=== PATIENT | female | born 1950 | race African-American/Black ===

== ENCOUNTER 2018-10-02 20:17 | Emergency (ER) | payer OTHER, MEDICAID ==
[~2018-10-02] VITALS: Ht 162.6 cm; Wt 94.8 kg
[~2018-10-02 20:17] MED LIST: ANAS1TAB7; EPOGEN
[2018-10-02 20:59] VITALS: BP 170/77
== END 2018-10-03 02:06 | disposition home or self-care (01) ==
LOC: ER 20:21
DX: M65.311 Trigger thumb, right thumb (principal); E78.5 Hyperlipidemia, unspecified; Z90.49 Acquired absence of other specified parts of digestive tract; Z90.710 Acquired absence of both cervix and uterus
CPT/HCPCS: 29125; 73140

== ENCOUNTER 2024-08-06 13:51 | Inpatient (IN) | payer OTHER, MEDICAID ==
[~2024-08-06] VITALS: Ht 162.6 cm; Wt 96.3 kg
--- NOTE | 2024-08-06 14:40 | ECG ---
[facility] Test Date: 2024-08-06 Test Time: 14:19:22 Pat Name: CLARIBEL GEIGER Department: ER Room: 0222T Gender: F Mamma Logist: PAM : 1950 Requested By: LUCIANO LUGO Order Number: [id number] Reading MD: Tavares Cho Measurements Intervals Union Rate: 97 P: 67 LA: 131 QRS: 18 QRSD: 78 T: -18 QT: 416 QTc: 529 Interpretive Statements Sinus rhythm Low voltage, precordial leads Nonspecific T abnormalities, anterior leads Prolonged QT interval Baseline wander in lead(s) I,II,III,aVR,aVF,V1,V2,V3,V4,V6 Electronically Signed On 08-12-2024 21:46:36 PDT by Tavares Cho Please click the below link to view image of tracing.
--- NOTE | 2024-08-06 15:01 | ED.PDOC ---
SOB-HPI HPI Comments 74 y.o female with PMHx of breast cancer, HTN, hyperlipidemia, presents to the ED for a chief complaint of SOB associated with palpitations that started 1 week ago. Patient reports SOB worsens on exertion and is now experiencing lightheadedness with generalized weakness. Patient denies any nausea, vomiting, fever, chills, leg swelling, back pain. Patient was saturating at 86% on room air, was placed on 2 liters of oxygen via NC with improvement on respiration and saturation. 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 Family History Family History: Unknown Social History Smoker: Non-Smoker Alcohol: Denies ETOH Use Drugs: Denies Drug Use Lives In: Home Constitutional: denies: chills, diaphoresis, fatigue, fever, malaise, sweats, weakness, others EENTM: denies: blurred vision, double vision, ear bleeding, ear discharge, ear drainage, ear pain, ear ringing, eye pain, eye redness, hearing loss, mouth pain, mouth swelling, nasal discharge, nose bleeding, nose congestion, nose pain, photophobia, tearing, throat pain, throat swelling, voice changes, others Respiratory: reports: SOB at rest, shortness of breath, SOB with excertion; denies: cough, hemoptysis, orthopnea, stridor, wheezing, others Cardiovascular: reports: palpitations; denies: chest pain, dizzy spells, diaphoresis, Dyspnea on exertion, edema, irregular heart beat, left arm pain, lightheadedness, PND, syncope, others Gastrointestinal: denies: abdomen distended, abdominal pain, blood streaked bowels, constipated, diarrhea, dysphagia, difficulty swallowing, hematemesis, melena, nausea, poor appetite, poor fluid intake, rectal bleeding, rectal pain, vomiting, others Genitourinary: denies: abnormal vagina bleeding, burning, dyspareunia, dysuria, flank pain, frequency, hematuria, incontinence, pain, , vagina discharge, urgency, others Neurological: denies: dizziness, fainting, headache, left sided numbness, left sided weakness, numbness, paresthesia, pre-existing deficit, right sided numbness, right sided weakness, seizure, speech problems, tingling, tremors, weakness, others Musculoskeletal: denies: back pain, gout, joint pain, joint swelling, muscle pain, muscle stiffness, neck pain, others Integumetry: denies: bruises, change in color, change in hair/nails, dryness, laceration, lesions, lumps, rash, wounds, others Allergic/Immunocompromised: denies: Difficulty Healing, Frequent Infections, Hives, Itching, others Hematologic/Lymphatic: denies: anemia, blood clots, easy bleeding, easy bruising, swollen glands, others Endocrine: denies: excessive hunger, excessive sweating, excessive thirst, excessive urination, flushing, intolerance to cold, intolerance to heat, unexplained weight gain, unexplained weight loss, others Psychiatric: denies: anxiety, bipolar disorder, depression, hopeless, panic disorder, schizophrenia, sleepless, suicidal, others All Other Systems: Reviewed and Negative Physical Exam General Appearance: Moderate Distress HEENT: Normal ENT Inspection, Pharynx Normal, TMs Normal Neck: Full Range of Motion, Non-Tender, Normal, Normal Inspection Respiratory: Chest Non-Tender, Lungs Clear, No Accessory Muscle Use, No Respiratory Distress, Normal Breath Sounds Cardiovascular: No Edema, No JVD, No Murmur, No Gallop, Normal Peripheral Pulses, Regular Rate/Rhythm Breast Exam: Deferred Gastrointestinal: No Organomegaly, Non Tender, No Pulsatile Mass, Normal Bowel Sounds, Soft Genitalia: Deferred Pelvic: Deferred Rectal: Deferred Extremities: No calf tenderness, Normal capillary refill, Normal inspection, Normal range of motion, Non-tender, No pedal edema Musculoskeletal : Apperance: Normal Neurologic: Alert, waste disposal leakage tester II-XII nml as Tested, No Motor Deficits, Normal Affect, Normal Mood, No Sensory Deficits Cerebellar Function: Normal Reflexes: Normal Skin: Dry, Normal Color, Warm Lymphatic: No Adenopathy EKG EKG : Pulse Rate (adult): 97 Cardiac Rhythm: NSR Hypertrophy: LVH Was a procedure done? Was a procedure done?: No Differential Dx Differential Diagnosis: Asthma, Bronchitis, COPD, Pneumonia, Respiratory Distress, URI X-Ray, Labs, Meds, VS Vital Signs Date Time Temp Pulse Resp B/P (MAP) Pulse Ox O2 Delivery O2 Flow Rate FiO2 08/06/24 16:35 98.1 93 18 136/71 97 2.0 28 98.1 08/06/24 15:01 97 08/06/24 14:19 97 08/06/24 14:17 98.1 100 20 136/71 (92) 86 98.1 Lab Test 08/06/24 16:19 08/06/24 15:23 Range/Units Troponin I High Sensitivity 22 21 </=34 ng/L White Blood Count 9.0 4.4-10.8 10^3/uL Red Blood Count 4.05 4.0-5.20 10^6/uL Hemoglobin 11.8 L 12.2-16.2 g/dL Hematocrit 35.4 L 36.0-46.0 % Mean Corpuscular Volume 87.3 80.0-100.0 fL Mean Corpuscular Hemoglobin 29.1 28.0-32.0 pg Mean Corpuscular Hemoglobin Concent 33.3 32.0-36.0 g/dL Red Cell Distribution Width 15.5 H 11.8-14.3 % Platelet Count 242 140-450 10^3/uL Mean Platelet Volume 7.0 6.9-10.8 fL Neutrophils (%) (Auto) 70.4 37.0-80.0 % Lymphocytes (%) (Auto) 24.9 10.0-50.0 % Monocytes (%) (Auto) 4.4 0.0-12.0 % Eosinophils (%) (Auto) 0.1 0.0-7.0 % Basophils (%) (Auto) 0.2 0.0-2.0 % Neutrophils # (Auto) 6.3 1.6-8.6 10 ^3/uL Lymphocytes # (Auto) 2.2 0.4-5.4 10 ^3/uL Monocytes # (Auto) 0.4 0-1.3 10 ^3/uL Eosinophils # (Auto) 0 0-0.8 10 ^3/uL Basophils # (Auto) 0 0-0.2 10 ^3/uL Nucleated Red Blood Cells 0.2 % Erythrocyte Sedimentation Rate Pending D-Dimer, Quantitative 11.47 H 0.0-0.49 mg/L FEU Sodium Level 143 136-145 mmol/L Potassium Level 3.6 3.5-5.1 mmol/L Chloride Level 108 H 98-107 mmol/L Carbon Dioxide Level 24 20-31 mmol/L Anion Gap 11 5-15 Blood Urea Nitrogen 13 9-23 mg/dL Creatinine 0.74 0.550-1.02 mg/dL Glomerular Filtration Rate Calc 86 >90 mL/min BUN/Creatinine Ratio 17.6 10.0-20.0 Serum Glucose 103 74-106 mg/dL Calcium Level 9.3 8.7-10.4 mg/dL C-Reactive Protein High Sensitivity Pending B-Type Natriuretic Peptide 213.69 0-100 pg/mL XY CHEST XRAY 1 VIEW, IMPRESSION: Left basilar consolidation with pleural effusion could be pneumonia. The patient's troponin level x2 is within normal limits The CBC shows anemia with a hemoglobin of 11.8 and hematocrit of 35.4 The D-dimer is elevated at 11.47 At this time, we are getting a CAT scan of the chest to rule out PE BNP is 213.69 IV Hep-Lock has been established The patient will be admitted at this time The hospitalist did order a CAT scan angio of the chest to rule out PE Images Reviewed?: Images reviewed and evaluated by me Time of 1ST Reevaluation: 15:01 Reevaluation 1ST: Unchanged Patient Education/Counseling: Diagnosis, Treatment, Prognosis Family Education/Counseling: No Family Present Departure 1 Departure Time of Disposition: 16:56 Impression: Primary Impression: Acute chest pain Additional Impression: Elevated d-dimer Disposition: 09 ADMITTED INPATIENT Admit to: Tele Condition: Fair Critical Care Note Critical Care Time?: Yes (45 min-critical care time only) Stability Stability form required: Yes Unstable for transfer: Telemetry monitoring (Telemetry monitoring required), ED Physician Assesment (Clinical assesment) Heart Score Heart Score: Heart Score Response (Comments) Value History Slightly Suspicious 0 EKG Normal 0 Age >65 2 Risk Factors 1 or 2 risk factors 1 Troponin Normal limit 0 Total 3 I personally scribed for LUCIANO LUGO MD ([email or web address]) on 08/06/24 at 15:01. Electronically submitted by Maureen Isidro ([facility]). I personally scribed for LUCIANO LUGO MD ([email or web address]) on 08/06/24 at 15:16. Electronically submitted by Maureen Isidro ([facility]). I personally scribed for LUCIANO LUGO MD ([email or web address]) on 08/06/24 at 15:59. Electronically submitted by Maureen Isidro ([facility]). LUCIANO LUGO MD August 06, 2024 15:01
[2024-08-06 15:34] LABS: Basophils # (auto) 0 10 ^3/uL (0-0.2); Basophils % (auto) 0.2 % (0.0-2.0); Eosinophils # (auto) 0 10 ^3/uL (0-0.8); Eosinophils % (auto) 0.1 % (0.0-7.0); Hematocrit 35.4 % (36.0-46.0); Hemoglobin 11.8 g/dL (12.2-16.2); Lymphocytes # (auto) 2.2 10 ^3/uL (0.4-5.4); Lymphocytes % (auto) 24.9 % (10.0-50.0); Mean Corpuscular Hemoglobin 29.1 pg (28.0-32.0); Mean Corpuscular Hgb Conc. 33.3 g/dL (32.0-36.0); Mean Corpuscular Volume 87.3 fL (80.0-100.0); Monocytes # (auto) 0.4 10 ^3/uL (0-1.3); Monocytes % (auto) 4.4 % (0.0-12.0); Neutrophils # (auto) 6.3 10 ^3/uL (1.6-8.6); Neutrophils % (auto) 70.4 % (37.0-80.0); Nucleated Red Blood Cells % 0.2 %; Platelet Count (auto) 242 10^3/uL (140-450); Red Blood Cells 4.05 10^6/uL (4.0-5.20); Red Cell Distribution Width 15.5 % (11.8-14.3)
[2024-08-06 15:43] LABS: Potassium 3.6 mmol/L (3.5-5.1); Sodium 143 mmol/L (136-145)
[2024-08-06 15:44] LABS: Anion Gap 11 (5-15); Carbon Dioxide 24 mmol/L (20-31)
[2024-08-06 15:45] LABS: Calcium 9.3 mg/dL (8.7-10.4)
--- NOTE | 2024-08-06 15:46 | DVH ---
XY CHEST XRAY 1 VIEW, HISTORY: sob COMPARISON: None None TECHNICAL DATA: 1 view of the chest was obtained. FINDINGS: Lines and tubes: None Cardiomediastinal silhouette: normal Pulmonary vasculature: normal Lung expansion: normal Lung airspace: Left basilar consolidation with pleural effusion could be pneumonia. Lung interstitium: normal Pleura: Pneumothorax: no Bones: Unremarkable Other: no IMPRESSION: Left basilar consolidation with pleural effusion could be pneumonia.
[2024-08-06 15:48] LABS: Chloride 108 mmol/L (98-107)
[2024-08-06 15:49] LABS: BUN/Creatinine Ratio 17.6 (10.0-20.0); Blood Urea Nitrogen 13 mg/dL (9-23); Glucose 103 mg/dL (74-106)
[2024-08-06] MEDS ORDERED: AZITHROMYCIN 500MG/ 250ML 250 ML IV SCH (16:30)
[2024-08-06] MEDS ORDERED: ALBUTEROL SULF 2.5 MG/0.5ML(0.5%) NEB SOLN NEB SCH (16:30)
[2024-08-06 16:35] VITALS: BP 136/71; PULSE 93; RESP 18; TEMP 98.1; O2SAT 97
--- NOTE | 2024-08-06 16:44 | DVHHP2 ---
Admitting Diagnosis: Shortness of breaths History of Present Illness 74 y.o female with PMHx of breast cancer, HTN, hyperlipidemia, presents to the ED for a chief complaint of SOB associated with palpitations that started 1 week ago. Patient reports SOB worsens on exertion and is now experiencing lightheadedness with generalized weakness. Patient denies any nausea, vomiting, fever, chills, leg swelling, back pain. Patient was saturating at 86% on room air, was placed on 2 liters of oxygen via NC with improvement on respiration and saturation. 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 Family History Family History: Unknown Social History Smoker: Non-Smoker Alcohol: Denies ETOH Use Drugs: Denies Drug Use Lives In: Home Allergies: Coded Allergies: NO KNOWN ALLERGIES (Unverified , 08/29/09) Home Meds Reported Medications [Anastrozole1 Mg] (Anastrozole) 1 MG TAB No Conflict Check, MG 09/08/12 [Epogen] No Conflict Check 11/11/09 Current Medications Current Medications Medications (Trade) Dose Ordered Sig/Edouard Route PRN Reason Start Time Stop Time Status Last Admin Ceftriaxone Sodium 50 ml @ 100 mls/hr DAILY IV 08/06/24 16:30 Azithromycin 250 ml @ 125 mls/hr DAILY IV 08/06/24 16:30 UNV Albuterol (Ventolin Medneb) 2.5 mg Q6H NEB 08/06/24 16:30 08/06/24 16:34 DC Albuterol (Ventolin Medneb) 2.5 mg Q6H NEB 08/06/24 18:00 Vital Signs Vital Signs Date Time Temp Pulse Resp B/P (MAP) Pulse Ox O2 Delivery O2 Flow Rate FiO2 08/06/24 15:01 97 08/06/24 14:17 98.1 20 136/71 (92) 86 98.1 Physical Exam Generally 75 years old woman, overweight, sitting on chair. On nasal cannula. No apparent distress HEENT-atraumatic, normocephalic Heart-regular rate and rhythm Lungs decreased breath sounds on left lower lung sparks. Intermittent crackles Abdomen soft nontender nondistended Musculoskeletal-no edema cyanosis Neuro-AO x3, no focal deficits Results Labs Test 08/06/24 16:19 08/06/24 15:23 Range/Units White Blood Count 9.0 4.4-10.8 10^3/uL Red Blood Count 4.05 4.0-5.20 10^6/uL Hemoglobin 11.8 L 12.2-16.2 g/dL Hematocrit 35.4 L 36.0-46.0 % Mean Corpuscular Volume 87.3 80.0-100.0 fL Mean Corpuscular Hemoglobin 29.1 28.0-32.0 pg Mean Corpuscular Hemoglobin Concent 33.3 32.0-36.0 g/dL Red Cell Distribution Width 15.5 H 11.8-14.3 % Platelet Count 242 140-450 10^3/uL Mean Platelet Volume 7.0 6.9-10.8 fL Neutrophils (%) (Auto) 70.4 37.0-80.0 % Lymphocytes (%) (Auto) 24.9 10.0-50.0 % Monocytes (%) (Auto) 4.4 0.0-12.0 % Eosinophils (%) (Auto) 0.1 0.0-7.0 % Basophils (%) (Auto) 0.2 0.0-2.0 % Neutrophils # (Auto) 6.3 1.6-8.6 10 ^3/uL Lymphocytes # (Auto) 2.2 0.4-5.4 10 ^3/uL Monocytes # (Auto) 0.4 0-1.3 10 ^3/uL Eosinophils # (Auto) 0 0-0.8 10 ^3/uL Basophils # (Auto) 0 0-0.2 10 ^3/uL Nucleated Red Blood Cells 0.2 % D-Dimer, Quantitative 11.47 H 0.0-0.49 mg/L FEU Sodium Level 143 136-145 mmol/L Potassium Level 3.6 3.5-5.1 mmol/L Chloride Level 108 H 98-107 mmol/L Carbon Dioxide Level 24 20-31 mmol/L Anion Gap 11 5-15 Blood Urea Nitrogen 13 9-23 mg/dL Creatinine 0.74 0.550-1.02 mg/dL Glomerular Filtration Rate Calc 86 >90 mL/min BUN/Creatinine Ratio 17.6 10.0-20.0 Serum Glucose 103 74-106 mg/dL Calcium Level 9.3 8.7-10.4 mg/dL B-Type Natriuretic Peptide 213.69 0-100 pg/mL Primary Diagnosis Shortness of breaths likely due to left lower lobe pneumonia Plan Chest x-ray shows left lower lobe pneumonia Patient has history of cancer likely immunosuppressed Check CRP, procalcitonin, ESR, sputum culture Start ceftriaxone 1 g daily Azithromycin 500 mg IV daily Adjust antibiotic according to the ID and sensitivity Oxygen saturation goal greater than 90% Duo nebs q.6 hours If symptoms does not improve, check CT chest for abnormal lung pathology Regular diet Full code Lovenox for DVT prophylaxis No GI prophylaxis needed Plan discussed with: Patient Problems List: (1) Left lower lobe pneumonia Date of Service: August 06, 2024 Billing Provider: SHAHRZAD MURRY MD Common Visit Codes: [id number] INP/OBS CARE (MOD) SHAHRZAD MURRY MD August 06, 2024 16:44
[2024-08-06] MEDS ORDERED: DOCUSATE SOD 100 MG CAP PO PRN (16:45)
[2024-08-06] MEDS ORDERED: HYDROcodone-ACET 5/325MG TAB PO PRN (16:45)
[2024-08-06] MEDS ORDERED: ONDANSETRON HCL 4 MG/2 ML VIAL IV PRN (16:45)
[2024-08-06] MEDS: cefTRIAXone 1GM/50ML D5W 50 ML IV SCH (18:20)
[2024-08-06] MEDS: DOXYCYCLINE 100MG/100ML 100 ML IV SCH (18:20)
[2024-08-06 18:22] LABS: COVID19 ANTIGEN SOFIA FIA NEGATIVE (NEGATIVE)
[2024-08-06] MEDS: IOHEXOL 350 MG/ML 100ML IJ ONE (19:08)
[2024-08-06 19:14] VITALS: PULSE 91; RESP 18; O2SAT 92
[2024-08-06] MEDS: ALBUTEROL SULF 2.5 MG/0.5ML(0.5%) NEB SOLN NEB SCH (19:14)
[2024-08-06 19:19] LABS: Erythrocyte Sedimentation Rate 13 mm/hr (0-20)
[2024-08-06 19:20] VITALS: PULSE 91; RESP 18; O2SAT 98
--- NOTE | 2024-08-06 19:30 | DVH ---
Procedure: CT CT ANGIO CHEST CONTRAST Reason for study/Clinical History: elevated d-dimer r/o PE Comparison Study: None Exam Date: 08/06/2024 06:37 PM Radiation Dose Information: CT Dose: CTDI volume is 8.88 mGy. Dose-length product is 828.06 mGy*cm Contrast: Type of contrast: Omni 350 Contrast inject: 50 mL Contrast wasted:0 TECHNIQUE: After the uneventful administration of intravenous contrast intravenously, CT imaging was performed through the chest. Coronal and sagittal reformations were performed by the technologist. FINDINGS: Lower Neck: Enlarged heterogeneous right and left lobes of the thyroid consider thyroid ultrasound fo r further evaluation. Aorta and Vasculature: Normal caliber of thoracic aorta. Filling defects in the right and left pulmon destiny arteries in the 3rd and 4th or order branches. Findings are consistent with pulmonary emboli. Lymph Nodes: No enlarged intrathoracic lymph nodes. Mediastinum: Heart size is normal. There is no pericardial effusion. The esophagus is unremarkable. Lungs: Moderate left pleural effusion with atelectasis. No suspicious pulmonary nodule or mass. Musculoskeletal: No acute osseous abnormality. Upper abdomen: Limited portions of the upper abdomen are unremarkable. IMPRESSION: 1. Bilateral pulmonary emboli in the 3rd and 4th order branches. 2. Moderately large left pleural effusion with atelectasis in the left upper lobe. CRITICAL FINDINGS Critical Result: PULMONARY EMBOLI Findings discussed with Dr Kidd , at 08/06/2024 07:08 PM, and acknowledged receipt and understandin g of the findings. All CT scans at this medical facility are performed using dose modulation techniques as appropriate t o a performed exam including the following: Automated exposure control was utilized; adjustment of th e MA and/or KV according to patient size; and use of iterative reconstruction technique.
[2024-08-06 19:46] LABS: Urine Bacteria None Seen /hpf (None Seen)
[2024-08-06] MEDS ORDERED: HEPARIN DRIP/D5W 100UNITS/ML 250 ML IV SCH (20:00)
[2024-08-06 20:01] LABS: Urine Blood Negative /uL (Negative); Urine Clarity Clear (Clear); Urine Color Yellow (Yellow); Urine Mucus FEW (None Seen); Urine Protein, UAD 1+ (Negative); Urine Squamous Epithelial Cell FEW /hpf (<5); Urine Urobilinogen Normal (Negative); Urine WBC 4 /HPF (0-5)
[2024-08-06 20:09] LABS: Urine Specific Gravity > 1.050 (1.001-1.035)
[2024-08-06 20:52] VITALS: O2SAT 84
[2024-08-06 21:00] LABS: Basophils # (auto) 0 10 ^3/uL (0-0.2); Basophils % (auto) 0.2 % (0.0-2.0); Eosinophils # (auto) 0 10 ^3/uL (0-0.8); Eosinophils % (auto) 0.1 % (0.0-7.0); Hematocrit 36.6 % (36.0-46.0); Hemoglobin 11.8 g/dL (12.2-16.2); Lymphocytes # (auto) 2.1 10 ^3/uL (0.4-5.4); Lymphocytes % (auto) 21.1 % (10.0-50.0); Mean Corpuscular Hemoglobin 28.9 pg (28.0-32.0); Mean Corpuscular Hgb Conc. 32.2 g/dL (32.0-36.0); Mean Corpuscular Volume 89.9 fL (80.0-100.0); Monocytes # (auto) 0.6 10 ^3/uL (0-1.3); Monocytes % (auto) 5.4 % (0.0-12.0); Neutrophils # (auto) 7.4 10 ^3/uL (1.6-8.6); Neutrophils % (auto) 73.2 % (37.0-80.0); Platelet Count (auto) 243 10^3/uL (140-450); Red Blood Cells 4.08 10^6/uL (4.0-5.20); Red Cell Distribution Width 15.8 % (11.8-14.3); White Blood Cell 10.1 10^3/uL (4.4-10.8)
[2024-08-06 21:13] LABS: INR 1.08 (0.9-1.15); Partial Thromboplastin Time 23.9 SEC (24.5-34.5); Prothrombin Time 11.4 sec (9.3-11.8)
[2024-08-06 21:44] VITALS: BP 133/49; PULSE 102; RESP 20; TEMP 97.7; O2SAT 91
[2024-08-06] MEDS ORDERED: TIZA4CAP PO (21:52)
[2024-08-06] MEDS ORDERED: SIMV20TA20 PO (21:52)
[2024-08-06] MEDS ORDERED: CEL100T PO (21:52)
[2024-08-06] MEDS ORDERED: METF-1145 PO (21:52)
[2024-08-06] MEDS ORDERED: CARB200T4 PO (21:52)
[2024-08-06] MEDS ORDERED: MELO7.5T7 PO (21:52)
[2024-08-06] MEDS ORDERED: OMEP20TA PO (21:52)
[2024-08-06] MEDS ORDERED: AMLO1TAB23 PO (21:53)
[2024-08-06] MEDS ORDERED: OXY5T GT (21:55)
[2024-08-06] MEDS ORDERED: CHOL20007 PO (21:55)
[2024-08-07] VITALS (15 sets, daily range): BP systolic 107–153; BP diastolic 49–97; PULSE 79–102; RESP 16–20; TEMP 97.5–98.1; O2SAT 90–100
[2024-08-07] MEDS: HEPARIN SODIUM (PORCINE) 5000 UNITS/ML 1ML VIAL IV ONE (01:57)
[2024-08-07] MEDS: SODIUM CHLOR 0.9% PF (SALINE LOCK) 10ML VIAL/SYR IV SCH (01:58)
[2024-08-07] MEDS: HEPARIN DRIP/D5W 100UNITS/ML 250 ML IV SCH ×3 (02:11→21:37)
--- NOTE | 2024-08-07 08:31 | DVH ---
US CHEST ULTRASOUND, HISTORY: FLUID CHECK FOR POSSIBLE THORACENTESIS COMPARISON(S): None TECHNICAL DATA: Transverse and longitudinal images are obtained of the chest. FINDING: IMPRESSION(S): Large left pleural effusion.
[2024-08-07 09:03] LABS: INR 1.11 (0.9-1.15); Prothrombin Time 11.6 sec (9.3-11.8)
[2024-08-07 09:09] LABS: Partial Thromboplastin Time > 139.0 SEC (24.5-34.5)
[2024-08-07] MEDS ORDERED: ENOXAPARIN SOD 40 MG/0.4 ML SYRINGE SC SCH (10:00)
--- NOTE | 2024-08-07 12:37 | DVHPN2 ---
Subjective Patient continues to report having shortness of breath. Reviewed: Care Plan, H&P, Labs, Medications, Previous Orders Changes from previous H/P or p: No Changes General: Per HPI Objective Vitals Vital Signs Date Time Temp Pulse Resp B/P (MAP) Pulse Ox O2 Delivery O2 Flow Rate FiO2 08/07/24 11:08 91 Nasal Cannula 6.0 08/07/24 11:08 44 08/07/24 09:00 97.7 90 20 141/97 (112) 97.7 Intake/Output Intake and Output 08/07/24 07:00 Intake Total 150 ml Balance 150 ml Intake Oral 0 ml IV Total 150 ml General Appearance: Alert, Oriented X3, Cooperative, No acute distress, mild distress HEENT: Atraumatic, PERRLA Lungs: Other (Decreased breath sounds in the base.) Cardiovascular: Normal S1, Normal S2 Abdomen: Normal bowel sounds, Soft Musculoskeletal: Normal sensory function, Normal motor function Skin: Dry, Intact Psych/Mental Status: Mental status NL, Mood NL Medications Current Medications Medications Dose Ordered Sig/Edouard Route Start Time Stop Time Status Last Admin Dose Admin Ceftriaxone Sodium 50 ml @ 100 mls/hr DAILY IV 08/06/24 16:30 08/07/24 09:24 100 MLS/HR Albuterol 2.5 mg Q6H NEB 08/06/24 18:00 08/07/24 06:45 2.5 MG Sodium Chloride 10 ml Q8HR IV 08/06/24 22:00 08/07/24 09:40 10 ML Docusate Sodium 100 mg BIDPRN PRN PO 08/06/24 16:45 Acetaminophen 650 mg Q6HP PRN PO 08/06/24 16:45 Acetaminophen/ Hydrocodone Bitart 1 tab Q4HP PRN PO 08/06/24 16:45 Ondansetron HCl 4 mg Q4HP PRN IV 08/06/24 16:45 Doxycycline Hyclate 100 ml @ 50 mls/hr Q12H IV 08/06/24 17:30 08/07/24 06:30 50 MLS/HR Heparin Sodium/ Dextrose 250 ml @ 10 mls/hr Q24H IV 08/07/24 10:40 08/07/24 10:44 10 MLS/HR Laboratory Results Laboratory Tests 08/06/24 15:23 08/06/24 20:51 Chemistry Test 08/06/24 15:23 Calcium Level 9.3 mg/dL (8.7-10.4) Coagulation Test 08/06/24 15:23 08/06/24 20:51 08/07/24 08:01 D-Dimer, Quantitative 11.47 mg/L FEU (0.0-0.49) H Prothrombin Time 11.4 sec (9.3-11.8) 11.6 sec (9.3-11.8) Prothrombin Time INR 1.08 (0.9-1.15) 1.11 (0.9-1.15) Activated Partial Thromboplast Time 23.9 SEC (24.5-34.5) L > 139.0 SEC (24.5-34.5) *H Cardiac Markers Test 08/06/24 15:23 B-Type Natriuretic Peptide 213.69 pg/mL (0-100) Urinalysis Test 08/06/24 19:30 Urine Color Yellow (Yellow) Urine Clarity Clear (Clear) Urine pH 6.0 (5.0-9.0) Urine Specific [place] > 1.050 (1.001-1.035) Urine Protein 1+ (Negative) H Urine Ketones Negative (Negative) Urine Blood Negative /uL (Negative) Urine Nitrite Negative (Negative) Urine Bilirubin Negative (Negative) Urine Urobilinogen Normal mg/dL (Negative) Urine Leukocyte Esterase Negative /uL (Negative) Urine RBC 9 /hpf (0 - 4) Urine Microscopic WBC 4 /HPF (0-5) Urine Squamous Epithelial Cells Few /hpf (<5) Urine Bacteria None seen /hpf (None Seen) Urine Mucus Few (None Seen) Urine Glucose Normal mg/dL (Normal) Labs and/or images reviewed: Labs reviewed by me, Image(s) reviewed by me Assessment/Plan Assessment/Plan Impression: -acute hypoxic respiratory failure -bilateral pulmonary embolisms -left pleural effusion -history of breast cancer, 10 years ago -degenerative joint disease -rule out DVT -dyslipidemia Plan: -O2 supplementation to keep saturation greater than 92% -IR consultation for thoracentesis -heparin drip, pause no per discretion of interventional radiologist -to be DVT study of lower extremities -pain management -echocardiogram: Pending -check tumor markers -repeat labs in a.m. Total time spent with patient discussing and formulating plan of care: 35 minutes. This medical document was created using an electronic medical record system with [employer] dictation system. Although this document has been carefully reviewed, there may still be some phonetic and typographical errors. These areas are purely typographical due to imperfections of the software programs, and do not reflect any compromise in the patient's medical care. Plan discussed with: Patient, Other (RN) My Orders Orders - VICENTE MARQUIS NP Procedure Category Date Status Time Basic Metabolic Panel LAB 08/08/24 Verified 04:00 Complete Blood Count LAB 08/08/24 Verified 04:00 Bilat Lower Dvt US 08/07/24 Taken 11:17 Ca 125 (Serial) LAB 08/07/24 Transmitted 12:29 Carbohydrate Antigen LAB 08/07/24 Transmitted 19-9 Carcinoembryonic LAB 08/07/24 Transmitted Antigen 12:29 Regular Diet DIET 08/07/24 Transmitted Lunch Date of Service: August 07, 2024 Billing Provider: VICENTE MARQUIS NP Common Visit Codes: [id number] INP/OBS CARE(HIGH) VICENTE MARQUIS NP August 07, 2024 12:37
--- NOTE | 2024-08-07 12:52 | DVH ---
US BiLat Lower DVT HISTORY: positive PE COMPARISON: None TECHNIQUE: Duplex doppler evaluation of the deep venous system of the lower extremity from the common femoral veins, superficial femoral vein, great saphenous vein, deep femoral vein, popliteal vein, an d calf veins, including color doppler and spectral/pulsed waveform analysis, was performed. FINDINGS: Right: - Common femoral vein: Compressible - Deep femoral vein: Compressible - Femoral vein: Compressible - Popliteal vein: Compressible - Posterior tibial vein: Waveforms present - Peroneal vein: Waveforms present - Other: Nothing Left: - Common femoral vein: Compressible - Deep femoral vein: Compressible - Femoral vein: Compressible - Popliteal vein: Non Compressible - Posterior tibial vein: No Waveforms present - Other: Nothing IMPRESSION: Left popliteal vein DVT. Diya (RN) is aware of finding. No right lower extremity deep venous thrombosis.
--- NOTE | 2024-08-07 13:17 | DVH ---
PROCEDURE: ULTRASOUND GUIDED THORACENTESIS USING TEMPORARY CATHETER HISTORY: LT PLEURAL EFFUSION DOCUMENTATION: Informed consent was obtained and a procedural time out was performed. FINDINGS: The risks and benefits of the procedure including bleeding, infection and pneumothorax were explained to the patient and written informed consent obtained. Optimal site for puncture long the left posterior chest wall was determined using real-time ultrasoun d and the region sterilized. Local anesthesia was instilled. A 5 Slovenian catheter was then advanced into the pleural space and 1.2 liters of straw colored flui d was removed. The patient tolerated the procedure well. IMPRESSION: Ultrasound guided left thoracentesis. Procedure performed by Dr. Arana
--- NOTE | 2024-08-07 13:36 | DVH ---
INDICATION: POST THORACENTESIS TECHNIQUE: Frontal view of the chest. COMPARISON: XY CHEST XRAY 1 VIEW on DOS: 08/06/24 FINDINGS: Significantly decreased left pleural effusion status post thoracentesis.. The heart and mediastinal c ontours are grossly unremarkable. There is no evidence of pleural disease. The lungs are clear. T he bony structures of the chest are intact without fracture. IMPRESSION: 1. Significantly decreased left pleural effusion status post thoracentesis. No pneumothorax..
--- NOTE | 2024-08-07 14:16 | CONS ---
Pharmacy Clinical Information: HEPARIN PER PHARMACY SPOKE TO RASHAUN Macdonald REGARDING heparin dose change Current dose: 1350 units/hr CURRENT aPTT: > 139 on 08/07/24 at 08:01 BOLUS: no Hold heparin drip for 1 hr (Renae held drip at 09:40 on 08/07/2024) Then Decrease (new dose): 1000 units/hr Date and time new dose started: 10:44 ON 08/07/2024 Next aPTT: 08/07/2024 AT 16:45 RASHAUN Macdonald READ BACK NEW DOSE: 1000 UNITS/HR PEARL Ho August 07, 2024 14:16
[2024-08-07 15:42] LABS: Body Fluid Red Blood Cells 2444533 CUMM (0-2000); Body Fluid White Blood Cells 2606 CUMM (0-200)
[2024-08-07] MEDS: ACETAMINOPHEN 325 MG TAB PO PRN (18:16)
[2024-08-07 19:27] LABS: INR 1.33 (0.9-1.15); Prothrombin Time 13.7 sec (9.3-11.8)
[2024-08-07 19:38] LABS: Partial Thromboplastin Time 127.4 SEC (24.5-34.5)
[2024-08-08] VITALS (14 sets, daily range): BP systolic 115–157; BP diastolic 52–72; PULSE 77–106; RESP 16–20; TEMP 97.3–99.2; O2SAT 90–100
[2024-08-08 03:57] LABS: Basophils # (auto) 0 10 ^3/uL (0-0.2); Basophils % (auto) 0.3 % (0.0-2.0); Eosinophils # (auto) 0 10 ^3/uL (0-0.8); Hematocrit 32.4 % (36.0-46.0); Hemoglobin 10.6 g/dL (12.2-16.2); Lymphocytes # (auto) 1.6 10 ^3/uL (0.4-5.4); Lymphocytes % (auto) 14.1 % (10.0-50.0); Mean Corpuscular Hgb Conc. 32.7 g/dL (32.0-36.0); Mean Corpuscular Volume 88.6 fL (80.0-100.0); Monocytes # (auto) 0.6 10 ^3/uL (0-1.3); Monocytes % (auto) 5.2 % (0.0-12.0); Neutrophils # (auto) 9.3 10 ^3/uL (1.6-8.6); Neutrophils % (auto) 80.4 % (37.0-80.0); Nucleated Red Blood Cells % 0.1 %; Platelet Count (auto) 238 10^3/uL (140-450); Red Blood Cells 3.66 10^6/uL (4.0-5.20); Red Cell Distribution Width 15.2 % (11.8-14.3); White Blood Cell 11.6 10^3/uL (4.4-10.8)
[2024-08-08 04:02] LABS: Chloride 107 mmol/L (98-107); Sodium 139 mmol/L (136-145)
[2024-08-08 04:03] LABS: Anion Gap 10 (5-15); Carbon Dioxide 22 mmol/L (20-31)
[2024-08-08 04:08] LABS: BUN/Creatinine Ratio 14.5 (10.0-20.0)
[2024-08-08 04:11] LABS: INR 1.08 (0.9-1.15); Partial Thromboplastin Time 45.9 SEC (24.5-34.5); Prothrombin Time 11.4 sec (9.3-11.8)
[2024-08-08 04:25] LABS: Blood Urea Nitrogen 9 mg/dL (9-23); Calcium 8.3 mg/dL (8.7-10.4); Glucose 131 mg/dL (74-106); Potassium 3.3 mmol/L (3.5-5.1)
[2024-08-08] MEDS: HEPARIN DRIP/D5W 100UNITS/ML 250 ML IV SCH ×2 (05:30→15:37)
[2024-08-08 11:33] LABS: INR 1.11 (0.9-1.15); Partial Thromboplastin Time 63.1 SEC (24.5-34.5); Prothrombin Time 11.6 sec (9.3-11.8)
--- NOTE | 2024-08-08 11:50 | CONS ---
Pharmacy Clinical Information: HEPARIN PER PHARMACY SPOKE TO RASHAUN Laboy REGARDING heparin dose change Current dose: 900 units/hr CURRENT aPTT: 63.1 on 08/08/24 at 10:43 BOLUS: no NO dose change Next aPTT: 08/08/2024 AT 17:00 RASHAUN Laboy confirmed NICHOLAS [facility] August 08, 2024 11:50
[2024-08-08] MEDS: POTASSIUM EFFERVESENT TAB 25 MEQ PO ONE (12:07)
[2024-08-08 12:28] LABS: Base Excess -0.2 mmol/L (-2.0-3.0)
--- NOTE | 2024-08-08 13:49 | DVHPN2 ---
Subjective Patient continues to report having shortness of breath. Reviewed: Care Plan, H&P, Labs, Medications, Previous Orders Changes from previous H/P or p: No Changes General: Per HPI Objective Vitals Vital Signs Date Time Temp Pulse Resp B/P (MAP) Pulse Ox O2 Delivery O2 Flow Rate FiO2 08/08/24 11:10 104 125/70 (88) 08/08/24 10:00 94 Simple Mask* 10 99 08/08/24 09:00 98.3 16 98.3 Intake/Output Intake and Output 08/08/24 07:00 Intake Total 900 ml Balance 900 ml Intake Oral 650 ml IV Total 250 ml # Voids 6 General Appearance: Alert, Oriented X3, Cooperative, No acute distress, mild distress HEENT: Atraumatic, PERRLA Lungs: Other (Decreased breath sounds in the base.) Cardiovascular: Normal S1, Normal S2 Abdomen: Normal bowel sounds, Soft Musculoskeletal: Normal sensory function, Normal motor function Skin: Dry, Intact Psych/Mental Status: Mental status NL, Mood NL Medications Current Medications Medications Dose Ordered Sig/Edouard Route Start Time Stop Time Status Last Admin Dose Admin Ceftriaxone Sodium 50 ml @ 100 mls/hr DAILY IV 08/06/24 16:30 08/08/24 09:41 100 MLS/HR Albuterol 2.5 mg Q6H NEB 08/06/24 18:00 08/08/24 05:49 2.5 MG Sodium Chloride 10 ml Q8HR IV 08/06/24 22:00 08/08/24 05:19 10 ML Docusate Sodium 100 mg BIDPRN PRN PO 08/06/24 16:45 Acetaminophen 650 mg Q6HP PRN PO 08/06/24 16:45 08/07/24 18:16 650 MG Acetaminophen/ Hydrocodone Bitart 1 tab Q4HP PRN PO 08/06/24 16:45 Ondansetron HCl 4 mg Q4HP PRN IV 08/06/24 16:45 Doxycycline Hyclate 100 ml @ 50 mls/hr Q12H IV 08/06/24 17:30 08/08/24 05:18 50 MLS/HR Heparin Sodium/ Dextrose 250 ml @ 9 mls/hr Q24H IV 08/08/24 13:45 08/08/24 18:00 UNV Enoxaparin Sodium 90 mg Q12HR SC 08/08/24 22:00 UNV Laboratory Results Laboratory Tests 08/08/24 03:25 Chemistry Test 08/08/24 03:25 Calcium Level 8.3 mg/dL (8.7-10.4) L Coagulation Test 08/07/24 18:31 08/08/24 03:25 08/08/24 10:43 Prothrombin Time 13.7 sec (9.3-11.8) H 11.4 sec (9.3-11.8) 11.6 sec (9.3-11.8) Prothrombin Time INR 1.33 (0.9-1.15) H 1.08 (0.9-1.15) 1.11 (0.9-1.15) Activated Partial Thromboplast Time 127.4 SEC (24.5-34.5) *H 45.9 SEC (24.5-34.5) H 63.1 SEC (24.5-34.5) H Urinalysis Test 08/06/24 19:30 Urine Color Yellow (Yellow) Urine Clarity Clear (Clear) Urine pH 6.0 (5.0-9.0) Urine Specific [place] > 1.050 (1.001-1.035) Urine Protein 1+ (Negative) H Urine Ketones Negative (Negative) Urine Blood Negative /uL (Negative) Urine Nitrite Negative (Negative) Urine Bilirubin Negative (Negative) Urine Urobilinogen Normal mg/dL (Negative) Urine Leukocyte Esterase Negative /uL (Negative) Urine RBC 9 /hpf (0 - 4) Urine Microscopic WBC 4 /HPF (0-5) Urine Squamous Epithelial Cells Few /hpf (<5) Urine Bacteria None seen /hpf (None Seen) Urine Mucus Few (None Seen) Urine Glucose Normal mg/dL (Normal) Blood Gas Results Test 08/08/24 12:17 Arterial Blood pH 7.492 (7.350-7.450) FiO2 % 60.0 Microbiology Microbiology Date/Time Source Procedure Growth Status 08/07/24 13:08 Pleural Fluid Gram Stain - Final Resulted 08/07/24 13:08 Pleural Fluid Aerobic Culture - Preliminary Resulted 08/06/24 18:18 Blood Blood Culture - Preliminary NO GROWTH AFTER 24 HOURS OF INCUBATION. Resulted Labs and/or images reviewed: Labs reviewed by me, Image(s) reviewed by me Assessment/Plan Assessment/Plan Impression: -acute hypoxic respiratory failure -bilateral pulmonary embolisms -left pleural effusion -history of breast cancer, 10 years ago -degenerative joint disease -rule out DVT -dyslipidemia Plan: Events: Patient with increased O2 requirements, now on simple mask at 10 L/min. DVT study positive for occlusion to left popliteal vein. Thoracentesis with 1.2 L removed. -O2 supplementation to keep saturation greater than 92% -stop heparin drip this evening, transitioned to Lovenox -pain management -echocardiogram: Pending -check tumor markers: Pending -repeat labs in a.m. Total time spent with patient discussing and formulating plan of care: 35 minutes. This medical document was created using an electronic medical record system with [employer] dictation system. Although this document has been carefully reviewed, there may still be some phonetic and typographical errors. These areas are purely typographical due to imperfections of the software programs, and do not reflect any compromise in the patient's medical care. Plan discussed with: Patient, Other (RN) My Orders Orders - VICENTE MARQUIS NP Procedure Category Date Status Time Abg W/ Co-Ox RT 08/08/24 Logged 11:40 Complete Blood Count LAB 08/09/24 Verified 04:00 Comprehensive LAB 08/09/24 Verified Metabolic Panel 04:00 Heparin Drip/D5w PHA 08/08/24 Logged 100units/Ml 13:45 Enoxaparin Sodium PHA 08/08/24 Logged (Lovenox) 22:00 Date of Service: August 08, 2024 Billing Provider: VICENTE MARQUIS NP Common Visit Codes: [id number] INP/OBS CARE(HIGH) VICENTE MARQUIS NP August 08, 2024 13:49
[2024-08-08 14:07] LABS: Protein, Body Fluid 13.9 g/dL (.)
[2024-08-08 17:45] LABS: INR 1.14 (0.9-1.15); Prothrombin Time 11.9 sec (9.3-11.8)
[2024-08-08 18:13] LABS: Partial Thromboplastin Time 74.3 SEC (24.5-34.5)
[2024-08-08] MEDS: ENOXAPARIN SOD 100 MG/1 ML SYRINGE SC SCH (23:03)
[2024-08-09] VITALS (14 sets, daily range): BP systolic 114–140; BP diastolic 51–70; PULSE 81–111; RESP 12–18; TEMP 97.8–99.2; O2SAT 89–100
[2024-08-09 08:40] LABS: Basophils # (auto) 0 10 ^3/uL (0-0.2); Basophils % (auto) 0.2 % (0.0-2.0); Eosinophils # (auto) 0.1 10 ^3/uL (0-0.8); Eosinophils % (auto) 0.9 % (0.0-7.0); Hematocrit 31.5 % (36.0-46.0); Hemoglobin 10.1 g/dL (12.2-16.2); Lymphocytes # (auto) 1.5 10 ^3/uL (0.4-5.4); Lymphocytes % (auto) 12.6 % (10.0-50.0); Mean Corpuscular Hemoglobin 28.9 pg (28.0-32.0); Mean Corpuscular Hgb Conc. 32.1 g/dL (32.0-36.0); Mean Corpuscular Volume 90.1 fL (80.0-100.0); Monocytes # (auto) 0.8 10 ^3/uL (0-1.3); Monocytes % (auto) 6.7 % (0.0-12.0); Neutrophils # (auto) 9.6 10 ^3/uL (1.6-8.6); Neutrophils % (auto) 79.6 % (37.0-80.0); Nucleated Red Blood Cells % 0.1 %; Platelet Count (auto) 227 10^3/uL (140-450); Red Blood Cells 3.49 10^6/uL (4.0-5.20); Red Cell Distribution Width 15.6 % (11.8-14.3); White Blood Cell 12.1 10^3/uL (4.4-10.8)
[2024-08-09 08:58] LABS: Alanine Aminotransferase 21 U/L (7-40); Albumin 3.8 g/dL (3.2-4.8); Alkaline Phosphatase 108 U/L (46-116); Anion Gap 10 (5-15); Aspartate Aminotransferase 14 U/L (13-40); BUN/Creatinine Ratio 17.5 (10.0-20.0); Blood Urea Nitrogen 11 mg/dL (9-23); Calcium 9.2 mg/dL (8.7-10.4); Carbon Dioxide 23 mmol/L (20-31); Chloride 106 mmol/L (98-107); Potassium 3.9 mmol/L (3.5-5.1); Sodium 139 mmol/L (136-145); Total Protein 6.2 g/dL (5.7-8.2)
[2024-08-09 08:59] LABS: Bilirubin, Total 0.4 mg/dL (0.2-1.0)
[2024-08-09 09:01] LABS: Glucose 111 mg/dL (74-106)
--- NOTE | 2024-08-09 13:35 | DVHPN2 ---
Subjective Patient continues to report having shortness of breath. Reviewed: Care Plan, H&P, Labs, Medications, Previous Orders Changes from previous H/P or p: No Changes General: Per HPI Objective Vitals Vital Signs Date Time Temp Pulse Resp B/P (MAP) Pulse Ox O2 Delivery O2 Flow Rate FiO2 08/09/24 12:07 101 18 99 08/09/24 10:00 Simple Mask* 8 60 08/09/24 09:00 98.7 129/66 (87) 98.7 Intake/Output Intake and Output 08/09/24 07:00 Intake Total 1850 ml Balance 1850 ml Intake Oral 1600 ml IV Total 250 ml # Voids 4 # Bowel Movements 1 General Appearance: Alert, Oriented X3, Cooperative, No acute distress, mild distress HEENT: Atraumatic, PERRLA Lungs: Other (Decreased breath sounds in the base.) Cardiovascular: Normal S1, Normal S2 Abdomen: Normal bowel sounds, Soft Musculoskeletal: Normal sensory function, Normal motor function Skin: Dry, Intact Psych/Mental Status: Mental status NL, Mood NL Medications Current Medications Medications Dose Ordered Sig/Edouard Route Start Time Stop Time Status Last Admin Dose Admin Ceftriaxone Sodium 50 ml @ 100 mls/hr DAILY IV 08/06/24 16:30 08/09/24 08:38 100 MLS/HR Albuterol 2.5 mg Q6H NEB 08/06/24 18:00 08/09/24 12:01 2.5 MG Sodium Chloride 10 ml Q8HR IV 08/06/24 22:00 08/09/24 05:32 10 ML Docusate Sodium 100 mg BIDPRN PRN PO 08/06/24 16:45 Acetaminophen 650 mg Q6HP PRN PO 08/06/24 16:45 08/08/24 23:39 650 MG Acetaminophen/ Hydrocodone Bitart 1 tab Q4HP PRN PO 08/06/24 16:45 Ondansetron HCl 4 mg Q4HP PRN IV 08/06/24 16:45 Doxycycline Hyclate 100 ml @ 50 mls/hr Q12H IV 08/06/24 17:30 08/09/24 05:25 50 MLS/HR Enoxaparin Sodium 90 mg Q12HR SC 08/08/24 22:00 08/09/24 08:37 90 MG Laboratory Results Laboratory Tests 08/09/24 07:31 Chemistry Test 08/09/24 07:31 Albumin 3.8 g/dL (3.2-4.8) Calcium Level 9.2 mg/dL (8.7-10.4) Total Protein 6.2 g/dL (5.7-8.2) Coagulation Test 08/08/24 17:06 Prothrombin Time 11.9 sec (9.3-11.8) H Prothrombin Time INR 1.14 (0.9-1.15) Activated Partial Thromboplast Time 74.3 SEC (24.5-34.5) *H LFT Test 08/09/24 07:31 Alanine Aminotransferase (ALT) 21 U/L (7-40) Alkaline Phosphatase 108 U/L (46-116) Aspartate Amino Transferase (AST) 14 U/L (13-40) Total Bilirubin 0.4 mg/dL (0.2-1.0) Urinalysis Test 08/06/24 19:30 Urine Color Yellow (Yellow) Urine Clarity Clear (Clear) Urine pH 6.0 (5.0-9.0) Urine Specific [place] > 1.050 (1.001-1.035) Urine Protein 1+ (Negative) H Urine Ketones Negative (Negative) Urine Blood Negative /uL (Negative) Urine Nitrite Negative (Negative) Urine Bilirubin Negative (Negative) Urine Urobilinogen Normal mg/dL (Negative) Urine Leukocyte Esterase Negative /uL (Negative) Urine RBC 9 /hpf (0 - 4) Urine Microscopic WBC 4 /HPF (0-5) Urine Squamous Epithelial Cells Few /hpf (<5) Urine Bacteria None seen /hpf (None Seen) Urine Mucus Few (None Seen) Urine Glucose Normal mg/dL (Normal) Microbiology Microbiology Date/Time Source Procedure Growth Status 08/07/24 13:08 Pleural Fluid Gram Stain - Final Resulted 08/07/24 13:08 Pleural Fluid Aerobic Culture - Preliminary Resulted 08/06/24 18:18 Blood Blood Culture - Preliminary NO GROWTH AFTER 48 HOURS OF INCUBATION. Resulted Labs and/or images reviewed: Labs reviewed by me, Image(s) reviewed by me Assessment/Plan Assessment/Plan Impression: -acute hypoxic respiratory failure -bilateral pulmonary embolisms -left pleural effusion -history of breast cancer, 10 years ago -degenerative joint disease -rule out DVT -dyslipidemia Plan: Events: Continues to be on O2 supplementation 6 L/min. Pleural fluid cytology pending. -O2 supplementation to keep saturation greater than 92% -continue anticoagulation with Lovenox -pain management -echocardiogram: Pending -check tumor markers: Reviewed -repeat labs and chest x-ray in a.m. -long discussion made with the patient regarding noted differential diagnosis. Verbalized understanding. All questions answered. Total time spent with patient discussing and formulating plan of care: 35 minutes. This medical document was created using an electronic medical record system with [employer] dictation system. Although this document has been carefully reviewed, there may still be some phonetic and typographical errors. These areas are purely typographical due to imperfections of the software programs, and do not reflect any compromise in the patient's medical care. Plan discussed with: Patient, Other (RN) My Orders Orders - VICENTE MARQUIS NP Procedure Category Date Status Time Enoxaparin Sodium PHA 08/08/24 In Process (Lovenox) 22:00 Date of Service: August 09, 2024 Billing Provider: VICENTE MARQUIS NP Common Visit Codes: [id number] INP/OBS CARE(HIGH) VICENTE MARQUIS NP August 09, 2024 13:35
[2024-08-10] VITALS (15 sets, daily range): BP systolic 109–145; BP diastolic 53–69; PULSE 90–102; RESP 16–19; TEMP 97.4–98.6; O2SAT 93–100
--- NOTE | 2024-08-10 08:59 | DVHSR ---
APPROVED REPORT EXAM: Two-dimensional and M-mode echocardiogram with Doppler and color Doppler. Blood Pressure: 153/69 mmHg INDICATION PE RISK FACTORS Height: 5'4", Weight: 165 DIMENSIONS LVDd4.2 (3.8-5.7cm)LA (2D)3.8 (1.9-4.0cm)Aortic Root (2.0-3.7cm) LVDs2.6 (2.5-4.0cm)LA (MM) (1.9-4.0cm)Aortic Cusp Exc (1.5-2.0cm) EF (%) 67.0 (55-70%)Rt. Atrium4.3 (1.9-4.0cm)Asc. Aorta cm IVSd0.8 (0.7-1.1cm)RV (D) (1.8-2.4cm) Mitral Valve MitralMitral Stenosis E/A ratio0.02D MVAcm2 Tricuspid Valve TR Velocity3.62m/s [id number] Other Information Quality : Technically LimitedRhythm : Technically limited study due to body habitus. Conclusion Sinus rhythm. Off axis views. Right atrial enlargement. RV enlargement. RV outflow tract enlargement. Pulmonary artery enlargeme nt. Valves appear to be structurally. Left ventricular function is preserved. EF of 60% with normal RV function. [id number] tricuspid insufficiency with pulmonary hypertension. No pericardial effusion masses or vegetations. There appears to be large left pleural effusion.
[2024-08-10] MEDS: SODIUM CHLORIDE 0.9% 1,000 ML IV ONE (12:15)
--- NOTE | 2024-08-10 12:37 | DVHPN2 ---
Subjective Patient continues to report having shortness of breath. Reviewed: Care Plan, H&P, Labs, Medications, Previous Orders Changes from previous H/P or p: No Changes General: Per HPI Objective Vitals Vital Signs Date Time Temp Pulse Resp B/P (MAP) Pulse Ox O2 Delivery O2 Flow Rate FiO2 08/10/24 11:52 97 16 100 08/10/24 11:46 Nasal Cannula 4.0 08/10/24 11:46 36 08/10/24 09:00 98.6 129/53 (78) 98.6 Intake/Output Intake and Output 08/10/24 07:00 Intake Total 2165 ml Balance 2165 ml Intake Oral 1915 ml IV Total 250 ml # Voids 7 # Bowel Movements 2 General Appearance: Alert, Oriented X3, Cooperative, No acute distress, mild distress HEENT: Atraumatic, PERRLA Lungs: Other (Decreased breath sounds in the base.) Cardiovascular: Normal S1, Normal S2 Abdomen: Normal bowel sounds, Soft Musculoskeletal: Normal sensory function, Normal motor function Skin: Dry, Intact Psych/Mental Status: Mental status NL, Mood NL Medications Current Medications Medications Dose Ordered Sig/Edouard Route Start Time Stop Time Status Last Admin Dose Admin Ceftriaxone Sodium 50 ml @ 100 mls/hr DAILY IV 08/06/24 16:30 08/10/24 08:25 100 MLS/HR Albuterol 2.5 mg Q6H NEB 08/06/24 18:00 08/10/24 11:46 2.5 MG Sodium Chloride 10 ml Q8HR IV 08/06/24 22:00 08/10/24 05:24 10 ML Docusate Sodium 100 mg BIDPRN PRN PO 08/06/24 16:45 Acetaminophen 650 mg Q6HP PRN PO 08/06/24 16:45 08/09/24 20:20 650 MG Acetaminophen/ Hydrocodone Bitart 1 tab Q4HP PRN PO 08/06/24 16:45 Ondansetron HCl 4 mg Q4HP PRN IV 08/06/24 16:45 Doxycycline Hyclate 100 ml @ 50 mls/hr Q12H IV 08/06/24 17:30 08/10/24 05:15 50 MLS/HR Enoxaparin Sodium 90 mg Q12HR SC 08/08/24 22:00 08/10/24 08:26 90 MG Laboratory Results Laboratory Tests 08/09/24 07:31 Urinalysis Test 08/06/24 19:30 Urine Color Yellow (Yellow) Urine Clarity Clear (Clear) Urine pH 6.0 (5.0-9.0) Urine Specific [place] > 1.050 (1.001-1.035) Urine Protein 1+ (Negative) H Urine Ketones Negative (Negative) Urine Blood Negative /uL (Negative) Urine Nitrite Negative (Negative) Urine Bilirubin Negative (Negative) Urine Urobilinogen Normal mg/dL (Negative) Urine Leukocyte Esterase Negative /uL (Negative) Urine RBC 9 /hpf (0 - 4) Urine Microscopic WBC 4 /HPF (0-5) Urine Squamous Epithelial Cells Few /hpf (<5) Urine Bacteria None seen /hpf (None Seen) Urine Mucus Few (None Seen) Urine Glucose Normal mg/dL (Normal) Microbiology Microbiology Date/Time Source Procedure Growth Status 08/07/24 13:08 Pleural Fluid Gram Stain - Final Resulted 08/07/24 13:08 Pleural Fluid Aerobic Culture - Preliminary Resulted 08/06/24 18:18 Blood Blood Culture - Preliminary NO GROWTH AFTER 72 HOURS OF INCUBATION. Resulted Labs and/or images reviewed: Labs reviewed by me, Image(s) reviewed by me Assessment/Plan Assessment/Plan Impression: -acute hypoxic respiratory failure -bilateral pulmonary embolisms -left pleural effusion -history of breast cancer, 10 years ago -degenerative joint disease -rule out DVT -dyslipidemia Plan: Events: Discussed pathology report of pleural fluid with noted malignant cells. Pathologist requested additional pleural fluid if patient has recurrent effusion. Repeat CT scan of chest, abdomen, pelvis with positive reoccurrence of effusion. IR consultation placed. -O2 supplementation to keep saturation greater than 92% -continue anticoagulation with Lovenox -pain management -echocardiogram: Pending -check tumor markers: Reviewed -findings of pathology report discussed with the patient. Patient agreeable for CT scan. Total time spent with patient discussing and formulating plan of care: 35 minutes. This medical document was created using an electronic medical record system with [employer] system. Although this document has been carefully reviewed, there may still be some phonetic and typographical errors. These areas are purely typographical due to imperfections of the software programs, and do not reflect any compromise in the patient's medical care. Plan discussed with: Patient, Other (RN) My Orders Orders - VICENTE MARQUIS TELECOMMUNICATIONS CONSULTANT Procedure Category Date Status Time Ct Chest/Ab/Pl W Con- CT 08/10/24 Taken Iv Only 11:12 Sodium Chloride 0.9% PHA 08/10/24 In Process 11:15 Complete Blood Count LAB 08/11/24 Verified 04:00 Comprehensive LAB 08/11/24 Verified Metabolic Panel 04:00 * Radiologist Consult CONS 08/10/24 Transmitted 12:33 Date of Service: August 10, 2024 Billing Provider: VICENTE MARQUIS NP Common Visit Codes: [id number] INP/OBS CARE(HIGH) VICENTE MARQUIS NP August 10, 2024 12:37
--- NOTE | 2024-08-10 13:20 | DVH ---
Exam: CT CT CHEST/AB/PL W CON- IV ONLY History: rule out pleural effusion, check for metastatic ca Comparison Study: CTA chest dated 08/06/2024 Technique: Multidetector spiral CT of the chest, abdomen and pelvis was performed from lower neck to pubic symphysis. Intravenous contrast was administered during this examination. Portal venous imagi ng was obtained. Axial, coronal and sagittal multiplanar reformats were performed by the technologist on a separate workstation. Radiation Dose : 1. Chest/Abdomen/Pelvis: CTDIvol 28.09 mGy, DLP 1791.33 mGy*cm. Findings: Lower neck: Normal thyroid. Lungs: No focal consolidation, pleural effusion or pneumothorax. Heart/Vascular Structures: Normal heart size. No pericardial effusion. Redemonstration of pulmonary e mbolism in the right main pulmonary artery (suboptimally evaluated). Lymph Nodes: No adenopathy Pleura: Moderate left pleural effusion. Pleural thickening is present in the left hemithorax measurin g up to 4.9 cm in the posteromedial left lower lung. Liver: The liver is normal in size. No focal lesions. Normal hepatic vascular enhancement. Gallbladder and Biliary Tree: Unremarkable Spleen: Unremarkable Pancreas: The pancreas is normal in appearance without focal lesions or abnormal enhancement. Adrenal Glands: Unremarkable Kidneys: Kidneys demonstrate normal symmetric enhancement without focal lesions, calculi or hydroneph rosis. Right upper pole renal cyst. Bladder: Unremarkable Bowel: The stomach is grossly normal in appearance. Small bowel and colon are normal in caliber and d istribution. The appendix is not visualized; however, no secondary findings of acute appendicitis sunita ntified. Ascites: Absent Lymphadenopathy: No mesenteric, retroperitoneal or periportal lymphadenopathy. Abdominal Wall and Mesentery: Unremarkable. Vasculature: The visualized abdominal aorta is normal in size and caliber. Abdominal and pelvic vess els demonstrate normal enhancement. Pelvic Organs: The uterus is surgically absent. Musculoskeletal: No aggressive focal bony lesions, acute fractures or dislocation. Degenerative foster es of the spine. IMPRESSION: Masslike pleural thickening in the posteromedial left lower hemithorax measuring 4.9 cm. This is susp icious for neoplasm. Moderate left pleural effusion. No acute or suspicious finding in the abdomen or pelvis.
--- NOTE | 2024-08-10 15:02 | DVH ---
XY CHEST PORTABLE, HISTORY: POST THORACENTESIS COMPARISON: XY CHEST PORTABLE on DOS: 08/07/24, XY CHEST XRAY 1 VIEW on DOS: 08/06/24 XY CHEST PORTABLE on DOS: 08/07/24, XY CHEST XRAY 1 VIEW on DOS: 08/06/24 TECHNICAL DATA: 1 view of the chest was obtained. FINDINGS: Lines and tubes: None Cardiomediastinal silhouette: normal Pulmonary vasculature: normal Lung expansion: normal Lung airspace: normal Lung interstitium: normal Pleura: Decreased left pleural effusion Pneumothorax: no Bones: Unremarkable Other: no IMPRESSION: No pneumothorax and decreased left pleural effusion.
--- NOTE | 2024-08-10 15:03 | DVH ---
US THORACENTESIS, HISTORY: PLEURAL EFFUSION DIAGONOSTIC PROCEDURE: Informed consent was obtained. The patient was seated on the bed. A limited localization u ltrasound of the left thorax was obtained, and the optimal approach was marked on the skin. The area was prepped with chlorhexidine which was allowed to dry and draped in the usual sterile fashion. Time out was performed. The skin and the soft tissues were infiltrated with 1% lidocaine. A 5.5 Vincentian ce ntesis needle catheter was advanced into left pleural space. Following aspiration of fluid, the demian ter was advanced and the needle removed. About 1100 cc of fluid was drained. Specimen/s was/were sent for appropriate cultures/cytology/cultures and cytology. No immediate complication was identified. FINDINGS: Moderate left pleural effusion. Aspirated fluid is serosanguinous. IMPRESSION: Left thoracentesis with 1.1L removed.
[2024-08-10 17:03] LABS: Platelet Count (auto) 295 10^3/uL (140-450)
[2024-08-10 18:00] LABS: Body Fluid Red Blood Cells 1544836 CUMM (0-2000); Body Fluid White Blood Cells 3688 CUMM (0-200)
[2024-08-10 18:31] LABS: Eosinophils % (manual) 1 (0-7); Lymphocytes % (manual) 15 (10.0-50.0); Monocytes % (manual) 7 (0-12)
[2024-08-10 18:32] LABS: Platelet Estimate Adequate
[2024-08-11] VITALS (9 sets, daily range): BP systolic 115–148; BP diastolic 59–74; PULSE 80–106; RESP 16–18; TEMP 97.7–99; O2SAT 96–99
[2024-08-11] MEDS: IOHEXOL 300 MG/ML 100ML BOTTLE IJ ONE (08:01)
[2024-08-11 08:04] LABS: Basophils # (auto) 0 10 ^3/uL (0-0.2); Basophils % (auto) 0.3 % (0.0-2.0); Eosinophils # (auto) 0.1 10 ^3/uL (0-0.8); Hematocrit 27.2 % (36.0-46.0); Hemoglobin 9.2 g/dL (12.2-16.2); Lymphocytes # (auto) 1.9 10 ^3/uL (0.4-5.4); Lymphocytes % (auto) 19.7 % (10.0-50.0); Mean Corpuscular Hemoglobin 29.3 pg (28.0-32.0); Mean Corpuscular Hgb Conc. 33.9 g/dL (32.0-36.0); Mean Corpuscular Volume 86.2 fL (80.0-100.0); Monocytes # (auto) 0.5 10 ^3/uL (0-1.3); Monocytes % (auto) 5.1 % (0.0-12.0); Neutrophils # (auto) 7.2 10 ^3/uL (1.6-8.6); Neutrophils % (auto) 73.9 % (37.0-80.0); Nucleated Red Blood Cells % 0.1 %; Platelet Count (auto) 290 10^3/uL (140-450); Red Blood Cells 3.15 10^6/uL (4.0-5.20); Red Cell Distribution Width 14.6 % (11.8-14.3); White Blood Cell 9.8 10^3/uL (4.4-10.8)
[2024-08-11 08:14] LABS: Alanine Aminotransferase 32 U/L (7-40); Albumin 3.6 g/dL (3.2-4.8); Anion Gap 8 (5-15); Aspartate Aminotransferase 24 U/L (13-40); BUN/Creatinine Ratio 20.7 (10.0-20.0); Bilirubin, Total 0.4 mg/dL (0.2-1.0); Blood Urea Nitrogen 12 mg/dL (9-23); Calcium 9.1 mg/dL (8.7-10.4); Carbon Dioxide 24 mmol/L (20-31); Chloride 107 mmol/L (98-107); Glucose 101 mg/dL (74-106); Potassium 3.6 mmol/L (3.5-5.1); Sodium 139 mmol/L (136-145); Total Protein 5.8 g/dL (5.7-8.2)
[2024-08-11 08:16] LABS: Alkaline Phosphatase 116 U/L (46-116)
--- NOTE | 2024-08-11 12:46 | DVHPN2 ---
Subjective Patient continues to report having shortness of breath. Reviewed: Care Plan, H&P, Labs, Medications, Previous Orders Changes from previous H/P or p: No Changes General: Per HPI Objective Vitals Vital Signs Date Time Temp Pulse Resp B/P (MAP) Pulse Ox O2 Delivery O2 Flow Rate FiO2 08/11/24 10:00 97 Nasal Cannula* 3 32 08/11/24 09:00 98.6 88 16 122/59 (80) 98.6 Intake/Output Intake and Output 08/11/24 07:00 Intake Total 1538 ml Output Total 502 ml Balance 1036 ml Intake Oral 1388 ml IV Total 150 ml Output Urine Total 500 ml Stool Total 2 ml # Voids 6 General Appearance: Alert, Oriented X3, Cooperative, No acute distress, mild distress HEENT: Atraumatic, PERRLA Lungs: Other (Decreased breath sounds in the base.) Cardiovascular: Normal S1, Normal S2 Abdomen: Normal bowel sounds, Soft Musculoskeletal: Normal sensory function, Normal motor function Skin: Dry, Intact Psych/Mental Status: Mental status NL, Mood NL Medications Current Medications Medications Dose Ordered Sig/Edouard Route Start Time Stop Time Status Last Admin Dose Admin Ceftriaxone Sodium 50 ml @ 100 mls/hr DAILY IV 08/06/24 16:30 08/11/24 09:59 100 MLS/HR Sodium Chloride 10 ml Q8HR IV 08/06/24 22:00 08/11/24 05:38 10 ML Docusate Sodium 100 mg BIDPRN PRN PO 08/06/24 16:45 Acetaminophen 650 mg Q6HP PRN PO 08/06/24 16:45 08/10/24 17:37 650 MG Acetaminophen/ Hydrocodone Bitart 1 tab Q4HP PRN PO 08/06/24 16:45 Ondansetron HCl 4 mg Q4HP PRN IV 08/06/24 16:45 Doxycycline Hyclate 100 ml @ 50 mls/hr Q12H IV 08/06/24 17:30 08/11/24 05:38 50 MLS/HR Enoxaparin Sodium 90 mg Q12HR SC 08/08/24 22:00 08/11/24 09:59 90 MG Laboratory Results Laboratory Tests 08/11/24 06:39 Chemistry Test 08/11/24 06:39 Albumin 3.6 g/dL (3.2-4.8) Calcium Level 9.1 mg/dL (8.7-10.4) Total Protein 5.8 g/dL (5.7-8.2) LFT Test 08/11/24 06:39 Alanine Aminotransferase (ALT) 32 U/L (7-40) Alkaline Phosphatase 116 U/L (46-116) Aspartate Amino Transferase (AST) 24 U/L (13-40) Total Bilirubin 0.4 mg/dL (0.2-1.0) Urinalysis Test 08/06/24 19:30 Urine Color Yellow (Yellow) Urine Clarity Clear (Clear) Urine pH 6.0 (5.0-9.0) Urine Specific [place] > 1.050 (1.001-1.035) Urine Protein 1+ (Negative) H Urine Ketones Negative (Negative) Urine Blood Negative /uL (Negative) Urine Nitrite Negative (Negative) Urine Bilirubin Negative (Negative) Urine Urobilinogen Normal mg/dL (Negative) Urine Leukocyte Esterase Negative /uL (Negative) Urine RBC 9 /hpf (0 - 4) Urine Microscopic WBC 4 /HPF (0-5) Urine Squamous Epithelial Cells Few /hpf (<5) Urine Bacteria None seen /hpf (None Seen) Urine Mucus Few (None Seen) Urine Glucose Normal mg/dL (Normal) Microbiology Microbiology Date/Time Source Procedure Growth Status 08/10/24 14:45 Pleural Fluid Gram Stain Pending Resulted 08/10/24 14:45 Pleural Fluid Aerobic Culture - Preliminary Resulted 08/06/24 18:18 Blood Blood Culture - Preliminary NO GROWTH AFTER 72 HOURS OF INCUBATION. Resulted Labs and/or images reviewed: Labs reviewed by me, Image(s) reviewed by me Assessment/Plan Assessment/Plan Impression: -acute hypoxic respiratory failure -bilateral pulmonary embolisms -left pleural effusion -history of breast cancer, 10 years ago -degenerative joint disease -rule out DVT -dyslipidemia -pulmonary hypertension -rule out malignancy Plan: Events: Repeat pleural effusion noted on a CT scan with questionable lung neoplasm. Patient had repeat thoracentesis with 1 L removed, sent to pathology. -O2 supplementation to keep saturation greater than 92% -continue anticoagulation with Lovenox -pain management -echocardiogram: Reviewed -check tumor markers: Reviewed -repeat chest x-ray in a.m. Total time spent with patient discussing and formulating plan of care: 35 minutes. This medical document was created using an electronic medical record system with [employer] computerized dictation system. Although this document has been carefully reviewed, there may still be some phonetic and typographical errors. These areas are purely typographical due to imperfections of the software programs, and do not reflect any compromise in the patient's medical care. Plan discussed with: Patient, Other (RN) My Orders Orders - VICENTE MARQUIS NP Procedure Category Date Status Time Thoracentesis US 08/10/24 Resulted 12:55 Date of Service: August 11, 2024 Billing Provider: VICENTE MARQUIS NP Common Visit Codes: [id number] INP/OBS CARE(HIGH) VICENTE MARQUIS NP August 11, 2024 12:46
[2024-08-12] VITALS (10 sets, daily range): BP systolic 120–158; BP diastolic 51–78; PULSE 79–102; RESP 16–20; TEMP 97.8–99.2; O2SAT 96–99
[2024-08-12] MEDS: MAALOX PLUS or MAALOX 30 ML PO PRN (04:48)
--- NOTE | 2024-08-12 09:14 | DVH ---
CHEST RADIOGRAPH Indication: evaluate pleural effusion Technique: Single frontal view of the chest was obtained COMPARISON: 08/10/2024 FINDINGS: The cardiac silhouette is enlarged. The lungs demonstrate bilateral patchy airspace opacities, most p ronounced in the left perihilar and left mid lung region. The pulmonary vasculature is prominent. Mod erate left pleural effusion, increased from prior. There is no pneumothorax. Cervical fusion hardware . Postsurgical changes left axilla. IMPRESSION: 1. As above. Follow-up to resolution, especially for the left hilar airspace opacification.
--- NOTE | 2024-08-12 13:46 | DVHPN2 ---
Subjective Patient reports improvement with shortness of breaths. Reviewed: Care Plan, H&P, Labs, Medications, Previous Orders Changes from previous H/P or p: Changes General: Per HPI Objective Vitals Vital Signs Date Time Temp Pulse Resp B/P (MAP) Pulse Ox O2 Delivery O2 Flow Rate FiO2 08/12/24 10:00 99 Nasal Cannula 3.0 08/12/24 10:00 32 08/12/24 09:00 99.2 87 16 154/64 (94) 99.2 Intake/Output Intake and Output 08/12/24 07:00 Intake Total 1550 ml Output Total 800 ml Balance 750 ml Intake Oral 1300 ml IV Total 250 ml Output Urine Total 800 ml # Voids 4 # Bowel Movements 2 General Appearance: Alert, Oriented X3, Cooperative, No acute distress, mild distress HEENT: Atraumatic, PERRLA Lungs: Other (Decreased breath sounds in the base.) Cardiovascular: Normal S1, Normal S2 Abdomen: Normal bowel sounds, Soft Musculoskeletal: Normal sensory function, Normal motor function Skin: Dry, Intact Psych/Mental Status: Mental status NL, Mood NL Medications Current Medications Medications Dose Ordered Sig/Edouard Route Start Time Stop Time Status Last Admin Dose Admin Ceftriaxone Sodium 50 ml @ 100 mls/hr DAILY IV 08/06/24 16:30 08/12/24 10:00 100 MLS/HR Sodium Chloride 10 ml Q8HR IV 08/06/24 22:00 08/12/24 05:40 10 ML Docusate Sodium 100 mg BIDPRN PRN PO 08/06/24 16:45 Acetaminophen 650 mg Q6HP PRN PO 08/06/24 16:45 08/11/24 19:53 650 MG Acetaminophen/ Hydrocodone Bitart 1 tab Q4HP PRN PO 08/06/24 16:45 Ondansetron HCl 4 mg Q4HP PRN IV 08/06/24 16:45 Doxycycline Hyclate 100 ml @ 50 mls/hr Q12H IV 08/06/24 17:30 08/12/24 05:47 50 MLS/HR Enoxaparin Sodium 90 mg Q12HR SC 08/08/24 22:00 08/12/24 10:00 90 MG Al Hydrox/Mg Hydrox/Simethicone 30 ml Q8HPRN PRN PO 08/12/24 04:45 08/12/24 04:48 30 ML Laboratory Results Laboratory Tests 08/11/24 06:39 Urinalysis Test 08/06/24 19:30 Urine Color Yellow (Yellow) Urine Clarity Clear (Clear) Urine pH 6.0 (5.0-9.0) Urine Specific [place] > 1.050 (1.001-1.035) Urine Protein 1+ (Negative) H Urine Ketones Negative (Negative) Urine Blood Negative /uL (Negative) Urine Nitrite Negative (Negative) Urine Bilirubin Negative (Negative) Urine Urobilinogen Normal mg/dL (Negative) Urine Leukocyte Esterase Negative /uL (Negative) Urine RBC 9 /hpf (0 - 4) Urine Microscopic WBC 4 /HPF (0-5) Urine Squamous Epithelial Cells Few /hpf (<5) Urine Bacteria None seen /hpf (None Seen) Urine Mucus Few (None Seen) Urine Glucose Normal mg/dL (Normal) Microbiology Microbiology Date/Time Source Procedure Growth Status 08/10/24 14:45 Pleural Fluid Gram Stain - Final Resulted 08/10/24 14:45 Pleural Fluid Aerobic Culture - Preliminary Resulted 08/06/24 18:18 Blood Blood Culture - Final NO GROWTH AFTER 5 DAYS OF INCUBATION. Complete Labs and/or images reviewed: Labs reviewed by me, Image(s) reviewed by me Assessment/Plan Assessment/Plan Impression: -acute hypoxic respiratory failure -bilateral pulmonary embolisms -left pleural effusion -history of breast cancer, 10 years ago -degenerative joint disease -rule out DVT -dyslipidemia -pulmonary hypertension -rule out malignancy Plan: Events: Currently on nasal cannula at 4 L/min. No events overnight. -bone scan -midline placement -O2 supplementation to keep saturation greater than 92% -continue anticoagulation with Lovenox -pain management -echocardiogram: Reviewed -check tumor markers: Reviewed Total time spent with patient discussing and formulating plan of care: 35 minutes. This medical document was created using an electronic medical record system with [employer] dictation system. Although this document has been carefully reviewed, there may still be some phonetic and typographical errors. These areas are purely typographical due to imperfections of the software programs, and do not reflect any compromise in the patient's medical care. Plan discussed with: Patient, Other (RN) My Orders Orders - VICENTE MARQUIS NP Procedure Category Date Status Time Basic Metabolic Panel LAB 08/13/24 Verified 04:00 Complete Blood Count LAB 08/13/24 Verified 04:00 Insert Midline ORDERS 08/12/24 Transmitted 12:48 Date of Service: Aug 12, 2024 Billing Provider: VICENTE MARQUIS NP Common Visit Codes: [id number] INP/OBS CARE(HIGH) VICENTE MARQUIS NP Aug 12, 2024 13:46
[2024-08-13] VITALS (9 sets, daily range): BP systolic 105–137; BP diastolic 56–71; PULSE 71–100; RESP 18–19; TEMP 97.2–98.6; O2SAT 92–99
[2024-08-13 07:40] LABS: Basophils # (auto) 0 10 ^3/uL (0-0.2); Basophils % (auto) 0.2 % (0.0-2.0); Eosinophils # (auto) 0.1 10 ^3/uL (0-0.8); Eosinophils % (auto) 1.2 % (0.0-7.0); Hematocrit 26.1 % (36.0-46.0); Hemoglobin 8.6 g/dL (12.2-16.2); Lymphocytes # (auto) 1.4 10 ^3/uL (0.4-5.4); Lymphocytes % (auto) 17.6 % (10.0-50.0); Mean Corpuscular Hemoglobin 28.9 pg (28.0-32.0); Mean Corpuscular Hgb Conc. 33.1 g/dL (32.0-36.0); Mean Corpuscular Volume 87.5 fL (80.0-100.0); Monocytes # (auto) 0.6 10 ^3/uL (0-1.3); Monocytes % (auto) 7.4 % (0.0-12.0); Neutrophils # (auto) 5.8 10 ^3/uL (1.6-8.6); Neutrophils % (auto) 73.6 % (37.0-80.0); Nucleated Red Blood Cells % 0.1 %; Platelet Count (auto) 359 10^3/uL (140-450); Red Blood Cells 2.99 10^6/uL (4.0-5.20); Red Cell Distribution Width 14.7 % (11.8-14.3); White Blood Cell 7.8 10^3/uL (4.4-10.8)
[2024-08-13 07:54] LABS: Anion Gap 7 (5-15); Carbon Dioxide 25 mmol/L (20-31); Chloride 104 mmol/L (98-107); Sodium 136 mmol/L (136-145)
[2024-08-13 07:55] LABS: Calcium 8.7 mg/dL (8.7-10.4)
[2024-08-13 08:00] LABS: BUN/Creatinine Ratio 13.2 (10.0-20.0); Blood Urea Nitrogen 7 mg/dL (9-23); Glucose 169 mg/dL (74-106)
[2024-08-13] MEDS: POTASSIUM EFFERVESENT TAB 25 MEQ PO ONE (13:15)
[2024-08-13 13:17] LABS: Basophils # (auto) 0 10 ^3/uL (0-0.2); Eosinophils # (auto) 0 10 ^3/uL (0-0.8); Eosinophils % (auto) 0.5 % (0.0-7.0); Lymphocytes # (auto) 1.8 10 ^3/uL (0.4-5.4); Monocytes # (auto) 0.4 10 ^3/uL (0-1.3); Nucleated Red Blood Cells % 0.1 %
[2024-08-13 13:18] LABS: Basophils % (auto) 0.3 % (0.0-2.0); Hematocrit 24.9 % (36.0-46.0); Hemoglobin 8.4 g/dL (12.2-16.2); Lymphocytes % (auto) 22.9 % (10.0-50.0); Mean Corpuscular Hemoglobin 29.8 pg (28.0-32.0); Mean Corpuscular Hgb Conc. 33.7 g/dL (32.0-36.0); Mean Corpuscular Volume 88.3 fL (80.0-100.0); Monocytes % (auto) 5.2 % (0.0-12.0); Neutrophils # (auto) 5.6 10 ^3/uL (1.6-8.6); Neutrophils % (auto) 71.1 % (37.0-80.0); Platelet Count (auto) 341 10^3/uL (140-450); Red Blood Cells 2.82 10^6/uL (4.0-5.20); White Blood Cell 7.9 10^3/uL (4.4-10.8)
--- NOTE | 2024-08-13 13:56 | DVHPN2 ---
Subjective Patient reports improvement with shortness of breaths. Reviewed: Care Plan, H&P, Labs, Medications, Previous Orders Changes from previous H/P or p: No Changes General: Per HPI Objective Vitals Vital Signs Date Time Temp Pulse Resp B/P (MAP) Pulse Ox O2 Delivery O2 Flow Rate FiO2 08/13/24 13:00 98.2 71 18 105/62 (76) 97 98.2 08/13/24 10:00 Nasal Cannula* 3 32 Intake/Output Intake and Output 08/13/24 07:00 Intake Total 1150 ml Balance 1150 ml Intake Oral 900 ml IV Total 250 ml # Voids 6 # Bowel Movements 1 General Appearance: Alert, Oriented X3, Cooperative, No acute distress, mild distress HEENT: Atraumatic, PERRLA Lungs: Other (Decreased breath sounds in the base.) Cardiovascular: Normal S1, Normal S2 Abdomen: Normal bowel sounds, Soft Musculoskeletal: Normal sensory function, Normal motor function Skin: Dry, Intact Psych/Mental Status: Mental status NL, Mood NL Medications Current Medications Medications Dose Ordered Sig/Edouard Route Start Time Stop Time Status Last Admin Dose Admin Ceftriaxone Sodium 50 ml @ 100 mls/hr DAILY IV 08/06/24 16:30 08/13/24 11:05 100 MLS/HR Sodium Chloride 10 ml Q8HR IV 08/06/24 22:00 08/13/24 13:16 10 ML Docusate Sodium 100 mg BIDPRN PRN PO 08/06/24 16:45 Acetaminophen 650 mg Q6HP PRN PO 08/06/24 16:45 08/13/24 11:06 650 MG Acetaminophen/ Hydrocodone Bitart 1 tab Q4HP PRN PO 08/06/24 16:45 Ondansetron HCl 4 mg Q4HP PRN IV 08/06/24 16:45 Doxycycline Hyclate 100 ml @ 50 mls/hr Q12H IV 08/06/24 17:30 08/13/24 05:34 50 MLS/HR Enoxaparin Sodium 90 mg Q12HR SC 08/08/24 22:00 08/13/24 11:06 90 MG Al Hydrox/Mg Hydrox/Simethicone 30 ml Q8HPRN PRN PO 08/12/24 04:45 08/12/24 04:48 30 ML Amlodipine Besylate 10 mg DAILY PO 08/14/24 10:00 Pantoprazole Sodium 40 mg DAILY@0600 PO 08/14/24 06:00 Laboratory Results Laboratory Tests 08/13/24 06:09 08/13/24 13:00 Chemistry Test 08/13/24 06:09 Calcium Level 8.7 mg/dL (8.7-10.4) Urinalysis Test 08/06/24 19:30 Urine Color Yellow (Yellow) Urine Clarity Clear (Clear) Urine pH 6.0 (5.0-9.0) Urine Specific [place] > 1.050 (1.001-1.035) Urine Protein 1+ (Negative) H Urine Ketones Negative (Negative) Urine Blood Negative /uL (Negative) Urine Nitrite Negative (Negative) Urine Bilirubin Negative (Negative) Urine Urobilinogen Normal mg/dL (Negative) Urine Leukocyte Esterase Negative /uL (Negative) Urine RBC 9 /hpf (0 - 4) Urine Microscopic WBC 4 /HPF (0-5) Urine Squamous Epithelial Cells Few /hpf (<5) Urine Bacteria None seen /hpf (None Seen) Urine Mucus Few (None Seen) Urine Glucose Normal mg/dL (Normal) Microbiology Microbiology Date/Time Source Procedure Growth Status 08/10/24 14:45 Pleural Fluid Gram Stain - Final Resulted 08/10/24 14:45 Pleural Fluid Aerobic Culture - Preliminary Resulted 08/06/24 18:18 Blood Blood Culture - Final NO GROWTH AFTER 5 DAYS OF INCUBATION. Complete Labs and/or images reviewed: Labs reviewed by me, Image(s) reviewed by me Assessment/Plan Assessment/Plan Impression: -acute hypoxic respiratory failure -bilateral pulmonary embolisms -left pleural effusion -history of breast cancer, 10 years ago -degenerative joint disease -rule out DVT -dyslipidemia -pulmonary hypertension -rule out malignancy -primary hypertension Plan: Events: Currently on nasal cannula at 3 L/min. -bone scan -midline placement -O2 supplementation to keep saturation greater than 92% -continue anticoagulation with Lovenox -pain management -echocardiogram: Reviewed -check tumor markers: Reviewed Total time spent with patient discussing and formulating plan of care: 35 minutes. This medical document was created using an electronic medical record system with [employer] system. Although this document has been carefully reviewed, there may still be some phonetic and typographical errors. These areas are purely typographical due to imperfections of the software programs, and do not reflect any compromise in the patient's medical care. Plan discussed with: Patient, Other My Orders Orders - VICENTE MARQUIS NP Procedure Category Date Status Time Basic Metabolic Panel LAB 08/14/24 Verified 04:00 Magnesium LAB 08/14/24 Verified 04:00 Amlodipine Tablet PHA 08/14/24 In Process (Norvasc Tablet) 10:00 Pantoprazole Tablet PHA 08/14/24 In Process (Protonix Tablet) 06:00 Date of Service: Aug 13, 2024 Billing Provider: VICENTE MARQUIS NP Common Visit Codes: [id number] INP/OBS CARE(HIGH) VICENTE MARQUIS NP Aug 13, 2024 13:56
[2024-08-14] VITALS (8 sets, daily range): BP systolic 129–160; BP diastolic 54–67; PULSE 78–95; RESP 18–19; TEMP 97.9–99.5; O2SAT 91–99
[2024-08-14] MEDS: PANTOPRAZOLE 40 MG TAB PO SCH (06:15)
[2024-08-14 07:18] LABS: Chloride 101 mmol/L (98-107); Sodium 137 mmol/L (136-145)
[2024-08-14 07:19] LABS: Anion Gap 9 (5-15); Carbon Dioxide 27 mmol/L (20-31)
[2024-08-14 07:24] LABS: BUN/Creatinine Ratio 13.5 (10.0-20.0)
[2024-08-14 07:25] LABS: Magnesium 1.8 mg/dL (1.6-2.6)
[2024-08-14 07:28] LABS: Blood Urea Nitrogen 7 mg/dL (9-23); Calcium 8.4 mg/dL (8.7-10.4); Glucose 138 mg/dL (74-106); Potassium 3.2 mmol/L (3.5-5.1)
[2024-08-14] MEDS: amLODIPine BESYLATE 5 MG TAB PO SCH (09:53)
--- NOTE | 2024-08-14 10:26 | DVHPN2 ---
Subjective Patient reports improvement with shortness of breaths. Reviewed: Care Plan, H&P, Labs, Medications, Previous Orders Changes from previous H/P or p: No Changes General: Per HPI Objective Vitals Vital Signs Date Time Temp Pulse Resp B/P (MAP) Pulse Ox O2 Delivery O2 Flow Rate FiO2 08/14/24 09:53 165/66 08/14/24 09:00 98.1 79 18 98 98.1 08/13/24 20:00 Nasal Cannula* 3 32 Intake/Output Intake and Output 08/14/24 07:00 Intake Total 1650 ml Balance 1650 ml Intake Oral 1400 ml IV Total 250 ml # Voids 8 # Bowel Movements 2 General Appearance: Alert, Oriented X3, Cooperative, No acute distress, mild distress HEENT: Atraumatic, PERRLA Lungs: Other (Decreased breath sounds in the base.) Cardiovascular: Normal S1, Normal S2 Abdomen: Normal bowel sounds, Soft Musculoskeletal: Normal sensory function, Normal motor function Skin: Dry, Intact Psych/Mental Status: Mental status NL, Mood NL Medications Current Medications Medications Dose Ordered Sig/Edouard Route Start Time Stop Time Status Last Admin Dose Admin Ceftriaxone Sodium 50 ml @ 100 mls/hr DAILY IV 08/06/24 16:30 08/14/24 09:52 100 MLS/HR Sodium Chloride 10 ml Q8HR IV 08/06/24 22:00 08/14/24 06:14 10 ML Docusate Sodium 100 mg BIDPRN PRN PO 08/06/24 16:45 Acetaminophen 650 mg Q6HP PRN PO 08/06/24 16:45 08/13/24 11:06 650 MG Acetaminophen/ Hydrocodone Bitart 1 tab Q4HP PRN PO 08/06/24 16:45 Ondansetron HCl 4 mg Q4HP PRN IV 08/06/24 16:45 Doxycycline Hyclate 100 ml @ 50 mls/hr Q12H IV 08/06/24 17:30 08/14/24 06:14 50 MLS/HR Enoxaparin Sodium 90 mg Q12HR SC 08/08/24 22:00 08/14/24 09:53 90 MG Al Hydrox/Mg Hydrox/Simethicone 30 ml Q8HPRN PRN PO 08/12/24 04:45 08/12/24 04:48 30 ML Amlodipine Besylate 10 mg DAILY PO 08/14/24 10:00 08/14/24 09:53 10 MG Pantoprazole Sodium 40 mg DAILY@0600 PO 08/14/24 06:00 08/14/24 06:15 40 MG Laboratory Results Laboratory Tests 08/13/24 13:00 08/14/24 06:53 Chemistry Test 08/14/24 06:53 Calcium Level 8.4 mg/dL (8.7-10.4) L Magnesium Level 1.8 mg/dL (1.6-2.6) Urinalysis Test 08/06/24 19:30 Urine Color Yellow (Yellow) Urine Clarity Clear (Clear) Urine pH 6.0 (5.0-9.0) Urine Specific [place] > 1.050 (1.001-1.035) Urine Protein 1+ (Negative) H Urine Ketones Negative (Negative) Urine Blood Negative /uL (Negative) Urine Nitrite Negative (Negative) Urine Bilirubin Negative (Negative) Urine Urobilinogen Normal mg/dL (Negative) Urine Leukocyte Esterase Negative /uL (Negative) Urine RBC 9 /hpf (0 - 4) Urine Microscopic WBC 4 /HPF (0-5) Urine Squamous Epithelial Cells Few /hpf (<5) Urine Bacteria None seen /hpf (None Seen) Urine Mucus Few (None Seen) Urine Glucose Normal mg/dL (Normal) Microbiology Microbiology Date/Time Source Procedure Growth Status 08/10/24 14:45 Pleural Fluid Gram Stain - Final Resulted 08/10/24 14:45 Pleural Fluid Aerobic Culture - Preliminary Resulted 08/06/24 18:18 Blood Blood Culture - Final NO GROWTH AFTER 5 DAYS OF INCUBATION. Complete Labs and/or images reviewed: Labs reviewed by me, Image(s) reviewed by me Assessment/Plan Assessment/Plan Impression: -acute hypoxic respiratory failure -bilateral pulmonary embolisms -left pleural effusion -history of breast cancer, 10 years ago -degenerative joint disease -rule out DVT -dyslipidemia -pulmonary hypertension -rule out malignancy -primary hypertension Plan: Events: Pending bone scan today. Midline has been placed. Continues to be hypokalemic. Potassium replacement. Plans to change anticoagulation to Eliquis once pathology report has been obtained. -bone scan -O2 supplementation to keep saturation greater than 92% -continue anticoagulation with Lovenox -pain management -echocardiogram: Reviewed -check tumor markers: Reviewed Total time spent with patient discussing and formulating plan of care: 35 minutes. This medical document was created using an electronic medical record system with [employer] computerized dictation system. Although this document has been carefully reviewed, there may still be some phonetic and typographical errors. These areas are purely typographical due to imperfections of the software programs, and do not reflect any compromise in the patient's medical care. Plan discussed with: Patient, Other (RN) My Orders Orders - VICENTE MARQUIS NP Procedure Category Date Status Time Amlodipine Tablet PHA 08/14/24 In Process (Norvasc Tablet) 10:00 Pantoprazole Tablet PHA 08/14/24 In Process (Protonix Tablet) 06:00 Potassium Effervesent PHA 08/14/24 Logged Tab (Klor-Con/Ef) 10:30 Date of Service: Aug 14, 2024 Billing Provider: VICENTE MARQUIS NP Common Visit Codes: [id number] INP/OBS CARE(HIGH) VICENTE MARQUIS NP Aug 14, 2024 10:26
[2024-08-14] MEDS: POTASSIUM EFFERVESENT TAB 25 MEQ PO ONE (12:00)
--- NOTE | 2024-08-14 20:50 | DVH ---
NUCLEAR MEDICINE WHOLE BODY BONE SCAN REASON FOR EXAM: metastatic disease. Left pleural effusions and pleural thickening. COMPARISON: CT chest/abdomen/ pelvis 08/10/2024 RADIOPHARMACEUTICAL: Dose: 25 mCi [id number] AUTHORIZED USER: Dr. Julian Brady M.D. TECHNIQUE: Single-phase nuclear medicine bone scan was performed. Standard delayed anterior and post erior whole body images were acquired. Additional bilateral lateral images of the skull and cervical spine were also obtained. FINDINGS: There is expected radiotracer activity in the marrow spaces. There is also expected radiotr acer activity in the genitourinary system. There are degenerative changes at the shoulders and the st ernoclavicular joints. There is a small focus of intense radiotracer activity at the medial aspect of the proximal left tibial diaphysis. No other suspicious focus of radiotracer activity is identified . IMPRESSION: Focal uptake at proximal left tibial diaphysis. This may represent an exostosis or contamination. Ded icated radiographs of the left tibia / fibula are recommended. No other suspicious findings.
[2024-08-14] MEDS: hydrALAZINE HCL 20 MG/ML VL IV ONE (22:10)
[2024-08-15] VITALS (9 sets, daily range): BP systolic 112–168; BP diastolic 50–71; PULSE 72–97; RESP 5–96; TEMP 97.8–98.9; O2SAT 95–99
[2024-08-15 11:07] LABS: Protein, Body Fluid 4.7 g/dL (.)
--- NOTE | 2024-08-15 13:37 | DVHPN2 ---
Subjective Patient reports improvement with shortness of breaths. Reviewed: Care Plan, H&P, Labs, Medications, Previous Orders Changes from previous H/P or p: No Changes General: Per HPI Objective Vitals Vital Signs Date Time Temp Pulse Resp B/P (MAP) Pulse Ox O2 Delivery O2 Flow Rate FiO2 08/15/24 10:00 97 Nasal Cannula* 2 28 08/15/24 09:42 139/45 08/15/24 09:00 98.9 86 17 98.9 Intake/Output Intake and Output 08/15/24 07:00 Intake Total 1825 ml Balance 1825 ml Intake Oral 1575 ml IV Total 250 ml # Voids 11 # Bowel Movements 1 General Appearance: Alert, Oriented X3, Cooperative, No acute distress, mild distress HEENT: Atraumatic, PERRLA Lungs: Other (Decreased breath sounds in the base.) Cardiovascular: Normal S1, Normal S2 Abdomen: Normal bowel sounds, Soft Musculoskeletal: Normal sensory function, Normal motor function Skin: Dry, Intact Psych/Mental Status: Mental status NL, Mood NL Medications Current Medications Medications Dose Ordered Sig/Edouard Route Start Time Stop Time Status Last Admin Dose Admin Ceftriaxone Sodium 50 ml @ 100 mls/hr DAILY IV 08/06/24 16:30 08/15/24 09:41 100 MLS/HR Sodium Chloride 10 ml Q8HR IV 08/06/24 22:00 08/15/24 05:31 10 ML Docusate Sodium 100 mg BIDPRN PRN PO 08/06/24 16:45 Acetaminophen 650 mg Q6HP PRN PO 08/06/24 16:45 08/15/24 09:41 650 MG Acetaminophen/ Hydrocodone Bitart 1 tab Q4HP PRN PO 08/06/24 16:45 Ondansetron HCl 4 mg Q4HP PRN IV 08/06/24 16:45 Doxycycline Hyclate 100 ml @ 50 mls/hr Q12H IV 08/06/24 17:30 08/15/24 05:30 50 MLS/HR Enoxaparin Sodium 90 mg Q12HR SC 08/08/24 22:00 08/15/24 09:42 90 MG Al Hydrox/Mg Hydrox/Simethicone 30 ml Q8HPRN PRN PO 08/12/24 04:45 08/12/24 04:48 30 ML Amlodipine Besylate 10 mg DAILY PO 08/14/24 10:00 08/15/24 09:42 10 MG Pantoprazole Sodium 40 mg DAILY@0600 PO 08/14/24 06:00 08/15/24 05:30 40 MG Laboratory Results Laboratory Tests 08/13/24 13:00 08/14/24 06:53 Urinalysis Test 08/06/24 19:30 Urine Color Yellow (Yellow) Urine Clarity Clear (Clear) Urine pH 6.0 (5.0-9.0) Urine Specific [place] > 1.050 (1.001-1.035) Urine Protein 1+ (Negative) H Urine Ketones Negative (Negative) Urine Blood Negative /uL (Negative) Urine Nitrite Negative (Negative) Urine Bilirubin Negative (Negative) Urine Urobilinogen Normal mg/dL (Negative) Urine Leukocyte Esterase Negative /uL (Negative) Urine RBC 9 /hpf (0 - 4) Urine Microscopic WBC 4 /HPF (0-5) Urine Squamous Epithelial Cells Few /hpf (<5) Urine Bacteria None seen /hpf (None Seen) Urine Mucus Few (None Seen) Urine Glucose Normal mg/dL (Normal) Microbiology Microbiology Date/Time Source Procedure Growth Status 08/10/24 14:45 Pleural Fluid Gram Stain - Final Resulted 08/10/24 14:45 Pleural Fluid Aerobic Culture - Preliminary Resulted 08/06/24 18:18 Blood Blood Culture - Final NO GROWTH AFTER 5 DAYS OF INCUBATION. Complete Labs and/or images reviewed: Labs reviewed by me, Image(s) reviewed by me Assessment/Plan Assessment/Plan Impression: -acute hypoxic respiratory failure -bilateral pulmonary embolisms -left pleural effusion -history of breast cancer, 10 years ago -degenerative joint disease -rule out DVT -dyslipidemia -pulmonary hypertension -rule out malignancy -primary hypertension Plan: Events: Discussed bone scan with patient. No further questions. Awaiting pathology reports regarding thoracentesis. -O2 supplementation to keep saturation greater than 92% -continue anticoagulation with Lovenox -pain management -echocardiogram: Reviewed -check tumor markers: Reviewed Total time spent with patient discussing and formulating plan of care: 35 minutes. This medical document was created using an electronic medical record system with [employer] system. Although this document has been carefully reviewed, there may still be some phonetic and typographical errors. These areas are purely typographical due to imperfections of the software programs, and do not reflect any compromise in the patient's medical care. Plan discussed with: Patient, Other (RN) Date of Service: Aug 15, 2024 Billing Provider: VICENTE MARQUIS NP Common Visit Codes: [id number] INP/OBS CARE(HIGH) VICENTE MARQUIS NP Aug 15, 2024 13:37
--- NOTE | 2024-08-15 17:48 | MEDREC ---
[facility] Intervention Section I [facility] Intervention: Review courses of therapy (10 DAYS ON CEFTRIAXONE + DOXYCYCLINE FOR PNA - PLEASE CONSIDER D/C ABX IF INFECTION IS NO MORE A CONCERN) NELLY MENDEZ PHARMACIST Aug 15, 2024 17:48
--- NOTE | 2024-08-15 19:19 | DVH ---
EXAM: XY CHEST XRAY 1 VIEW Indication: assess pleural effusion Technique: Single frontal view of the chest was obtained Comparison: XY CHEST XRAY 1 VIEW on DOS: 08/12/24, XY CHEST PORTABLE on DOS: 08/10/24, XY CHEST PORTABLE on DOS: 08/07/24, XY CHEST XRAY 1 VIEW on DOS: 08/06/24 FINDINGS: Lines and Tubes: None Lungs: Left basilar opacity. Pleura: Small left pleural effusion. No pneumothorax. Cardiomediastinal contours: Cardiomegaly. Bones: No acute osseous abnormality. IMPRESSION: Small left pleural effusion and left basilar opacity.
[2024-08-15] MEDS: APIXABAN 5 MG TAB PO SCH (21:57)
[2024-08-16] VITALS (8 sets, daily range): BP systolic 149–161; BP diastolic 49–80; PULSE 71–95; RESP 15–19; TEMP 36.7; O2SAT 95–100
[2024-08-16] MEDS: cloNIDine HCL 0.1 MG TAB PO ONE (05:27)
[2024-08-16] MEDS ORDERED: APIX5TAB PO (16:04)
--- NOTE | 2024-08-16 16:10 | DVHDS2 ---
Discharge Summary Date of Admission August 06, 2024 at 16:44 Date of Discharge: Aug 16, 2024 Admitting Diagnosis Shortness of breaths secondary to left lower lobe pneumonia Labs/Diagnostic Data: Laboratory Results Test 08/15/24 16:22 08/14/24 06:53 08/13/24 13:00 08/11/24 06:39 Blood Gas Specimen Type Arterial Blood Gas Sample Site Right radial Blood Gas Patient Temperature 37.0 Arterial Blood Date Drawn [id number] Arterial Blood pH 7.539 (7.350-7.450) Arterial Blood Partial Pressure CO2 29.0 mmHg (32.0-45.0) Arterial Blood Partial Pressure O2 53.7 mmHg (83.0-108.0) Arterial Blood HCO3 24.2 mmol/L (21.0-28.0) Arterial Blood Oxygen Saturation 87.7 % (94.0-98.0) Arterial Blood Base Excess 2.0 mmol/L (-2.0-3.0) Arterial Blood Oxyhemoglobin 87.2 % (94.0-98.0) Arterial Blood Carboxyhemoglobin 0.2 % (0.5-1.5) Arterial Blood Methemoglobin 0.4 % (0.0-1.5) Eloy Test Yes Blood Gas Total Hemoglobin 9.60 g/dL (12.0-16.0) Blood Gas Modality Room air FiO2 % 21.0 Blood Gas Critical Value Read Back Yes Blood Gas Notified Whom Juanjo marquis np Blood Gas Notified Time [id number] Blood Gas Notified By Gifty carballo Sodium Level 137 mmol/L (136-145) Potassium Level 3.2 mmol/L (3.5-5.1) Chloride Level 101 mmol/L (98-107) Carbon Dioxide Level 27 mmol/L (20-31) Anion Gap 9 (5-15) Blood Urea Nitrogen 7 mg/dL (9-23) Creatinine 0.52 mg/dL (0.550-1.02) Glomerular Filtration Rate Calc 99 mL/min (>90) BUN/Creatinine Ratio 13.5 (10.0-20.0) Serum Glucose 138 mg/dL (74-106) Calcium Level 8.4 mg/dL (8.7-10.4) Magnesium Level 1.8 mg/dL (1.6-2.6) White Blood Count 7.9 10^3/uL (4.4-10.8) Red Blood Count 2.82 10^6/uL (4.0-5.20) Hemoglobin 8.4 g/dL (12.2-16.2) Hematocrit 24.9 % (36.0-46.0) Mean Corpuscular Volume 88.3 fL (80.0-100.0) Mean Corpuscular Hemoglobin 29.8 pg (28.0-32.0) Mean Corpuscular Hemoglobin Concent 33.7 g/dL (32.0-36.0) Red Cell Distribution Width 15.0 % (11.8-14.3) Platelet Count 341 10^3/uL (140-450) Mean Platelet Volume 6.4 fL (6.9-10.8) Neutrophils (%) (Auto) 71.1 % (37.0-80.0) Lymphocytes (%) (Auto) 22.9 % (10.0-50.0) Monocytes (%) (Auto) 5.2 % (0.0-12.0) Eosinophils (%) (Auto) 0.5 % (0.0-7.0) Basophils (%) (Auto) 0.3 % (0.0-2.0) Neutrophils # (Auto) 5.6 10 ^3/uL (1.6-8.6) Lymphocytes # (Auto) 1.8 10 ^3/uL (0.4-5.4) Monocytes # (Auto) 0.4 10 ^3/uL (0-1.3) Eosinophils # (Auto) 0 10 ^3/uL (0-0.8) Basophils # (Auto) 0 10 ^3/uL (0-0.2) Nucleated Red Blood Cells 0.1 % Total Bilirubin 0.4 mg/dL (0.2-1.0) Aspartate Amino Transferase (AST) 24 U/L (13-40) Alanine Aminotransferase (ALT) 32 U/L (7-40) Alkaline Phosphatase 116 U/L (46-116) Total Protein 5.8 g/dL (5.7-8.2) Albumin 3.6 g/dL (3.2-4.8) Test 08/10/24 16:15 08/10/24 14:45 08/08/24 17:06 08/08/24 12:17 Differential Total Cells Counted 100.0 (100) Neutrophils % (Manual) 77 (37.0-80.0) Band Neutrophils % (Manual) Lymphocytes % (Manual) 15 (10.0-50.0) Monocytes % (Manual) 7 (0-12) Eosinophils % (Manual) 1 (0-7) Basophils % (Manual) (0.0-2.0) Metamyelocytes % (manual) Myelocytes % (Manual) Promyelocytes % (Manual) Blast Cells % (Manual) Reactive Lymphocytes Platelet Estimate Adequate Body Fluid Source Pleural fluid Body Fluid pH 6.0 Body Fluid WBC (Manual) 3688 CUMM (0-200) Body Fluid RBC (Manual) 9846057 CUMM (0-2000) Body Fluid Mononuclear Cells 40 % Body Fluid Polymorphonuclear Cells 60 % (0-25) Body Fluid Glucose 30 mg/dL (.) Body Fluid Total Protein 4.7 g/dL (.) Body Fluid Lactate Dehydrogenase 628 IU/L (.) Prothrombin Time 11.9 sec (9.3-11.8) Prothrombin Time INR 1.14 (0.9-1.15) Activated Partial Thromboplast Time 74.3 SEC (24.5-34.5) Blood Gas Liter Flow 10.00 Test 08/07/24 13:47 08/07/24 05:55 08/06/24 19:30 08/06/24 18:18 Carcinoembryonic Antigen 1.76 ng/mL (<=5.0) CA 19-9 Antigen <2 U/mL (0-35) Lactate Dehydrogenase 258 U/L (120-246) Urine Color Yellow (Yellow) Urine Clarity Clear (Clear) Urine pH 6.0 (5.0-9.0) Urine Specific [place] > 1.050 (1.001-1.035) Urine Protein 1+ (Negative) Urine Ketones Negative (Negative) Urine Blood Negative /uL (Negative) Urine Nitrite Negative (Negative) Urine Bilirubin Negative (Negative) Urine Urobilinogen Normal mg/dL (Negative) Urine Leukocyte Esterase Negative /uL (Negative) Urine RBC 9 /hpf (0 - 4) Urine Microscopic WBC 4 /HPF (0-5) Urine Squamous Epithelial Cells Few /hpf (<5) Urine Bacteria None seen /hpf (None Seen) Urine Mucus Few (None Seen) Urine Glucose Normal mg/dL (Normal) Erythrocyte Sedimentation Rate 13 mm/hr (0-20) Troponin I High Sensitivity 23 ng/L (</=34) Test 08/06/24 17:11 08/06/24 15:23 SARS-CoV-2 Antigen (Rapid) Negative (NEGATIVE) D-Dimer, Quantitative 11.47 mg/L FEU (0.0-0.49) C-Reactive Protein High Sensitivity 0.39 mg/dL (<1.0) B-Type Natriuretic Peptide 213.69 pg/mL (0-100) Other Laboratory Tests 08/14/24 06:53 08/13/24 13:00 Brief Hx & Hospital Course: History of Present Illness 74 y.o female with PMHx of breast cancer, HTN, hyperlipidemia, presents to the ED for a chief complaint of SOB associated with palpitations that started 1 week ago. Patient reports SOB worsens on exertion and is now experiencing lightheadedness with generalized weakness. Patient denies any nausea, vomiting, fever, chills, leg swelling, back pain. Patient was saturating at 86% on room air, was placed on 2 liters of oxygen via NC with improvement on respiration and saturation. Course of hospitalization: Patient had unprovoked pulmonary embolism as well as DVT, as well as large left pleural effusion. Patient states that she has an active individual and independent with all these acute problems occurring. Patient had thoracentesis x2, as well as fluid being sent to pathology, which came back positive for metastatic breast cancer. This was discussed with the patient yesterday in addition to providing her with a copy of her pathology report. Patient was initially treated with heparin, switching to Lovenox injections for anticoagulation, with the patient being started on Eliquis yesterday evening. Patient continues to require O2 supplementation which she will be continued on at 2 L/min. I, myself also spoke with the patient's primary care provider/bakery demonstrator/oncologist, Dr. Marilu Trinh, yesterday evening regarding the patient's diagnosis. Patient will follow up within one week. She will be continued on anticoagulation with Eliquis per starter pack dose. All questions have been answered. Physical examination General: Alert and Oriented x3. No acute distress. Well-nourished. Eyes: EOMI. Anicteric. HENT: Moist mucous membranes. Lungs: Clear to auscultation bilaterally. No accessory muscle use. Cardiovascular: Regular rate and rhythm. No murmur. No JVD. Abdomen: Soft, non-tender and non-distended. No palpable masses. Extremities: No edema. Non-tender. Skin: No rashes or lesions. Warm. Neurologic: No focal neurological deficits. CN II-XII grossly intact, but not individually tested. Psychiatric: Cooperative. Appropriate mood and affect. Total time spent with patient discussing and formulating plan of care: 35 minutes. This medical document was created using an electronic medical record system with [employer] dictation system. Although this document has been carefully reviewed, there may still be some phonetic and typographical errors. These areas are purely typographical due to imperfections of the software programs, and do not reflect any compromise in the patient's medical care. Condition at Discharge: Poor Final Diagnosis/Problems List Metastatic breast cancer Secondary diagnosis: -acute hypoxic respiratory failure -bilateral pulmonary embolisms -left pleural effusion -history of breast cancer, 10 years ago -degenerative joint disease -rule out DVT -dyslipidemia -pulmonary hypertension -rule out malignancy -primary hypertension Discharge Disposition: Home Discharge Instruct/Medications Diet: Regular Activity: No Restrictions, As Tolerated Follow Up/Referral: Follow up with PCP, Dr. Marilu Trinh in 1 week Medications: Eliquis 10 mg followed by 5 mg per new diagnosis of PE Continue all previous home medications 36 Discharge Statement: "Patient was advised to return to the ER or call 911 if any headaches, dizziness, shortness of breath, chest pain, abdominal pain, bleeding, fevers, or worsening of medical condition. Patient was counseled about treatment plan, medications, possible side effects, patientverbalized understanding. All questions were answered to the best of my ability. This discharge took greater then 30 minutes in planning, reviewing documentation, counseling the patient, and discussing with other team members." ASSESSMENT ASSESSMENT Assessment Metastatic breast cancer Date of Service: Aug 16, 2024 Billing Provider: VICENTE MARQUIS NP Common Visit Codes: 69945-MOO/OBS DISCH DAY >30min VICENTE MARQUIS NP Aug 16, 2024 16:10
[2024-08-16] MEDS ORDERED: RIVA1TAB PO (17:24)
[2024-08-22] MEDS ORDERED: APIXABAN 5 MG TAB PO SCH (22:00)
== END 2024-08-16 20:45 | disposition home or self-care (01) | DRG 177 ==
LOC: ER 14:00 → OVERFLOW 16:44 → TELE-CENTR 21:33
PROVIDERS: ADMIT Nurse Practitioner Acute Care; ATTEND Nurse Practitioner Acute Care
PROC: 0W9B3ZZ Drainage of Left Pleural Cavity, Percutaneous Approach (ICD-10-PCS; principal; 2024-08-07)
PROC: 0W9B3ZX Drainage of Left Pleural Cavity, Percutaneous Approach, Diagnostic (ICD-10-PCS; 2024-08-10)
PROC: 05HD33Z Insertion of Infusion Device into Right Cephalic Vein, Percutaneous Approach (ICD-10-PCS; 2024-08-13)
PROC: B54MZZA Ultrasonography of Right Upper Extremity Veins, Guidance (ICD-10-PCS; 2024-08-13)
DX: J15.69 Pneumonia due to other Gram-negative bacteria (principal); I26.99 Other pulmonary embolism without acute cor pulmonale; J96.01 Acute respiratory failure with hypoxia; I82.432 Acute embolism and thrombosis of left popliteal vein; J15.9 Unspecified bacterial pneumonia; E78.5 Hyperlipidemia, unspecified; I27.20 Pulmonary hypertension, unspecified; I10 Essential (primary) hypertension; D64.9 Anemia, unspecified; M19.09 Primary osteoarthritis, other specified site; Z79.899 Other long term (current) drug therapy; Z90.710 Acquired absence of both cervix and uterus; Z90.49 Acquired absence of other specified parts of digestive tract; Z85.3 Personal history of malignant neoplasm of breast; Z79.01 Long term (current) use of anticoagulants
CPT/HCPCS: 32555; 36415; 36600; 71045; 71260; 71275; 74177; 76604; 76942; 78306; 80048; 80053; 81001; 82378; 82805; 83615; 83735; 83880; 83986; 84484; 85025; 85379; 85610; 85652; 85730; 86141; 86301; 86304; 87040; 87070; 87205; 87426; 89051; 93005; 93306; 93970; 94640; 96365; 99291; G0378

== ENCOUNTER 2024-12-08 16:19 | Inpatient (IN) | payer MEDICARE, MEDICAID ==
[~2024-12-08] VITALS: Ht 162.6 cm; Wt 92.5 kg
[~2024-12-08 16:19] MED LIST changes: +AMLO1TAB23 PO; -ANAS1TAB7; +BACL10TA PO; +CARB200T4 PO; +CARB400T3 PO; +CEL100T PO; +CHOL20007 PO; +CHOL400T PO; -EPOGEN; +MELO7.5T7 PO; +METF-1145 PO; +OMEP1CAP70 PO; +OMEP20TA PO; +OXY5T GT; +OXYC15TA PO; +RIVA1TAB PO; +SIMV20TA20 PO; +TIZA4CAP PO
[2024-12-08 17:00] VITALS: O2SAT 93
[2024-12-08 17:23] LABS: Base Excess -10.2 mmol/L (-2.0-3.0)
[2024-12-08 17:24] LABS: Hemoglobin 12.7 g/dL (12.2-16.2)
[2024-12-08 17:26] LABS: Hematocrit 40.5 % (36.0-46.0); Mean Corpuscular Hemoglobin 26.3 pg (28.0-32.0); Mean Corpuscular Volume 84.1 fL (80.0-100.0); Nucleated Red Blood Cells % 0.8 %
[2024-12-08 17:37] LABS: Albumin 4.2 g/dL (3.2-4.8); Anion Gap 18 (5-15); BUN/Creatinine Ratio 38.6 (10.0-20.0); Calcium 9.5 mg/dL (8.7-10.4); Chloride 107 mmol/L (98-107); Magnesium 2.4 mg/dL (1.6-2.6); Potassium 5.0 mmol/L (3.5-5.1); Sodium 140 mmol/L (136-145); Total Protein 6.7 g/dL (5.7-8.2)
[2024-12-08 17:38] LABS: Alanine Aminotransferase 255 U/L (7-40); Alkaline Phosphatase 218 U/L (46-116); Bilirubin, Total 0.8 mg/dL (0.2-1.0); Blood Urea Nitrogen 59 mg/dL (9-23); Carbon Dioxide 15 mmol/L (20-31); Glucose 107 mg/dL (74-106)
[2024-12-08 17:41] LABS: INR 1.36 (0.9-1.15); Partial Thromboplastin Time 25.6 SEC (24.5-34.5); Prothrombin Time 14.0 sec (9.3-11.8)
[2024-12-08] MEDS ORDERED: PIPERACILLIN-TAZOB 3.375GM 100 ML IV ONE (18:00)
[2024-12-08] MEDS: SODIUM CHLORIDE 0.9% 1,000 ML IV ONE (18:00)
--- NOTE | 2024-12-08 18:41 | DVH ---
CHEST RADIOGRAPH Indication: sob Technique: Single frontal view of the chest was obtained COMPARISON: XY CHEST XRAY 1 VIEW on DOS: 08/15/24, XY CHEST XRAY 1 VIEW on DOS: 08/12/24, XY CHEST PORTAB LE on DOS: 08/10/24, CT CT CHEST/AB/PL W CON- IV ONLY on DOS: 08/10/24, XY CHEST PORTABLE on DOS: FINDINGS: Lines and Tubes: None Lungs: Congestion. Left mid lung scarring. Pleura: No effusion. No pneumothorax. Cardiomediastinal contours: Unremarkable Bones: Unremarkable IMPRESSION: Increased interstital prominence. This may represent pulmonary vascular congestion and/or viral pneum onia. Clinical correlation advised.
--- NOTE | 2024-12-08 19:00 | ED.PDOC ---
History of Present Illness HPI Comments 74-year-old female who came to ER shortness of breath. Patient does have history of hypertension, diabetes, pulmonary hypertension, pleural effusion, breast cancer post partial mastectomy, left, radiotherapy, chemotherapy. Patient states for the past 2 months, she has been experiencing shortness a breath, with worsening by pedal edema. For the past few days, she has been unable to ambulate because of the edema. Shortness a breath with exertion. Orthopnea. Denies any acute chest pains. Patient was saturating 84% care upon arrival. With a blood pressure of 185/106 mmHg REVIEW OF SYSTEMS: General: No fever, no chills, or fatigue HEENT: No sore throat, no earache, no congestion, no neck pain. Cardiac: No chest pain. No palpitations. Lungs: (+) shortness of breath, no cough. GI: No nausea, no vomiting, no diarrhea, no constipation, no abdominal pain : No dysuria, frequency, or urgency. No hematuria. Musculoskeletal: No joint pain , no joint swelling, (+) extremity edema. Skin: No rash, no itching. Neuro: No headache, no dizziness, no weakness EXAM: General: Awake, alert and oriented. No acute distress. Skin: Skin in warm, dry and intact. Appropriate color for ethnicity. HEENT: The head is normocephalic and atraumatic. Conjunctivae are clear without exudates or hemorrhage. Sclera is non-icteric. EOM are intact. No signs of nystagmus. Eyelids are normal in appearance without swelling or lesions. Oral mucosa is pink and moist Neck: The neck is supple with normal range of motion. No JVD. Cardiac: Heart rate and rhythm are normal. No murmurs, gallops, or rubs are auscultated. Respiratory: No signs of respiratory distress. Rales at bilateral bases. Abdominal: Abdomen is soft, non-tender without distention. Bowel sounds are present and normoactive in all four quadrants. Extremities: Bilateral lower extremity pitting edema. Neurological: The patient is awake, alert and oriented to person, place, and time with normal speech. Speech is clear. There is no facial asymmetry. Psychiatric: Appropriate mood and affect. Good judgement and insight Chief Complaint: Shortness of Breath Time Seen by MD: 18:59 Primary Care Provider: unknown Reviewed Notes: Application Defense Manager Notes Allergies: Coded Allergies: NO KNOWN ALLERGIES (Unverified , 08/29/09) Home Meds Active Scripts Rivaroxaban (Xarelto Starter Pack 15 & 20 mg) 1 Tab Tab, 1 TAB PO BID for 21 Days, #42 TAB 15 mg p.o. twice a day for 21 days then 20 mg p.o. daily Prov:TIARA MARQUISPH SENIOR JAVA WEB DEVELOPER 08/16/24 Reported Medications Oxycodone Hcl (OXYCODONE HCL) 5 Mg Tb, 15 MG GT, TAB 08/06/24 Cholecalciferol (VITAMIN D3) 2,000 Unit Tab, 1 TAB PO DAILY, #30 TAB 5 Refills 08/06/24 Amlodipine Besylate (Amlodipine Besylate) 10 Mg Tab, 1 TAB PO DAILY, #30 TAB 5 Refills 08/06/24 Tizanidine Hydrochloride (Zanaflex) 4 Mg Cap, 1 CAP PO QPM, #30 CAP 08/06/24 Simvastatin (Simvastatin) 20 Mg Tab, 1 TAB PO QPM, #30 TAB 5 Refills 08/06/24 Carbamazepine (Carbamazepine) 200 Mg Tab, 1 TAB PO BID, #60 TAB 1 Refill 08/06/24 Omeprazole (Gnp Omeprazole) 20 Mg Tab, 1 TAB PO DAILY, #90 TAB 1 Refill 08/06/24 Meloxicam (Meloxicam) 7.5 Mg Tab, 1 TAB PO DAILY, #30 TAB 2 Refills 08/06/24 Celecoxib (CeleBREX CAPSULE) 100 Mg Cp, 1 CAP PO BID, #60 CAP 3 Refills 08/06/24 Metformin Hydrochloride (Metformin Hcl Er) 500 Mg Tab, 1 TAB PO DAILY, #90 TAB 3 Refills 08/06/24 Information Source: Patient Mode of Arrival: EMS Past Medical History PAST MEDICAL HISTORY: Cancer (Breast), DM, High Lipids, HTN Past Medical History (Other): Radiotherapy. Chemotherapy. Pulmonary hypertension. Pleural effusion Surgical History: Cholecystectomy, Hysterectomy Surgical History (Other): Left partial mastectomy CLAIMS TECHNICIAN History: No Pertinent CLAIMS TECHNICIAN History Family History Family History: Unknown Social History Smoker: Non-Smoker Alcohol: Denies ETOH Use Drugs: Denies Drug Use Lives In: Home Was a procedure done? Was a procedure done?: No Differential Dx Considerations may include: Anemia, electrolyte imbalance, congestive heart failure, pneumonia, CA, pulm onary hypertension X-Ray, Labs, Meds, VS Vital Signs Date Time Temp Pulse Resp B/P (MAP) Pulse Ox O2 Delivery O2 Flow Rate FiO2 12/08/24 18:19 106 21 154/96 (115) 96 12/08/24 17:36 63 21 154/83 (106) 98 12/08/24 17:00 93 Non-Rebreather 10 N/A 12/08/24 16:30 96.3 110 24 185/106 84 96.3 12/08/24 16:19 66 Lab Test 12/08/24 20:17 12/08/24 18:38 12/08/24 17:18 12/08/24 17:14 Range/Units Prothrombin Time Pending 14.0 H 9.3-11.8 sec Prothrombin Time INR Pending 1.36 H 0.9-1.15 Activated Partial Thromboplast Time Pending 25.6 24.5-34.5 SEC Lactic Acid Level Pending 4.6 *H 0.4-2.0 mmol/L Blood Gas Specimen Type Arterial Blood Gas Sample Site Right radial Blood Gas Patient Temperature 37.0 Arterial Blood Date Drawn [id number] Arterial Blood pH 7.390 7.350-7.450 Arterial Blood Partial Pressure CO2 21.5 L 32.0-45.0 mmHg Arterial Blood Partial Pressure O2 82.0 L 83.0-108.0 mmHg Arterial Blood HCO3 12.7 L 21.0-28.0 mmol/L Arterial Blood Oxygen Saturation 94.2 94.0-98.0 % Arterial Blood Base Excess -10.2 L -2.0-3.0 mmol/L Arterial Blood Oxyhemoglobin 93.2 L 94.0-98.0 % Arterial Blood Carboxyhemoglobin 0.5 0.5-1.5 % Arterial Blood Methemoglobin 0.6 0.0-1.5 % Eloy Test Yes Blood Gas Total Hemoglobin 12.50 12.0-16.0 g/dL Blood Gas Liter Flow 10.00 Blood Gas Modality Mask - nrb Blood Gas Spontaneous Rate 18 FiO2 % 70.0 Specimen [facility] White Blood Count 13.6 H 4.4-10.8 10^3/uL Red Blood Count 4.82 4.0-5.20 10^6/uL Hemoglobin 12.7 12.2-16.2 g/dL Hematocrit 40.5 36.0-46.0 % Mean Corpuscular Volume 84.1 80.0-100.0 fL Mean Corpuscular Hemoglobin 26.3 L 28.0-32.0 pg Mean Corpuscular Hemoglobin Concent 31.3 L 32.0-36.0 g/dL Red Cell Distribution Width 21.7 H 11.8-14.3 % Platelet Count 292 140-450 10^3/uL Mean Platelet Volume 7.1 6.9-10.8 fL Neutrophils (%) (Auto) 88.1 H 37.0-80.0 % Lymphocytes (%) (Auto) 8.4 L 10.0-50.0 % Monocytes (%) (Auto) 3.4 0.0-12.0 % Eosinophils (%) (Auto) 0.0 0.0-7.0 % Basophils (%) (Auto) 0.1 0.0-2.0 % Neutrophils # (Auto) 12.0 H 1.6-8.6 10 ^3/uL Lymphocytes # (Auto) 1.1 0.4-5.4 10 ^3/uL Monocytes # (Auto) 0.5 0-1.3 10 ^3/uL Eosinophils # (Auto) 0 0-0.8 10 ^3/uL Basophils # (Auto) 0 0-0.2 10 ^3/uL Nucleated Red Blood Cells 0.8 % Sodium Level 140 136-145 mmol/L Potassium Level 5.0 3.5-5.1 mmol/L Chloride Level 107 98-107 mmol/L Carbon Dioxide Level 15 L 20-31 mmol/L Anion Gap 18 H 5-15 Blood Urea Nitrogen 59 H 9-23 mg/dL Creatinine 1.53 H 0.550-1.02 mg/dL Glomerular Filtration Rate Calc 36 >90 mL/min BUN/Creatinine Ratio 38.6 H 10.0-20.0 Serum Glucose 107 H 74-106 mg/dL Calcium Level 9.5 8.7-10.4 mg/dL Magnesium Level 2.4 1.6-2.6 mg/dL Total Bilirubin 0.8 0.2-1.0 mg/dL Aspartate Amino Transferase (AST) 102 H 13-40 U/L Alanine Aminotransferase (ALT) 255 H 7-40 U/L Alkaline Phosphatase 218 H 46-116 U/L Troponin I High Sensitivity 54 *H </=34 ng/L B-Type Natriuretic Peptide 1151.30 0-100 pg/mL Total Protein 6.7 5.7-8.2 g/dL Albumin 4.2 3.2-4.8 g/dL CHEST RADIOGRAPH Indication: sob Technique: Single frontal view of the chest was obtained COMPARISON: XY CHEST XRAY 1 VIEW on DOS: 08/15/24, XY CHEST XRAY 1 VIEW on DOS: 08/12/24, XY CHEST PORTABLE on DOS: 08/10/24, CT CT CHEST/AB/PL W CON- IV ONLY on DOS: 08/10/24, XY CHEST PORTABLE on DOS: 08/07/24 FINDINGS: Lines and Tubes: None Lungs: Congestion. Left mid lung scarring. Pleura: No effusion. No pneumothorax. Cardiomediastinal contours: Unremarkable Bones: Unremarkable IMPRESSION: Increased interstital prominence. This may represent pulmonary vascular congestion and/or viral pneumonia. Clinical correlation advised. Echocardiogram July 2024: Conclusion Sinus rhythm. Off axis views. Right atrial enlargement. RV enlargement. RV outflow tract enlargement. Pulmonary artery enlargement. Valves appear to be structurally. Left ventricular function is preserved. EF of 60% with normal RV function. [id number] tricuspid insufficiency with pulmonary hypertension. No pericardial effusion masses or vegetations. There appears to be large left pleural effusion. Time of 1ST Reevaluation: 18:54 Reevaluation 1ST: Unchanged Patient Education/Counseling: Need For Follow Up Family Education/Counseling: Need For Follow Up SEPSIS Sepsis Screen Date sepsis recognized/suspect: Dec 08, 2024 Time Sepsis recognized/suspect: 1620 Recent Procedure: No On Antibiotic Therapy: No Respiratory Rate >20: Yes Heart Rate >90: Yes Temp<36 C (96.8 F) or >38.3 C: No SBP <90 or MAP <65 mmHG: No New Acute Mental Status Change: No Is the patient on CPAP, BIPAP,: No Physician Orders Urinalysis (12/08/24 17:00) Heplock Iv (12/08/24 17:00) Oxygen (12/08/24 17:00) Assistant Professor Sculpture (12/08/24 17:00) Blood Pressure (12/08/24 17:00) Pulse Oximetry (12/08/24 17:00) Electrocardigram (12/08/24 17:00) Abg W/ Co-Ox (12/08/24 17:00) Blood Culture (12/08/24 17:54) Sodium Chloride 0.9% (12/08/24 18:00) Sepsis Reassesment After Fluid (12/08/24 ) Sepsis (12/08/24 17:59) Initiate Sepsis Protocol (12/08/24 ) Chest Xray 1 View (12/08/24 17:00) Bilat Lower Dvt (12/08/24 18:48) Platelet Monitoring (12/08/24 19:56) Vte Protocol Initiated (12/08/24 19:56) Heparin Per Standardized Proce (12/08/24 19:56) Discontinue All Im Injections (12/08/24 19:56) PTPTT (12/08/24 19:56) Heparin Drip/D5w 100units/Ml (12/08/24 20:00) Vital Signs Date Time Temp Pulse Resp B/P (MAP) Pulse Ox O2 Delivery O2 Flow Rate FiO2 12/08/24 18:19 106 21 154/96 (115) 96 12/08/24 17:36 63 21 154/83 (106) 98 12/08/24 17:00 93 Non-Rebreather 10 N/A 12/08/24 16:30 96.3 110 24 185/106 84 96.3 12/08/24 16:19 66 Laboratory Tests Test 12/08/24 17:14 12/08/24 18:38 12/08/24 20:17 White Blood Count 13.6 10^3/uL (4.4-10.8) H Lactic Acid Level 4.6 mmol/L (0.4-2.0) *H Pending Departure 1 Departure Time of Disposition: 20:32 Impression: Primary Impression: Dyspnea Additional Impressions: DVT, bilateral lower limbs Pulmonary hypertension Disposition: ADMITTED INPATIENT Condition: Stable Comments 74-year-old female who presents with worsening dyspnea Ultrasound concerning for bilateral DVT GFR 36, no CT angio chest at this time Patient is started on heparin Patient is stabilized in the ED Patient admitted to hospitalist service for further treatment, evaluation and monitoring. Extensive evaluation was performed in attempt to identify or rule out: (See differential diagnosis section) The following tests were ordered, and results were reviewed by me and discussed with patient: (See diagnostic results section) I reviewed and agreed with the following test results read by other providers: Chest x-ray I reviewed the following notes from the pt's past medical encounters: Encounter July/2024 for pneumonia Additional information was gathered from interviewing the following independent historians: Patient's granddaughter at bedside Drug therapy requiring intensive monitoring for toxicity: IV heparin , IV Lasix Critical Care Note Critical Care Time?: Yes (35 min-critical care time only) Critical care comment: Shortness a breath Stability Stability form required: No Heart Score Heart Score: Heart Score Response (Comments) Value History Moderate Suspicious 1 EKG Repolarization Disturb 1 Age >65 2 Risk Factors >3 or Hx ASHD 2 Troponin 1-2 x's Normal limit 1 Total 7 I personally scribed for LESLYE JOE MD ([email or web address]) on 12/08/24 at 19:00. Electronically submitted by Mike Fontenot ([facility]). LESLYE JOE MD Dec 08, 2024 19:00
[2024-12-08 19:20] LABS: Lactic Acid w/Reflex 4.6 mmol/L (0.4-2.0)
[2024-12-08 19:30] VITALS: PULSE 110; RESP 20; O2SAT 99
[2024-12-08 19:40] VITALS: PULSE 102; O2SAT 98
[2024-12-08] MEDS ORDERED: HEPARIN DRIP/D5W 100UNITS/ML 250 ML IV SCH (20:00)
--- NOTE | 2024-12-08 20:21 | DVH ---
Bilateral lower extremity venous duplex Clinical History: b/l le edema Comparison: US BILAT LOWER DVT on DOS: 08/07/24 Technique: Duplex doppler evaluation of the deep venous systems of both lower extremities from the common femora l veins to the popliteal veins including color doppler and spectral/pulsed waveform analysis was perf ormed. Findings: RIGHT SIDE: The common femoral vein demonstrates appropriate compressibility and waveform variability. There is compressibility/patency of the great saphenous vein at the proximal thigh. The femoral vein demonstrates non occlusive thrombus at its mid portion The deep femoral vein demonstrates appropriate compressibility and waveform variability. The popliteal vein demonstrates non-occlusive thrombus. There is normal compressibility at the tibioperoneal trunk. LEFT SIDE: The common femoral vein demonstrates non occlusive thrombus. There is compressibility/patency of the great saphenous vein at the proximal thigh. The femoral vein demonstrates thrombus proximately. Occlusive thrombus at its mid portion. The deep femoral vein demonstrates appropriate compressibility and waveform variability. The popliteal vein demonstrates occlusive thrombus. Occlusive thrombus within the posterior tibial vein. Impression: Positive for bilateral DVT with non occlusive thrombus in the right superficial femoral vein and popl iteal vein, non-occlusive thrombus in the left common femoral vein and proximal superficial femoral v ein, and occlusive thrombus within the left mid superficial femoral vein, popiteal vein, posterior ti bial vein.
[2024-12-08 20:53] LABS: INR 1.41 (0.9-1.15); Partial Thromboplastin Time 25.3 SEC (24.5-34.5); Prothrombin Time 14.4 sec (9.3-11.8)
[2024-12-08] MEDS: HEPARIN SODIUM (PORCINE) 5000 UNITS/ML 1ML VIAL IV ONE ×2 (21:22→21:42)
[2024-12-08] MEDS: FUROSEMIDE 40 MG/4 ML VIAL IV ONE (21:39)
--- NOTE | 2024-12-08 21:51 | ECG ---
[facility] Test Date: 2024-12-08 Test Time: 16:27:47 Pat Name: CLARIBEL GEIGER Department: [facility] ED Patient ID: [id number] Room: 0249T Gender: F Prosthetist: : 1950 Requested By: CHAPIN DACOSTA Order Number: [id number] Reading MD: Tavares Cho Measurements Intervals [place] Rate: 107 P: 43 ND: 137 QRS: 180 QRSD: 92 T: 67 QT: 337 QTc: 450 Interpretive Statements Sinus tachycardia Probable left atrial enlargement Right axis deviation Low voltage, precordial leads Electronically Signed On 12-13-2024 21:59:39 PDT by Tavares Cho Please click the below link to view image of tracing.
[2024-12-08] MEDS: CEFEPIME 1GM/50ML 50 ML IV ONE (21:54)
--- NOTE | 2024-12-08 22:13 | DVHHP2 ---
ABDI PADILLA RESIDENT 12/08/24 2213: History of Present Illness History of Present Illness 74 y/o F presenting with progressive worsening SOB, fatigue, generalized weakness, and bilateral LE edema. SOB occurs at rest and is worse with exertion. No associated CP, fever, chills, or sputum production. Reports requiring increasing amounts of home O2, which prompted visit. Denies any other acute complaints including fever, chills, CP, abdominal pain, irregular bowel/bladder, motor weakness, or sensory deficit. Past medical history: Breast cancer diagnosed in 2009 with recent metastasis to pleural cavity. Following with Dr. Trinh. Hypertension. Hyperlipidemia. Pleural effusion. Pulmonary hypertension. New onset DVT in July. Prescribed oral anticoagulation, but reports only taking for 30 days and has not been on it for the past 3 mo. Past surgical history :Partial mastectomy. Personal history :Non-contributory. Allergy :None. Family history :Non-contributory. Home medications : Letrozole 2.5 mg p.o. daily, amlodipine 10 mg p.o. daily, carbamazepine 200 mg p.o. b.i.d., metformin 500 mg p.o. daily, meloxicam 7.5 mg p.o. daily, omeprazole 20 mg p.o. daily, tizanidine 4 mg p.o. daily, lisinopril 10 mg p.o. daily, baclofen 10 mg p.o. daily. Review of Systems Constitutional: No: Fever, Chills, Sweats, Weakness, Malaise, Other Eyes: No: Pain, Vision change, Conjunctivae inflammation, Eyelid inflammation, Other, Redness ENT: No: Ear pain, Ear discharge, Nose pain, Nose discharge, Nose congestion, Mouth pain, Mouth swelling, Throat pain, Throat swelling, Other Respiratory: Shortness of breath, SOB with excertion Cardiovascular: Edema Gastrointestinal: No: Nausea, Vomiting, Abdominal Pain, Diarrhea, Constipation, Melena, Hematochezia, Other Genitourinary: No Dysuria, No Frequency, No Incontinence, No Hematuria, No Retention, No Other Musculoskeletal: No: other, neck pain, shoulder pain, arm pain, back pain, hand pain, leg pain, foot pain Skin: No: Rash, Lesions, Jaundice, Bruising, Other Neurological: Weakness Allergies: Coded Allergies: NO KNOWN ALLERGIES (Unverified , 08/29/09) Medications Current Medications Medications Dose Ordered Sig/Edouard Route Start Time Stop Time Status Last Admin Dose Admin Heparin Sodium/ Dextrose 250 ml @ 16.5 mls/hr [id number] IV 12/08/24 21:00 Nitroglycerin 0.4 mg Q5MINP PRN SL 12/08/24 22:15 UNV Morphine Sulfate 2 mg Q30M PRN IV 12/08/24 22:15 UNV Cefepime HCl 50 ml @ 12.5 mls/hr Q12HR IV 12/09/24 10:00 UNV Ipratropium [place] 0.5 mg Q6HWA NEB 12/09/24 06:00 UNV Furosemide 40 mg DAILY IV 12/09/24 10:00 UNV Exam Vital Signs Vital Signs Date Time Temp Pulse Resp B/P (MAP) Pulse Ox O2 Delivery O2 Flow Rate FiO2 12/08/24 21:39 144/93 12/08/24 19:40 99.6 102 18 98 99.6 12/08/24 19:40 Room Air* 0 21 General Appearance: Alert, Oriented X3, Cooperative HEENT: PERRLA, EOMI, Mucous membr. moist/pink Respiratory: Clear to auscultation, Normal air movement Cardiovascular: Normal S1, Normal S2, No murmurs Abdominal: Normal bowel sounds, Soft, No tenderness, No hepatospenomegaly Extremities: Other (Bilateral pitting edema 3+) Skin: No rashes, No breakdown, No significant lesion Neuro: Normal gait, Normal speech, Strength at 5/5 X4 ext, Normal tone, Sensation intact, Cranial nerves 3-12 NL, Reflexes 2+ Psych/Mental Status: Mental status NL Labs/Xrays Labs Test 12/08/24 20:17 12/08/24 17:18 12/08/24 17:14 Range/Units Prothrombin Time 14.4 H 9.3-11.8 sec Prothrombin Time INR 1.41 H 0.9-1.15 Activated Partial Thromboplast Time 25.3 24.5-34.5 SEC Lactic Acid Level 4.4 *H 0.4-2.0 mmol/L Blood Gas Specimen Type Arterial Blood Gas Sample Site Right radial Blood Gas Patient Temperature 37.0 Arterial Blood Date Drawn [id number] Arterial Blood pH 7.390 7.350-7.450 Arterial Blood Partial Pressure CO2 21.5 L 32.0-45.0 mmHg Arterial Blood Partial Pressure O2 82.0 L 83.0-108.0 mmHg Arterial Blood HCO3 12.7 L 21.0-28.0 mmol/L Arterial Blood Oxygen Saturation 94.2 94.0-98.0 % Arterial Blood Base Excess -10.2 L -2.0-3.0 mmol/L Arterial Blood Oxyhemoglobin 93.2 L 94.0-98.0 % Arterial Blood Carboxyhemoglobin 0.5 0.5-1.5 % Arterial Blood Methemoglobin 0.6 0.0-1.5 % Eloy Test Yes Blood Gas Total Hemoglobin 12.50 12.0-16.0 g/dL Blood Gas Liter Flow 10.00 Blood Gas Modality Mask - nrb Blood Gas Spontaneous Rate 18 FiO2 % 70.0 [facility] [place] [facility] White Blood Count 13.6 H 4.4-10.8 10^3/uL Red Blood Count 4.82 4.0-5.20 10^6/uL Hemoglobin 12.7 12.2-16.2 g/dL Hematocrit 40.5 36.0-46.0 % Mean Corpuscular Volume 84.1 80.0-100.0 fL Mean Corpuscular Hemoglobin 26.3 L 28.0-32.0 pg Mean Corpuscular Hemoglobin Concent 31.3 L 32.0-36.0 g/dL Red Cell Distribution Width 21.7 H 11.8-14.3 % Platelet Count 292 140-450 10^3/uL Mean Platelet Volume 7.1 6.9-10.8 fL Neutrophils (%) (Auto) 88.1 H 37.0-80.0 % Lymphocytes (%) (Auto) 8.4 L 10.0-50.0 % Monocytes (%) (Auto) 3.4 0.0-12.0 % Eosinophils (%) (Auto) 0.0 0.0-7.0 % Basophils (%) (Auto) 0.1 0.0-2.0 % Neutrophils # (Auto) 12.0 H 1.6-8.6 10 ^3/uL Lymphocytes # (Auto) 1.1 0.4-5.4 10 ^3/uL Monocytes # (Auto) 0.5 0-1.3 10 ^3/uL Eosinophils # (Auto) 0 0-0.8 10 ^3/uL Basophils # (Auto) 0 0-0.2 10 ^3/uL Nucleated Red Blood Cells 0.8 % Sodium Level 140 136-145 mmol/L Potassium Level 5.0 3.5-5.1 mmol/L Chloride Level 107 98-107 mmol/L Carbon Dioxide Level 15 L 20-31 mmol/L Anion Gap 18 H 5-15 Blood Urea Nitrogen 59 H 9-23 mg/dL Creatinine 1.53 H 0.550-1.02 mg/dL Glomerular Filtration Rate Calc 36 >90 mL/min BUN/Creatinine Ratio 38.6 H 10.0-20.0 Serum Glucose 107 H 74-106 mg/dL Calcium Level 9.5 8.7-10.4 mg/dL Magnesium Level 2.4 1.6-2.6 mg/dL Total Bilirubin 0.8 0.2-1.0 mg/dL Aspartate Amino Transferase (AST) 102 H 13-40 U/L Alanine Aminotransferase (ALT) 255 H 7-40 U/L Alkaline Phosphatase 218 H 46-116 U/L Troponin I High Sensitivity 54 *H </=34 ng/L B-Type Natriuretic Peptide 1151.30 0-100 pg/mL Total Protein 6.7 5.7-8.2 g/dL Albumin 4.2 3.2-4.8 g/dL SEPSIS Sepsis Screen Date sepsis recognized/suspect: Dec 08, 2024 Time Sepsis recognized/suspect: 1800 Recent Procedure: No On Antibiotic Therapy: No Respiratory Rate >20: Yes Heart Rate >90: Yes Temp<36 C (96.8 F) or >38.3 C: No SBP <90 or MAP <65 mmHG: No New Acute Mental Status Change: No Is the patient on CPAP, BIPAP,: No Physician Orders Urinalysis (12/08/24 17:00) Heplock Iv (12/08/24 17:00) Oxygen (12/08/24 17:00) Watch Repairer (12/08/24 17:00) Blood Pressure (12/08/24 17:00) Pulse Oximetry (12/08/24 17:00) Abg W/ Co-Ox (12/08/24 17:00) Blood Culture (12/08/24 17:54) Sodium Chloride 0.9% (12/08/24 18:00) Sepsis Reassesment After Fluid (12/08/24 ) Sepsis (12/08/24 17:59) Initiate Sepsis Protocol (12/08/24 ) Chest Xray 1 View (12/08/24 17:00) Bilat Lower Dvt (12/08/24 18:48) Platelet Monitoring (12/08/24 19:56) Vte Protocol Initiated (12/08/24 19:56) Heparin Per Standardized Proce (12/08/24 19:56) Discontinue All Im Injections (12/08/24 19:56) Heparin Drip/D5w 100units/Ml (12/08/24 21:00) Admit (12/08/24 22:01) Nitroglycerin Sublingual (Ntrostat Subli (12/08/24 22:15) Morphine Sulfate Injection (12/08/24 22:15) Oxygen By Nasal Cannula (12/08/24 22:01) Stat Ekg For Chest Pain (12/08/24 22:01) Notify Of Changes From Base (12/08/24 22:) Plating And Point Assembly Supervisor For 24 Hours (12/08/24 22:01) Emergency Dysrhythmia Protocol (12/08/24 22:01) Rhythm Strips Once Every Shift (12/08/24 22:01) Electrocardigram (12/08/24 22:01) Urinalysis (12/08/24 22:01) Urine Bacterial Culture (12/08/24 22:01) Cefepime 1gm/50ml (Maxipime 1gm/50ml) (12/09/24 10:00) Respiratory Culture W/ Gs (12/08/24 22:01) Rapid Influenza A&B (12/08/24 22:01) Covid19 Antigen Latanya (12/08/24 ) Complete Blood Count (12/09/24 04:00) Magnesium (12/09/24 04:00) Abg W/ Co-Ox (12/08/24 22:01) Ipratropium Medneb (Atrovent Medneb) (12/09/24 06:00) Nm Vq Scan (12/08/24 22:01) Troponin-I Hs (12/08/24 22:01) Troponin-I Hs (12/08/24 23:01) Furosemide Injection (Lasix Injection) (12/09/24 10:00) Lactic Acid W/ Reflex Order (12/09/24 02:00) Code Status (12/08/24 22:11) Pantoprazole Tablet (Protonix Tablet) (12/08/24 22:15) Pantoprazole Tablet (Protonix Tablet) (12/09/24 06:00) Vital Signs Date Time Temp Pulse Resp B/P (MAP) Pulse Ox O2 Delivery O2 Flow Rate FiO2 12/08/24 21:39 144/93 12/08/24 19:40 99.6 102 18 140/90 (107) 98 99.6 12/08/24 19:40 98 Room Air* 0 21 12/08/24 19:40 102 98 Room Air* 0 21 12/08/24 18:19 106 21 154/96 (115) 96 12/08/24 17:36 63 21 154/83 (106) 98 12/08/24 17:00 93 Non-Rebreather 10 N/A 12/08/24 16:30 96.3 110 24 185/106 84 96.3 12/08/24 16:27 107 12/08/24 16:19 66 Laboratory Tests Test 12/08/24 17:14 12/08/24 18:38 12/08/24 20:17 White Blood Count 13.6 10^3/uL (4.4-10.8) H Lactic Acid Level 4.6 mmol/L (0.4-2.0) *H 4.4 mmol/L (0.4-2.0) *H Medications Medications Dose Ordered Sig/Edouard Route Start Time Stop Time Status Last Admin Dose Admin Cefepime HCl 50 ml @ 50 mls/hr ONCE ONCE IV 12/08/24 19:00 12/08/24 19:59 DC 12/08/24 21:54 50 MLS/HR Furosemide 40 mg ONCE ONCE IV 12/08/24 18:45 12/08/24 18:46 DC 12/08/24 21:39 40 MG Heparin Sodium (Porcine) 7,200 units ONCE ONCE IV 12/08/24 20:00 12/08/24 20:08 DC 12/08/24 21:42 7,200 UNITS Assessment/Plan Assessment/Plan Extensive bilateral lower extremity DVT Sepsis due to bilateral viral pneumonia Acute hypoxic respiratory failure ISACC due to VMN NSTEMI type 2 Rule out pulmonary embolism. 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 -Echocardiogram 08/10/2024 showed severe pulmonary hypertension with right ventricular enlargement. Ejection fraction 60%. -Elevated BNP 1151, continue IV Lasix 40 mg daily. -Given extensive history of pulmonary embolism, extensive DVT, breast cancer: Rule out PE, pending V/Q scan. -Continue to monitor kidney function given underlying ISACC. -Pending respiratory culture, COVID antigen, influenza a and B, urine bacteria culture, blood culture. -Currently on non-rebreather mask with 10 L oxygen flow. Patient is DNI. -Poor prognosis -PUD prophylaxis with Protonix -DVT prophylaxis with heparin Extensive discussion done with patient, currently patient would like to opted for DNI. Time spent greater than 26 minute. Plan discussed with Plan discussed with: Patient, Other My Orders Orders - ABDI PADILLA RESIDENT Procedure Category Date Status Time Admit ADMIT 12/08/24 Transmitted 22:01 Nitroglycerin PHA 12/08/24 Logged Sublingual (Ntrostat 22:15 Morphine Sulfate PHA 12/08/24 Logged Injection 22:15 Oxygen By Nasal RT 12/08/24 Transmitted Cannula 22:01 Stat Ekg For Chest [facility] 12/08/24 In Process Pain 22:01 Notify Of Changes [facility] 12/08/24 In Process From Base 22:01 Plating And Point Assembly Supervisor For [facility] 12/08/24 In Process 24 Hours 22:01 Emergency Dysrhythmia [facility] 12/08/24 In Process Protocol 22:01 Rhythm Strips Once [facility] 12/08/24 In Process Every Shift 22:01 Electrocardigram EKG 12/08/24 Logged 22:01 Urinalysis LAB 12/08/24 Logged 22:01 Urine Bacterial STACI 12/08/24 Logged Culture 22:01 Cefepime 1gm/50ml PHA 12/09/24 Logged (Maxipime 1gm/50ml) 10:00 Respiratory Culture STACI 12/08/24 Logged W/ Gs 22:01 Rapid Influenza A&B LAB 12/08/24 Logged 22:01 Covid19 Antigen Latanya LAB 12/08/24 Logged Complete Blood Count LAB 12/09/24 Verified 04:00 Magnesium LAB 12/09/24 Verified 04:00 Abg W/ Co-Ox RT 12/08/24 Logged 22:01 Ipratropium Medneb PHA 12/09/24 Logged (Atrovent Medneb) 06:00 Nm Vq Scan NM 12/08/24 Logged 22:01 Troponin-I Hs LAB 12/08/24 Logged 22:01 Troponin-I Hs LAB 12/08/24 Logged 23:01 Furosemide Injection PHA 12/09/24 Logged (Lasix Injection) 10:00 Lactic Acid W/ Reflex LAB 12/09/24 Verified Order 02:00 Code Status CODE 12/08/24 Transmitted 22:11 Pantoprazole Tablet PHA 12/08/24 Verified (Protonix Tablet) 22:15 Pantoprazole Tablet PHA 12/09/24 Verified (Protonix Tablet) 06:00 Date of Service: Dec 08, 2024 Billing Provider: ADALBERTO MASSEY MD Common Visit Codes: [id number] INP/OBS CARE (HIGH) Secondary Visit Codes: [id number] CARE PLAN 30 MINUTES ADALBERTO MASSEY MD 12/09/24 1257: Review of Systems Allergies: Coded Allergies: NO KNOWN ALLERGIES (Unverified , 08/29/09) Date of Service: Dec 08, 2024 ([facility] Patient) Billing Provider: ADALBERTO MASSEY MD Common Visit Codes: [id number] INP/OBS CARE (HIGH) Secondary Visit Codes: [id number] CARE PLAN 30 MINUTES ABDI PADILLA Dec 08, 2024 22:13 ADALBERTO MASSEY MD Dec 09, 2024 12:57
[2024-12-08] MEDS ORDERED: NITROGLYCERIN 0.4 MG SL TAB SL PRN (22:15)
[2024-12-08] MEDS ORDERED: MORPHINE SULFATE INJ 2 MG/ml SYRG IV PRN (22:15)
[2024-12-08 22:32] LABS: Base Excess -10.2 mmol/L (-2.0-3.0)
[2024-12-08 22:49] VITALS: BP 144/93; PULSE 102; RESP 18; TEMP 99.6; O2SAT 91; O2SAT 92
[2024-12-08] MEDS: VANCOMYCIN 1GM/250ML KIT 250 ML IV ONE (22:57)
[2024-12-08 23:44] VITALS: BP 162/103; PULSE 111; RESP 22; TEMP 97.4; O2SAT 98
[2024-12-08 23:50] VITALS: PULSE 111
[2024-12-09] VITALS (37 sets, daily range): BP systolic 114–162; BP diastolic 49–103; PULSE 106–136; RESP 13–26; TEMP 97.3–98.8; O2SAT 89–100
[2024-12-09] MEDS: PANTOPRAZOLE 40 MG TAB PO ONE (00:51)
[2024-12-09] MEDS: HEPARIN DRIP/D5W 100UNITS/ML 250 ML IV SCH ×2 (00:52→10:17)
[2024-12-09] MEDS: AZITHROMYCIN 500MG/ 250ML 250 ML IV ONE (03:00)
[2024-12-09] MEDS: PANTOPRAZOLE 40 MG TAB PO SCH (05:40)
[2024-12-09 06:37] LABS: Urine Protein, UAD Negative (Negative)
[2024-12-09 07:08] LABS: COVID19 ANTIGEN SOFIA FIA NEGATIVE (NEGATIVE)
[2024-12-09] MEDS: IPRATROPIUM BROM 0.5 MG/2.5ML INH SOL NEB SCH (07:19)
[2024-12-09 07:53] LABS: INR 1.48 (0.9-1.15); Partial Thromboplastin Time 26.6 SEC (24.5-34.5); Prothrombin Time 15.1 sec (9.3-11.8)
[2024-12-09 07:58] LABS: Lactic Acid w/Reflex 3.3 mmol/L (0.4-2.0)
[2024-12-09 08:17] LABS: Hematocrit 36.3 % (36.0-46.0); Hemoglobin 11.7 g/dL (12.2-16.2); Mean Corpuscular Hemoglobin 26.6 pg (28.0-32.0); Mean Corpuscular Volume 82.5 fL (80.0-100.0); Nucleated Red Blood Cells % 1.3 %
--- NOTE | 2024-12-09 09:07 | CONS ---
Pharmacy Clinical Information: APTT = 26.6 VERIFIED WITH RASHAUN LIRA THAT DRIP IS CURRENTLY RUNNING AT 1650 UNITS/HR A PRIMARY LINE BOLUS 5000 UNITS HEPARIN IV, AND INCREASE DRIP RATE TO 1950 UNITS/HR NEXT APTT DRAW SCHEDULED FOR 1500 PER RX PROTOCOL JAZMIN PACHECO PHARMACIST Dec 09, 2024 09:07
[2024-12-09] MEDS ORDERED: FUROSEMIDE 40 MG/4 ML VIAL IV SCH (10:00)
[2024-12-09] MEDS: HEPARIN SODIUM (PORCINE) 5000 UNITS/ML 1ML VIAL IV ONE (10:16)
--- NOTE | 2024-12-09 12:35 | DVHINCON2 ---
Date of service: Dec 09, 2024 History of Present Illness 74 yo F with bilateral DVT hx of dvt, mtastatic breast cancer , hypotensive tachy admitted to floor with hypoxia . i was called stat. pt apperars in distre ss going to ct scanner. i came down to CT and pt has large BL PE R occlusive central PE. echo pending . i spoke to [facility] Past Medical History reviewed Family History: FH: dementia G8 MOTHER Allergies: Coded Allergies: NO KNOWN ALLERGIES (Unverified , 08/29/09) Home Meds Active Scripts Rivaroxaban (Xarelto Starter Pack 15 & 20 mg) 1 Tab Tab, 1 TAB PO BID for 21 Days, #42 TAB 15 mg p.o. twice a day for 21 days then 20 mg p.o. daily Prov:VICENTE MARQUIS MOBILITY ENGINEER 08/16/24 Reported Medications Oxycodone Hcl (OXYCODONE HCL) 5 Mg Tb, 15 MG GT, TAB 08/06/24 Cholecalciferol (VITAMIN D3) 2,000 Unit Tab, 1 TAB PO DAILY, #30 TAB 5 Refills 08/06/24 Amlodipine Besylate (Amlodipine Besylate) 10 Mg Tab, 1 TAB PO DAILY, #30 TAB 5 Refills 08/06/24 Tizanidine Hydrochloride (Zanaflex) 4 Mg Cap, 1 CAP PO QPM, #30 CAP 08/06/24 Simvastatin (Simvastatin) 20 Mg Tab, 1 TAB PO QPM, #30 TAB 5 Refills 08/06/24 Carbamazepine (Carbamazepine) 200 Mg Tab, 1 TAB PO BID, #60 TAB 1 Refill 08/06/24 Omeprazole (Gnp Omeprazole) 20 Mg Tab, 1 TAB PO DAILY, #90 TAB 1 Refill 08/06/24 Meloxicam (Meloxicam) 7.5 Mg Tab, 1 TAB PO DAILY, #30 TAB 2 Refills 08/06/24 Celecoxib (CeleBREX CAPSULE) 100 Mg Cp, 1 CAP PO BID, #60 CAP 3 Refills 08/06/24 Metformin Hydrochloride (Metformin Hcl Er) 500 Mg Tab, 1 TAB PO DAILY, #90 TAB 3 Refills 08/06/24 Current Medications Current Medications Medications (Trade) Dose Ordered Sig/Edouard Route PRN Reason Start Time Stop Time Status Last Admin Heparin Sodium/ Dextrose 250 ml @ 16.362 mls/ hr [id number] IV 12/08/24 20:00 12/08/24 20:36 DC Heparin Sodium/ Dextrose 250 ml @ 16.5 mls/hr [id number] IV 12/08/24 21:00 12/09/24 09:02 DC 12/09/24 00:52 Nitroglycerin (Ntrostat Sublingual) 0.4 mg Q5MINP PRN SL FOR CHEST PAIN 12/08/24 22:15 Morphine Sulfate 2 mg Q30M PRN IV FOR CHEST PAIN 12/08/24 22:15 Cefepime HCl 50 ml @ 12.5 mls/hr Q12HR IV 12/09/24 10:00 Ipratropium [place] (Atrovent Medneb) 0.5 mg Q6HWA NEB 12/09/24 06:00 12/09/24 12:19 Furosemide (Lasix Injection) 40 mg DAILY IV 12/09/24 10:00 Pantoprazole Sodium (Protonix Tablet) 40 mg DAILY@0600 PO 12/09/24 06:00 12/09/24 05:40 Azithromycin 250 ml @ 125 mls/hr DAILY IV 12/10/24 10:00 Heparin Sodium/ Dextrose 250 ml @ 19.5 mls/hr [id number] IV 12/09/24 09:15 12/09/24 10:17 Review of Systems not obtained Vital Signs Vital Signs Date Time Temp Pulse Resp B/P (MAP) Pulse Ox O2 Delivery O2 Flow Rate FiO2 12/09/24 12:17 120 17 98 12/09/24 12:10 Oxymizer 10.0 12/09/24 12:10 N/A 12/09/24 05:00 97.8 148/97 (114) 97.8 Physical Exam mild dsitress s1 s2 tachycardic diffuse rhonchi abd obese Labs/Diagnostic Data Labs Test 12/09/24 06:55 12/09/24 04:05 12/08/24 23:02 12/08/24 22:27 Range/Units White Blood Count 13.2 H 4.4-10.8 10^3/uL Red Blood Count 4.40 4.0-5.20 10^6/uL Hemoglobin 11.7 L 12.2-16.2 g/dL Hematocrit 36.3 # 36.0-46.0 % Mean Corpuscular Volume 82.5 80.0-100.0 fL Mean Corpuscular Hemoglobin 26.6 L 28.0-32.0 pg Mean Corpuscular Hemoglobin Concent 32.2 32.0-36.0 g/dL Red Cell Distribution Width 21.1 H 11.8-14.3 % Platelet Count 273 140-450 10^3/uL Mean Platelet Volume 7.5 6.9-10.8 fL Neutrophils (%) (Auto) 84.1 H 37.0-80.0 % Lymphocytes (%) (Auto) 11.0 10.0-50.0 % Monocytes (%) (Auto) 4.7 0.0-12.0 % Eosinophils (%) (Auto) 0.0 0.0-7.0 % Basophils (%) (Auto) 0.2 0.0-2.0 % Neutrophils # (Auto) 11.1 H 1.6-8.6 10 ^3/uL Lymphocytes # (Auto) 1.4 0.4-5.4 10 ^3/uL Monocytes # (Auto) 0.6 0-1.3 10 ^3/uL Eosinophils # (Auto) 0 0-0.8 10 ^3/uL Basophils # (Auto) 0 0-0.2 10 ^3/uL Nucleated Red Blood Cells 1.3 % Prothrombin Time 15.1 H 9.3-11.8 sec Prothrombin Time INR 1.48 H 0.9-1.15 Activated Partial Thromboplast Time 26.6 24.5-34.5 SEC Lactic Acid Level 3.3 *H 0.4-2.0 mmol/L Magnesium Level 2.3 1.6-2.6 mg/dL Urine Color Light-yellow Yellow Urine Clarity Clear Clear Urine pH 5.0 5.0-9.0 Urine Specific [place] 1.013 1.001-1.035 Urine Protein Negative Negative Urine Ketones Negative Negative Urine Blood Negative Negative /uL Urine Nitrite Negative Negative Urine Bilirubin Negative Negative Urine Urobilinogen Normal Negative mg/dL Urine Leukocyte Esterase Negative Negative /uL Urine RBC <1 0 - 4 /hpf Urine Microscopic WBC 4 0-5 /HPF Urine Squamous Epithelial Cells None seen <5 /hpf Urine Renal Epithelial Cells Few None Seen /hpf Urine Bacteria None seen None Seen /hpf Urine Hyaline Casts Mod 0 - 2 /lpf Urine Glucose Normal Normal mg/dL Troponin I High Sensitivity 62 *H </=34 ng/L Blood Gas Specimen Type Arterial Blood Gas Sample Site Right radial Blood Gas Patient Temperature 37.0 Arterial Blood Date Drawn [id number] Arterial Blood pH 7.360 7.350-7.450 Arterial Blood Partial Pressure CO2 24.4 L 32.0-45.0 mmHg Arterial Blood Partial Pressure O2 68.5 L 83.0-108.0 mmHg Arterial Blood HCO3 13.5 L 21.0-28.0 mmol/L Arterial Blood Oxygen Saturation 89.5 L 94.0-98.0 % Arterial Blood Base Excess -10.2 L -2.0-3.0 mmol/L Arterial Blood Oxyhemoglobin 88.3 L 94.0-98.0 % Arterial Blood Carboxyhemoglobin 0.8 0.5-1.5 % Arterial Blood Methemoglobin 0.5 0.0-1.5 % Eloy Test Yes Blood Gas Total Hemoglobin 12.70 12.0-16.0 g/dL Blood Gas Liter Flow 9.00 Blood Gas Modality Mask - simple Blood Gas Spontaneous Rate 26 FiO2 % 45.0 Specimen Drawn By Emily nichols rt Test 12/08/24 17:14 12/08/24 05:40 Range/Units Sodium Level 140 136-145 mmol/L Potassium Level 5.0 3.5-5.1 mmol/L Chloride Level 107 98-107 mmol/L Carbon Dioxide Level 15 L 20-31 mmol/L Anion Gap 18 H 5-15 Blood Urea Nitrogen 59 H 9-23 mg/dL Creatinine 1.53 H 0.550-1.02 mg/dL Glomerular Filtration Rate Calc 36 >90 mL/min BUN/Creatinine Ratio 38.6 H 10.0-20.0 Serum Glucose 107 H 74-106 mg/dL Calcium Level 9.5 8.7-10.4 mg/dL Total Bilirubin 0.8 0.2-1.0 mg/dL Aspartate Amino Transferase (AST) 102 H 13-40 U/L Alanine Aminotransferase (ALT) 255 H 7-40 U/L Alkaline Phosphatase 218 H 46-116 U/L B-Type Natriuretic Peptide 1151.30 0-100 pg/mL Total Protein 6.7 5.7-8.2 g/dL Albumin 4.2 3.2-4.8 g/dL Influenza Type A Antigen Negative Negative Influenza Type B Antigen Negative Negative SARS-CoV-2 Antigen (Rapid) Negative NEGATIVE Assessment acute BL submassive PE DVT morbid obesity metastatic cancer hypoxia ckd tachycardia Plan/Recommendation ecg showed ST, Right axis, cta reviwed large PE bilateral recommend stat echo admit to icu recommend stat pulm consult consider tx to tertiary care center for thrombectomy pt likely not stable vs possible tpa tx pressors as needed prognosis is guarded/ poor spoke to dr young immediately during ct and images reviewed real time during study 90 mins critical care time spent Plan discussed with: Patient KWANSHAHRAM MD Dec 09, 2024 12:35
--- NOTE | 2024-12-09 12:37 | DVH ---
CT angio of the chest INDICATION: R/O PE Technique: Serial axial images were performed through the chest using 3 mm slice thickness and interv al following the administration of 100 mL of Omnipaque 350 IV contrast. Multiplanar MIP reconstructio n imaging was provided and reviewed at the workstation FINDINGS: Focal infiltrates are seen both upper lung zones and in the left lower lobe. Focal consolidation chantal gula. Heart size enlarged especially the right atrium without pericardial effusion. There is a large filling defect in the right main pulmonary artery. There is also a smaller pulmonary embolus at the bifurcation of the left main pulmonary artery into upper and lower lobe branches No pleural effusions No enlarged lymph nodes Images of the upper abdomen reveal no bony abnormalities. Degenerative changes of the thoracic spine . IMPRESSION: 1. Large right pulmonary artery embolism with signs of right heart strain. Smaller pulmonary emboli at the bifurcation of the left main pulmonary artery into upper and lower lobe branche 2. Critical findings were called to Dr. Larios at 1233hr [facility] Computed Tomographic Radiation Dosimetry Report: Total CTDI vol = 28 mGy Total DLP = 987 mGy-cm All CT scans at this medical facility are performed using dose modulation techniques as appropriate t o a performed exam including the following: Automated exposure control was utilized; adjustment of the MA and/or KvP according to patient size; a nd use of iterative reconstruction technique.
--- NOTE | 2024-12-09 13:28 | DVH ---
EXAM: XY CHEST XRAY 1 VIEW HISTORY: Central line plced TECHNIQUE: 1 view of the chest COMPARISON: XY CHEST XRAY 1 VIEW on DOS: 12/08/24 FINDINGS/IMPRESSION: LUNGS: Hazy pulmonary alveolar opacity of the liver area of the left upper lobe. Horizontal coarse op acity of the left mid lung zone. No interval pneumothorax. MEDIASTINUM: Normal cardiac size BONES: No acute osseous abnormality . Prior anterior cervical discectomy and fusion OTHER: Left axillary chest wall surgical clips. Right internal jugular central venouscatheter.
[2024-12-09] MEDS: ALTEPLASE (RECOMBINANT) 100 MG in STERILE WATER 100 ML IV ONE (14:15)
[2024-12-09] MEDS ORDERED: HEPARIN DRIP/D5W 100UNITS/ML 250 ML IV SCH (15:30)
--- NOTE | 2024-12-09 15:51 | DVHPN2 ---
Assessment/Plan Assessment/Plan Subjective 74 F with hx of breast ca s/p partial mastectomy with pleural mets, HTN, PLEF, DVT, admitted for b/l PE seen today, tachycardic, tachypneic, hypoxic on oximyzer, s/p TPA Objective AOx4 increased WOB on 10L oximyzer b/l coarse rhonchi s1 s2 tachycardic abdomen soft nontender LE edema b/l warm labs ekg imaging reviewed POCUS done, TDS, mcconnel sign present, RV enlarged, IVC dilated but collapsible with inspiration, TAPSE 0.8cm Assessment & Plan B/L obstructive PE b/l DVT obstructive shock hypoxic RF ISACC VMN metastatic breast cancer transaminitis obesity pHTN NIDDM HTN Lactic acidosis s/p TPA, c/w drip, followed by heparin drip no blood draw 24 hr cardio reccs appreciated hold diuresis ISS hold home mets trend cr s/p contrast gentle hydration follow culture pulm consult diet cardiac dvt ppx on heparin gi ppx protonix poor prognosis condition critical DNR DNI 45 minutes spent discussing treatment options and intubation, patient understood risk of TPA and no intubation and would proceed crit care time 120 minutes Plan discussed with: Patient My Orders Orders - CATALINO DELATORRE MD Procedure Category Date Status Time Heparin Drip/D5w PHA 12/09/24 In Process 100units/Ml 09:15 * Cardiology Consult CONS 12/09/24 Transmitted 09:[address] 12/09/24 Resulted Contrast 09:57 Chest Xray 1 View XY 12/09/24 Resulted 13:04 Insert Butterfield Catheter [facility] 12/09/24 In Process 13:04 Platelet Monitoring [facility] 12/09/24 In Process 15:30 Vte Protocol Initiated [facility] 12/09/24 In Process 15:30 Discontinue All Im [facility] 12/09/24 In Process Injections 13:30 PTPTT LAB 12/09/24 Logged 13:30 Complete Blood Count LAB 12/09/24 Logged 13:30 *Consult CONS 12/09/24 Transmitted 13:30 Date of Service: Dec 09, 2024 Billing Provider: CATALINO DELATORRE MD Common Visit Codes: [id number] CARE 30-74 MIN, [id number] CARE-EACH +30MIN Secondary Visit Codes: [id number] CARE PLAN 30 MINUTES, [id number] CARE PLAN ADDL 30MIN CATALINO DELATORRE MD Dec 09, 2024 15:51
--- NOTE | 2024-12-09 15:55 | DVHNC2 ---
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 Indication: Hypotension, Inability to obtain IV [employer] performed hand hygien: Yes Maximal sterile barrier precau: Mask/Eye shield, Sterile gown, Cap, Sterlie gloves, Large sterlie drape Skin Preparation: Chlorhexidine gluconate Skin preparation completely dr: Yes Insertion site: Right, Internal jugular Central line catheter type: [id number] dialysis Number of lumens: 3 Post Assessment: Chest X-Ray, Proper placement, No Pneumothorax Informed consent obtained: Yes Risks/benefits/alt described: Yes Date of Service: Dec 09, 2024 Billing Provider: CATALINO DELATORRE MD Common Visit Codes: PROCEDURE ONLY Procedure Codes: [id number] NON-TUNNEL CV CATH CATALINO DELATORRE MD Dec 09, 2024 15:55
--- NOTE | 2024-12-09 16:39 | PRN ---
Misceleneous Note Note Note called daughter amber [phone] re GOC and status update. patient want to discuss code status and GOC with daughter present. will do family conference tomorrow at 10am CATALINO DELATORRE MD Dec 09, 2024 16:39
[2024-12-09] MEDS: CEFEPIME 1GM/50ML 50 ML IV SCH (17:13)
[2024-12-09 17:18] LABS: Hematocrit 39.5 % (36.0-46.0); Hemoglobin 12.3 g/dL (12.2-16.2); Mean Corpuscular Hemoglobin 26.6 pg (28.0-32.0); Mean Corpuscular Volume 85.3 fL (80.0-100.0)
[2024-12-09] MEDS ORDERED: CLON0.5T3 PO (17:20)
[2024-12-09] MEDS ORDERED: LETR2.5T PO (17:21)
[2024-12-09] MEDS ORDERED: CHOL20007 OR (17:22)
[2024-12-09] MEDS ORDERED: LISI10TA34 PO (17:24)
[2024-12-09 17:43] LABS: INR 1.84 (0.9-1.15); Partial Thromboplastin Time 60.5 SEC (24.5-34.5); Prothrombin Time 18.4 sec (9.3-11.8)
[2024-12-09] MEDS: ALTEPLASE ONE (18:06)
--- NOTE | 2024-12-09 18:27 | CONS ---
Pharmacy Clinical Information: OK TO RE-START HEPARIN DRIP AT RATE 1950 UNITS/HR PER APTT OF 60.5 (THERAPEUTIC) NEXT APTT DRAW SCHEDULED AT MIDNIGHT PER RX PROTOCOL JAZMIN PACHECO PHARMACIST Dec 09, 2024 18:27
[2024-12-09 19:38] LABS: Anisocytosis Slight; Total Cells Counted 100.0 (100)
[2024-12-09] MEDS: ACETAMINOPHEN 325 MG TAB PO PRN (21:50)
--- NOTE | 2024-12-09 22:27 | DVHSR ---
APPROVED REPORT EXAM: Two-dimensional and M-mode echocardiogram with Doppler and color Doppler. Blood Pressure: 148/97 mmHg INDICATION Submassive PE, assess RV RISK FACTORS Height: 5'4", Weight: 207 DIMENSIONS LVDd3.0 (3.8-5.7cm)LA (2D) (1.9-4.0cm)Aortic Root3.3 (2.0-3.7cm) LVDs2.3 (2.5-4.0cm)LA (MM) (1.9-4.0cm)Aortic Cusp Exc1.9 (1.5-2.0cm) EF (%) 50.0 (55-70%)Rt. Atrium5.3 (1.9-4.0cm)Asc. Aorta cm IVSd1.3 (0.7-1.1cm)RV (D)5.5 (1.8-2.4cm) PWd1.2 (0.7-1.1cm) Mitral Valve MitralMitral Stenosis E/A ratio0.02D MVAcm2 Aortic Valve Aortic ValveAortic Stenosis V10.79m/Jada Mean GR.2mmHg V20.96m/Jada Peak GR.4mmHg LVOT Diameter2.2 (1.8-2.4cm)Doppler AVA3.13cm2 Pulmonic Valve V20.30m/s Tricuspid Valve TR Velocity5.22m/s [id number] Other Information Technically limited study due to body habitus, patient sitting up short of breath. Conclusion lvef 50% flattened D shaped septum massive RV enlargement and RV failure severe pulm htn, PASP >110 mmhg severe tricuspid regurg dilated IVC
--- NOTE | 2024-12-09 22:46 | DVHINCON2 ---
Date Seen: Dec 09, [address] Varela Reason for Consultation Acute hypoxic respiratory failure. History of Present Illness A 74-year-old woman with PMHx of metastatic breast cancer w/ mets to pleura, hypertension. hyperlipidemia, pleural effusion, pulmonary hypertension and new- onset DVT in July who presents to ED today with progressive worsening SOB, fatigue, generalized weakness, and bilateral LE edema. SOB occurs at rest and is worse with exertion. No associated CP, fever, chills, or sputum production. Reports requiring increasing amounts of home O2, which prompted the visit. Patient was admitted for further care. Pulmonary consultation is requested for evaluation and management of acute hypoxic respiratory failure. Review of Systems: 14-point review of systems negative unless otherwise noted above. Past Medical History: Breast cancer diagnosed in 2009 with recent metastasis to pleural cavity. Following with Dr. Trinh Hypertension. Hyperlipidemia. Pleural effusion. Pulmonary hypertension. New onset DVT in July. Prescribed oral anticoagulation, but reports only taking for 30 days and has not been on it for the past 3 mo. Past Surgical History: Partial mastectomy. Medications: Reviewed. Allergies: No known drug allergies. Family History: No family history of premature CAD. No family history of lung disorders. Social History: Nonsmoker. No alcohol or illicit drug use. Family History: FH: dementia G8 MOTHER Allergies: Coded Allergies: NO KNOWN ALLERGIES (Unverified , 08/29/09) Home Meds Active Scripts Rivaroxaban (Xarelto Starter Pack 15 & 20 mg) 1 Tab Tab, 1 TAB PO BID for 21 Days, #42 TAB 15 mg p.o. twice a day for 21 days then 20 mg p.o. daily Prov:VICENTE MARQUIS TITLE AGENT 08/16/24 Reported Medications Lisinopril (Lisinopril) 10 Mg Tab, 10 MG PO DAILY for 30 Days, MG 12/09/24 Cholecalciferol (VITAMIN D3) 2,000 Unit Tab, 2000 UNIT OR DAILY, TAB 12/09/24 Letrozole (Femara) 2.5 Mg Tab, 2.5 MG PO DAILY, TAB 12/09/24 Clonazepam (KlonoPIN TABLET) 0.5 Mg Tb, 1 TAB PO BID, #60 TAB 1 Refill 12/09/24 Oxycodone Hcl (OXYCODONE HCL) 5 Mg Tb, 15 MG GT, TAB 08/06/24 Cholecalciferol (VITAMIN D3) 2,000 Unit Tab, 1 TAB PO DAILY, #30 TAB 5 Refills 08/06/24 Amlodipine Besylate (Amlodipine Besylate) 10 Mg Tab, 1 TAB PO DAILY, #30 TAB 5 Refills 08/06/24 Tizanidine Hydrochloride (Zanaflex) 4 Mg Cap, 1 CAP PO QPM, #30 CAP 08/06/24 Simvastatin (Simvastatin) 20 Mg Tab, 1 TAB PO QPM, #30 TAB 5 Refills 08/06/24 Carbamazepine (Carbamazepine) 200 Mg Tab, 1 TAB PO BID, #60 TAB 1 Refill 08/06/24 Omeprazole (Gnp Omeprazole) 20 Mg Tab, 1 TAB PO DAILY, #90 TAB 1 Refill 08/06/24 Meloxicam (Meloxicam) 7.5 Mg Tab, 1 TAB PO DAILY, #30 TAB 2 Refills 08/06/24 Celecoxib (CeleBREX CAPSULE) 100 Mg Cp, 1 CAP PO BID, #60 CAP 3 Refills 08/06/24 Metformin Hydrochloride (Metformin Hcl Er) 500 Mg Tab, 1 TAB PO DAILY, #90 TAB 3 Refills 08/06/24 Current Medications Current Medications Medications (Trade) Dose Ordered Sig/Edouard Route PRN Reason Start Time Stop Time Status Last Admin Cefepime HCl 50 ml @ 12.5 mls/hr Q12HR IV 12/09/24 10:00 12/09/24 21:50 Ipratropium [place] (Atrovent Medneb) 0.5 mg Q6HWA NEB 12/09/24 06:00 12/09/24 18:10 Furosemide (Lasix Injection) 40 mg DAILY IV 12/09/24 10:00 12/09/24 15:55 DC Pantoprazole Sodium (Protonix Tablet) 40 mg DAILY@0600 PO 12/09/24 06:00 12/09/24 15:55 DC 12/09/24 05:40 Azithromycin 250 ml @ 125 mls/hr DAILY IV 12/10/24 10:00 Heparin Sodium/ Dextrose 250 ml @ 19.5 mls/hr [id number] IV 12/09/24 09:15 12/09/24 18:43 Heparin Sodium/ Dextrose 250 ml @ 16.902 mls/ hr [id number] IV 12/09/24 15:30 UNV Pantoprazole Sodium (Protonix) 40 mg DAILY IV 12/10/24 10:00 Acetaminophen (Tylenol Tablet) 650 mg Q4HP PRN PO PAIN SCALE 1-3 OR TEMP>100.4 12/09/24 21:15 12/09/24 21:50 Vital Signs Vital Signs Date Time Temp Pulse Resp B/P (MAP) Pulse Ox O2 Delivery O2 Flow Rate FiO2 12/09/24 18:11 113 16 99 30.0 70 12/09/24 17:45 12/09/24 17:10 Non-Rebreather 12/09/24 17:10 97.3 97.3 Physical Exam Gen.: Patient lying in bed in no apparent distress. On supplemental oxygen. Head: Normocephalic, atraumatic. Eyes: EOMI/PERRLA. Ears: Normal hearing. Normal anatomy. Neck/trachea: Trachea midline, supple. Nose: Normal external anatomy. Mouth: Moist mucous membranes. Chest: Decreased air entry bilaterally. No wheezing or rhonchi. Cardiovascular: Positive S1, positive S2. Regular rate and rhythm. Abdomen: Positive bowel sounds in all 4 quadrants. Soft, non-tender, non- distended. : Deferred. Rectal: Deferred. Skin: Warm, dry. Intact. Extremities: 2+ radial pulses bilaterally. No lower extremity edema. Neuro: Awake, alert, oriented x3. No gross motor or sensory deficits. Cranial nerves II through XII intact. Gait not assessed. Labs/Diagnostic Data Labs Test 12/09/24 17:04 12/09/24 06:55 12/09/24 04:05 12/08/24 23:02 Range/Units White Blood Count 19.8 #H 4.4-10.8 10^3/uL Red Blood Count 4.63 4.0-5.20 10^6/uL Hemoglobin 12.3 12.2-16.2 g/dL Hematocrit 39.5 36.0-46.0 % Mean Corpuscular Volume 85.3 80.0-100.0 fL Mean Corpuscular Hemoglobin 26.6 L 28.0-32.0 pg Mean Corpuscular Hemoglobin Concent 31.1 L 32.0-36.0 g/dL Red Cell Distribution Width 21.8 H 11.8-14.3 % Platelet Count 243 140-450 10^3/uL Mean Platelet Volume 7.3 6.9-10.8 fL Neutrophils (%) (Auto) 37.0-80.0 % Lymphocytes (%) (Auto) 10.0-50.0 % Monocytes (%) (Auto) 0.0-12.0 % Basophils (%) (Auto) 0.0-2.0 % Neutrophils # (Auto) 1.6-8.6 10 ^3/uL Lymphocytes # (Auto) 0.4-5.4 10 ^3/uL Monocytes # (Auto) 0-1.3 10 ^3/uL Differential Total Cells Counted 100.0 100 Neutrophils % (Manual) 90 H 37.0-80.0 Band Neutrophils % (Manual) 0 Lymphocytes % (Manual) 5 L 10.0-50.0 Monocytes % (Manual) 5 0-12 Eosinophils % (Manual) 0 0-7 Basophils % (Manual) 0 0.0-2.0 Metamyelocytes % (manual) 0 Myelocytes % (Manual) 0 Promyelocytes % (Manual) 0 Blast Cells % (Manual) 0 Reactive Lymphocytes 0 Platelet Estimate Adequate Anisocytosis (manual) Slight Prothrombin Time 18.4 H 9.3-11.8 sec Prothrombin Time INR 1.84 H 0.9-1.15 Activated Partial Thromboplast Time 60.5 H 24.5-34.5 SEC Eosinophils (%) (Auto) 0.0 0.0-7.0 % Eosinophils # (Auto) 0 0-0.8 10 ^3/uL Basophils # (Auto) 0 0-0.2 10 ^3/uL Nucleated Red Blood Cells 1.3 % Lactic Acid Level 3.3 *H 0.4-2.0 mmol/L Magnesium Level 2.3 1.6-2.6 mg/dL Urine Color Light-yellow Yellow Urine Clarity Clear Clear Urine pH 5.0 5.0-9.0 Urine Specific [place] 1.013 1.001-1.035 Urine Protein Negative Negative Urine Ketones Negative Negative Urine Blood Negative Negative /uL Urine Nitrite Negative Negative Urine Bilirubin Negative Negative Urine Urobilinogen Normal Negative mg/dL Urine Leukocyte Esterase Negative Negative /uL Urine RBC <1 0 - 4 /hpf Urine Microscopic WBC 4 0-5 /HPF Urine Squamous Epithelial Cells None seen <5 /hpf Urine Renal Epithelial Cells Few None Seen /hpf Urine Bacteria None seen None Seen /hpf Urine Hyaline Casts Mod 0 - 2 /lpf Urine Glucose Normal Normal mg/dL Troponin I High Sensitivity 62 *H </=34 ng/L Test 12/08/24 22:27 12/08/24 17:14 12/08/24 05:40 Range/Units Blood Gas Specimen Type Arterial Blood Gas Sample Site Right radial Blood Gas Patient Temperature 37.0 Arterial Blood Date Drawn [id number] Arterial Blood pH 7.360 7.350-7.450 Arterial Blood Partial Pressure CO2 24.4 L 32.0-45.0 mmHg Arterial Blood Partial Pressure O2 68.5 L 83.0-108.0 mmHg Arterial Blood HCO3 13.5 L 21.0-28.0 mmol/L Arterial Blood Oxygen Saturation 89.5 L 94.0-98.0 % Arterial Blood Base Excess -10.2 L -2.0-3.0 mmol/L Arterial Blood Oxyhemoglobin 88.3 L 94.0-98.0 % Arterial Blood Carboxyhemoglobin 0.8 0.5-1.5 % Arterial Blood Methemoglobin 0.5 0.0-1.5 % Eloy Test Yes Blood Gas Total Hemoglobin 12.70 12.0-16.0 g/dL Blood Gas Liter Flow 9.00 Blood Gas Modality Mask - simple Blood Gas Spontaneous Rate 26 FiO2 % 45.0 Specimen Drawn By Emily nichols rt Sodium Level 140 136-145 mmol/L Potassium Level 5.0 3.5-5.1 mmol/L Chloride Level 107 98-107 mmol/L Carbon Dioxide Level 15 L 20-31 mmol/L Anion Gap 18 H 5-15 Blood Urea Nitrogen 59 H 9-23 mg/dL Creatinine 1.53 H 0.550-1.02 mg/dL Glomerular Filtration Rate Calc 36 >90 mL/min BUN/Creatinine Ratio 38.6 H 10.0-20.0 Serum Glucose 107 H 74-106 mg/dL Calcium Level 9.5 8.7-10.4 mg/dL Total Bilirubin 0.8 0.2-1.0 mg/dL Aspartate Amino Transferase (AST) 102 H 13-40 U/L Alanine Aminotransferase (ALT) 255 H 7-40 U/L Alkaline Phosphatase 218 H 46-116 U/L B-Type Natriuretic Peptide 1151.30 0-100 pg/mL Total Protein 6.7 5.7-8.2 g/dL Albumin 4.2 3.2-4.8 g/dL Influenza Type A Antigen Negative Negative Influenza Type B Antigen Negative Negative SARS-CoV-2 Antigen (Rapid) Negative NEGATIVE Microbiology Date/Time Source Procedure Growth Status 12/08/24 18:38 Blood Blood Culture - Preliminary NO GROWTH AFTER 24 HOURS OF INCUBATION. Resulted Assessment Impression: Acute hypoxic respiratory failure Dependence on supplemental oxygen Pulmonary embolism Deep vein thrombosis Sepsis 2/2 viral pneumonia Metastatic breast cancer, mets to pleura Obesity - BMI 35.5 Plan: Supplemental oxygen Currently on 10 LPM Oxymizer Titrate to keep O2 sats above 92%. Taper O2 as tolerated. Plan for tPA (Alteplase). Continue anticoagulation Neuro checks post TPA. Continue antibiotics Incentive spirometry Monitor renal function. Monitor electrolytes. Supplement as necessary. Monitor ins and outs. S/p central line placement by Dr. Larios. S/p Alteplase dose. Monitor neuro checks. Monitor hemoglobin Diet and lifestyle modifications for weight reduction Obesity complicates all care GI prophylaxis - Protonix. Prognosis: Poor given patient's multiple co-morbidities. Rest of plan per hospitalist and other consultants. Thank you, Dr. Varela, for allowing me to participate in this patient's care. Further recommendations will depend on the patient's clinical course. Please do not hesitate to contact me if you have any questions or concerns. This medical document was created using an electronic medical record system with VHT dictation system. Although these documentations are being carefully reviewed, there may still be some phonetic and typographical changes. The errors are purely typographical, due to imperfection on the software program, and do not reflect any compromise in the patient's medical care. Plan discussed with: Patient, Other (RASHAUN Parekh/) Date of Service: Dec 09, 2024 Billing Provider: SUDEEP VARELA MD Common Visit Codes: [id number] INP/OBS CARE (HIGH) SUDEEP VARELA MD Dec 09, 2024 22:46
--- NOTE | 2024-12-09 23:26 | DVHPN2 ---
Subjective DOS: 12/09/2024 Eyes: No Pain, No Vision change, No Conjunctivae inflammation, No Eyelid inflammation, No Other, No Redness ENT: No Ear pain, No Ear discharge, No Nose pain, No Nose discharge, No Nose congestion, No Mouth pain, No Mouth swelling, No Throat pain, No Throat swelling, No Other Cardiovascular: Edema Respiratory: Shortness of breath, SOB with excertion Gastrointestinal: No Nausea, No Vomiting, No Abdominal Pain, No Diarrhea, No Constipation, No Melena, No Hematochezia, No Other Genitourinary: No Dysuria, No Frequency, No Incontinence, No Hematuria, No Retention, No Other Musculoskeletal: No other, No neck pain, No shoulder pain, No arm pain, No back pain, No hand pain, No leg pain, No foot pain Skin: No Rash, No Lesions, No Jaundice, No Bruising, No Other Objective Vitals Vital Signs Date Time Temp Pulse Resp B/P (MAP) Pulse Ox O2 Delivery O2 Flow Rate FiO2 12/09/24 22:14 106 17 100 30.0 55 12/09/24 17:45 12/09/24 17:10 Non-Rebreather 12/09/24 17:10 97.3 97.3 Intake/Output Intake and Output 12/09/24 07:00 Intake Total 490 ml Balance 490 ml Intake Oral 240 ml IV Total 250 ml # Voids 1 Medications Current Medications Medications Dose Ordered Sig/Edouard Route Start Time Stop Time Status Last Admin Dose Admin Nitroglycerin 0.4 mg Q5MINP PRN SL 12/08/24 22:15 Morphine Sulfate 2 mg Q30M PRN IV 12/08/24 22:15 Cefepime HCl 50 ml @ 12.5 mls/hr Q12HR IV 12/09/24 10:00 12/09/24 21:50 12.5 MLS/HR Ipratropium [place] 0.5 mg Q6HWA NEB 12/09/24 06:00 12/09/24 18:10 0.5 MG Azithromycin 250 ml @ 125 mls/hr DAILY IV 12/10/24 10:00 Heparin Sodium/ Dextrose 250 ml @ 19.5 mls/hr [id number] IV 12/09/24 09:15 12/09/24 18:43 19.5 MLS/HR Heparin Sodium/ Dextrose 250 ml @ 16.902 mls/ hr [id number] IV 12/09/24 15:30 UNV Pantoprazole Sodium 40 mg DAILY IV 12/10/24 10:00 Acetaminophen 650 mg Q4HP PRN PO 12/09/24 21:15 12/09/24 21:50 650 MG Laboratory Results Laboratory Tests 12/08/24 17:14 12/09/24 17:04 Chemistry Test 12/09/24 06:55 Magnesium Level 2.3 mg/dL (1.6-2.6) Coagulation Test 12/09/24 06:55 12/09/24 17:04 Prothrombin Time 15.1 sec (9.3-11.8) H 18.4 sec (9.3-11.8) H Prothrombin Time INR 1.48 (0.9-1.15) H 1.84 (0.9-1.15) H Activated Partial Thromboplast Time 26.6 SEC (24.5-34.5) 60.5 SEC (24.5-34.5) H Urinalysis Test 12/09/24 04:05 Urine Color Light-yellow (Yellow) Urine Clarity Clear (Clear) Urine pH 5.0 (5.0-9.0) Urine Specific [place] 1.013 (1.001-1.035) Urine Protein Negative (Negative) Urine Ketones Negative (Negative) Urine Blood Negative /uL (Negative) Urine Nitrite Negative (Negative) Urine Bilirubin Negative (Negative) Urine Urobilinogen Normal mg/dL (Negative) Urine Leukocyte Esterase Negative /uL (Negative) Urine RBC <1 /hpf (0 - 4) Urine Microscopic WBC 4 /HPF (0-5) Urine Squamous Epithelial Cells None seen /hpf (<5) Urine Renal Epithelial Cells Few /hpf (None Seen) Urine Bacteria None seen /hpf (None Seen) Urine Hyaline Casts Mod /lpf (0 - 2) Urine Glucose Normal mg/dL (Normal) Microbiology Microbiology Date/Time Source Procedure Growth Status 12/08/24 18:38 Blood Blood Culture - Preliminary NO GROWTH AFTER 24 HOURS OF INCUBATION. Resulted Assessment/Plan My Orders Orders - SUDEEP VARELA MD Procedure Category Date Status Time Oxygen By High-Flow RT 12/09/24 Transmitted 18:11 Date of Service: Dec 09, 2024 Billing Provider: SUDEEP VARELA MD Common Visit Codes: [id number] INP/OBS CARE(HIGH), [id number] CARE 30-74 MIN SUDEEP VARELA MD Dec 09, 2024 23:26
[2024-12-10] VITALS (92 sets, daily range): BP systolic 101–144; BP diastolic 47–77; PULSE 92–115; RESP 11–30; TEMP 97.5–98.4; O2SAT 88–100
[2024-12-10 01:38] LABS: INR 2.02 (0.9-1.15); Prothrombin Time 20.0 sec (9.3-11.8)
[2024-12-10 01:39] LABS: Partial Thromboplastin Time > 139.0 SEC (24.5-34.5)
[2024-12-10] MEDS: HEPARIN DRIP/D5W 100UNITS/ML 250 ML IV SCH ×2 (02:52→12:33)
[2024-12-10 04:49] LABS: Hematocrit 31.8 % (36.0-46.0); Hemoglobin 10.3 g/dL (12.2-16.2); Mean Corpuscular Hemoglobin 26.2 pg (28.0-32.0); Mean Corpuscular Volume 81.0 fL (80.0-100.0); Nucleated Red Blood Cells % 1.6 %
--- NOTE | 2024-12-10 09:45 | DVHPN2 ---
Progress Note Date Seen: Dec 10, 2024 Medical Necessity Reason Pt with a Central, PICC or Fol: No Subjective Other Systems: sp tpa yesterday feels little better hgb 10 Objective vital signs Vital Sign Date Time Temp Pulse Resp B/P (MAP) Pulse Ox O2 Delivery O2 Flow Rate FiO2 12/10/24 07:30 108 14 Hi-Flow Heated NC+ 30 70 70 12/10/24 06:45 132/72 (92) 98 12/10/24 04:00 98.4 98.4 Total Intake and Output 12/09/24 12/09/24 12/10/24 15:00 23:00 07:00 Intake Total 1347.5 ml 955.0 ml Output Total 650 ml 725 ml Balance 697.5 ml 230.0 ml medications Current Medications Medications Dose Ordered Sig/Edouard Route Start Time Stop Time Status Last Admin Dose Admin Nitroglycerin 0.4 mg Q5MINP PRN SL 12/08/24 22:15 Morphine Sulfate 2 mg Q30M PRN IV 12/08/24 22:15 Cefepime HCl 50 ml @ 12.5 mls/hr Q12HR IV 12/09/24 10:00 12/09/24 21:50 12.5 MLS/HR Ipratropium [place] 0.5 mg Q6HWA NEB 12/09/24 06:00 12/10/24 05:55 0.5 MG Azithromycin 250 ml @ 125 mls/hr DAILY IV 12/10/24 10:00 Heparin Sodium/ Dextrose 250 ml @ 16.902 mls/ hr [id number] IV 12/09/24 15:30 UNV Pantoprazole Sodium 40 mg DAILY IV 12/10/24 10:00 Acetaminophen 650 mg Q4HP PRN PO 12/09/24 21:15 12/09/24 21:50 650 MG Heparin Sodium/ Dextrose 250 ml @ 16.5 mls/hr [id number] IV 12/10/24 02:45 12/10/24 06:37 16.5 MLS/HR Examination: GENERAL:Abnormal, HEENT:Abnormal, LUNGS:Abnormal, CVS:Abnormal, ABDOMEN:Abnormal laboratory and microbiology Laboratory Tests 12/10/24 03:51 Test 12/10/24 09:27 Range/Units Serum Glucose Pending Microbiology Date/Time Source Procedure Growth Status 12/09/24 04:05 Voided Urine Urine Culture - Preliminary Resulted 12/08/24 18:38 Blood Blood Culture - Preliminary NO GROWTH AFTER 24 HOURS OF INCUBATION. Resulted Problem List/Assessment/Plan Problem List/Assessment/Plan submassive PE dvt breast cancer morbid obesity shock ckd s/p tpA given, heparin gtt possible repeat cta to assess clot burden prn diuretics supplemental o2 watch for bleeding 40 mins critical care time spent Plan discussed with: Patient My Orders My Orders Orders - SHAHRAM KWAN MD Procedure Category Date Status Time Echo 2d Mode Cardiac US 12/09/24 Resulted DOP 12:36 Date of Service: Dec 10, 2024 Billing Provider: SHAHRAM KWAN MD Common Visit Codes: NOT BILLABLE SHAHRAM KWAN MD Dec 10, 2024 09:45
[2024-12-10 10:02] LABS: Alanine Aminotransferase 268 U/L (7-40); Albumin 3.1 g/dL (3.2-4.8); Alkaline Phosphatase 165 U/L (46-116); Anion Gap 11 (5-15); BUN/Creatinine Ratio 31.3 (10.0-20.0); Bilirubin, Total 0.7 mg/dL (0.2-1.0); Blood Urea Nitrogen 36 mg/dL (9-23); Calcium 8.3 mg/dL (8.7-10.4); Carbon Dioxide 22 mmol/L (20-31); Chloride 106 mmol/L (98-107); Glucose 170 mg/dL (74-106); Potassium 3.5 mmol/L (3.5-5.1); Sodium 139 mmol/L (136-145); Total Protein 5.1 g/dL (5.7-8.2)
--- NOTE | 2024-12-10 10:40 | DVHPN2 ---
Assessment/Plan Assessment/Plan Subjective 74 F with hx of breast ca s/p partial mastectomy with pleural mets, HTN, PLEF, DVT, admitted for b/l PE seen today, s/p TPA, improved, have family conf today, they will discus re goals of care. plan for repeat ctpe tomorrow. Objective AOx4 increased WOB on 10L oximyzer b/l coarse rhonchi s1 s2 tachycardic abdomen soft nontender LE edema b/l warm labs ekg imaging reviewed POCUS done, TDS, mcconnel sign present, RV enlarged, IVC dilated but collapsible with inspiration, TAPSE 0.8cm Assessment & Plan B/L obstructive PE b/l DVT obstructive shock hypoxic RF ISACC VMN metastatic breast cancer transaminitis obesity pHTN NIDDM HTN Lactic acidosis s/p TPA, c/w drip, followed by heparin drip no blood draw 24 hr cardio reccs appreciated hold diuresis ISS hold home mets trend cr s/p contrast follow culture pulm consult ctpe repeat tomorrow diet cardiac dvt ppx on heparin gi ppx protonix poor prognosis condition critical DNR DNI 45 minutes spent discussing treatment options and intubation, patient understood risk of TPA and no intubation and would proceed 35 minutes with family discussion today re goals of care crit care time 55 minutes Plan discussed with: Patient, Daughter My Orders Orders - CATALINO DELATORRE MD Procedure Category Date Status Time Chest Xray 1 View XY 12/09/24 Resulted 13:04 Insert Butterfield Catheter [facility] 12/09/24 In Process 13:04 Platelet Monitoring [facility] 12/09/24 In Process 15:30 Vte Protocol Initiated [facility] 12/09/24 In Process 15:30 Discontinue All Im [facility] 12/09/24 In Process Injections 13:30 *Consult CONS 12/09/24 Transmitted 13:30 Pantoprazole PHA 12/10/24 In Process (Protonix) 10:00 Communication Order ORDERS 12/09/24 Transmitted 15:53 Cardiac DIET 12/09/24 Transmitted Diet-2gna,Lofat,Lochol Dinner Mrsa Screen STACI 12/09/24 In Process 16:34 Heparin Drip/D5w PHA 12/10/24 In Process 100units/Ml 02:45 PTPTT LAB 12/10/24 In Process 08:45 Heparin Per Pharmacy [facility] 12/10/24 In Process Protocol 02:06 Ceftriaxone Ivpb PHA 12/11/24 Transmitted Rocephin 09:00 Date of Service: Dec 10, 2024 Billing Provider: CATALINO DELATORRE MD Common Visit Codes: [id number] CARE 30-74 MIN Secondary Visit Codes: [id number] CARE PLAN 30 MINUTES, [id number] CARE PLAN ADDL 30MIN CATALINO DELATORRE MD Dec 10, 2024 10:40
[2024-12-10 10:57] LABS: INR 1.97 (0.9-1.15); Prothrombin Time 19.5 sec (9.3-11.8)
[2024-12-10] MEDS: PANTOPRAZOLE 40 MG/10 ML VIAL INJ IV SCH (11:15)
[2024-12-10] MEDS: AZITHROMYCIN 500MG/ 250ML 250 ML IV SCH (11:15)
[2024-12-10 11:16] LABS: Partial Thromboplastin Time > 139.0 SEC (24.5-34.5)
--- NOTE | 2024-12-10 11:28 | CONS ---
Pharmacy Clinical Information: HEPARIN DRIP, DVT PROTOCOL @0903 APTT >139 HOLD HEPARIN DRIP FOR 1 HR, RESTART HEPARIN DRIP AT RATE 1350 UNITS/HR @ 1220 NEXT APTT DRAW SCHEDULED @1830 PER RX PROTOCOL CONFIRMED AND READ BACK WITH [facility] RESIDENT Dec 10, 2024 11:28
[2024-12-10] MEDS: IOHEXOL 350 MG/ML 100ML IJ ONE ×2 (14:21)
[2024-12-10] MEDS: FUROSEMIDE 20 MG/2 ML VIAL IV ONE (14:42)
[2024-12-10 19:48] LABS: INR 1.74 (0.9-1.15); Prothrombin Time 17.5 sec (9.3-11.8)
[2024-12-10 19:57] LABS: Partial Thromboplastin Time > 139.0 SEC (24.5-34.5)
--- NOTE | 2024-12-10 22:54 | DVHPN2 ---
Subjective DOS: 12/09/2024 Patient seen and examined at bedside. Remains on supplemental oxygen Overnight events reviewed. Changes from previous H/P or p: No Changes Eyes: No Pain, No Vision change, No Conjunctivae inflammation, No Eyelid inflammation, No Other, No Redness ENT: No Ear pain, No Ear discharge, No Nose pain, No Nose discharge, No Nose congestion, No Mouth pain, No Mouth swelling, No Throat pain, No Throat swelling, No Other Cardiovascular: Edema Respiratory: Shortness of breath, SOB with excertion Gastrointestinal: No Nausea, No Vomiting, No Abdominal Pain, No Diarrhea, No Constipation, No Melena, No Hematochezia, No Other Genitourinary: No Dysuria, No Frequency, No Incontinence, No Hematuria, No Retention, No Other Musculoskeletal: No other, No neck pain, No shoulder pain, No arm pain, No back pain, No hand pain, No leg pain, No foot pain Skin: No Rash, No Lesions, No Jaundice, No Bruising, No Other Objective Vitals Vital Signs Date Time Temp Pulse Resp B/P (MAP) Pulse Ox O2 Delivery O2 Flow Rate FiO2 12/10/24 22:00 112 18 96 30.0 40 12/10/24 18:44 Nasal Cannula 12/10/24 18:00 123/63 (83) 12/10/24 16:00 97.8 97.8 Intake/Output Intake and Output 12/10/24 07:00 Intake Total 2319.0 ml Output Total 1375 ml Balance 944.0 ml Intake Oral 1900 ml IV Total 419.0 ml Output Urine Total 1375 ml Exam Gen.: Patient lying in bed in no apparent distress. On supplemental oxygen. Head: Normocephalic, atraumatic. Eyes: EOMI/PERRLA. Ears: Normal hearing. Normal anatomy. Neck/trachea: Trachea midline, supple. Nose: Normal external anatomy. Mouth: Moist mucous membranes. Chest: Decreased air entry bilaterally. No wheezing or rhonchi. Cardiovascular: Positive S1, positive S2. Regular rate and rhythm. Abdomen: Positive bowel sounds in all 4 quadrants. Soft, non-tender, non- distended. : Deferred. Rectal: Deferred. Skin: Warm, dry. Intact. Extremities: 2+ radial pulses bilaterally. No lower extremity edema. Neuro: Awake, alert, oriented x3. No gross motor or sensory deficits. Cranial nerves II through XII intact. Gait not assessed. Medications Current Medications Medications Dose Ordered Sig/Edouard Route Start Time Stop Time Status Last Admin Dose Admin Nitroglycerin 0.4 mg Q5MINP PRN SL 12/08/24 22:15 Morphine Sulfate 2 mg Q30M PRN IV 12/08/24 22:15 Ipratropium [place] 0.5 mg Q6HWA NEB 12/09/24 06:00 12/10/24 18:43 0.5 MG Azithromycin 250 ml @ 125 mls/hr DAILY IV 12/10/24 10:00 12/10/24 11:15 125 MLS/HR Heparin Sodium/ Dextrose 250 ml @ 16.902 mls/ hr [id number] IV 12/09/24 15:30 UNV Pantoprazole Sodium 40 mg DAILY IV 12/10/24 10:00 12/10/24 11:15 40 MG Acetaminophen 650 mg Q4HP PRN PO 12/09/24 21:15 12/10/24 12:00 650 MG Ceftriaxone Sodium 50 ml @ 100 mls/hr DAILY@09 IV 12/11/24 09:00 Heparin Sodium/ Dextrose 250 ml @ 13.5 mls/hr [id number] IV 12/10/24 12:20 12/10/24 12:33 13.5 MLS/HR Laboratory Results Laboratory Tests 12/10/24 03:51 12/10/24 09:27 Chemistry Test 12/10/24 09:27 Albumin 3.1 g/dL (3.2-4.8) L Calcium Level 8.3 mg/dL (8.7-10.4) L Total Protein 5.1 g/dL (5.7-8.2) L Coagulation Test 12/10/24 00:17 12/10/24 09:03 12/10/24 18:49 12/10/24 22:06 Prothrombin Time 20.0 sec (9.3-11.8) H 19.5 sec (9.3-11.8) H 17.5 sec (9.3-11.8) H Pending Prothrombin Time INR 2.02 (0.9-1.15) H 1.97 (0.9-1.15) H 1.74 (0.9-1.15) H Pending Activated Partial Thromboplast Time > 139.0 SEC (24.5-34.5) *H > 139.0 SEC (24.5-34.5) *H > 139.0 SEC (24.5-34.5) *H Pending Cardiac Markers Test 12/10/24 03:51 B-Type Natriuretic Peptide 694.84 pg/mL (0-100) LFT Test 12/10/24 09:27 Alanine Aminotransferase (ALT) 268 U/L (7-40) H Alkaline Phosphatase 165 U/L (46-116) H Aspartate Amino Transferase (AST) 184 U/L (13-40) H Total Bilirubin 0.7 mg/dL (0.2-1.0) Urinalysis Test 12/09/24 04:05 Urine Color Light-yellow (Yellow) Urine Clarity Clear (Clear) Urine pH 5.0 (5.0-9.0) Urine Specific [place] 1.013 (1.001-1.035) Urine Protein Negative (Negative) Urine Ketones Negative (Negative) Urine Blood Negative /uL (Negative) Urine Nitrite Negative (Negative) Urine Bilirubin Negative (Negative) Urine Urobilinogen Normal mg/dL (Negative) Urine Leukocyte Esterase Negative /uL (Negative) Urine RBC <1 /hpf (0 - 4) Urine Microscopic WBC 4 /HPF (0-5) Urine Squamous Epithelial Cells None seen /hpf (<5) Urine Renal Epithelial Cells Few /hpf (None Seen) Urine Bacteria None seen /hpf (None Seen) Urine Hyaline Casts Mod /lpf (0 - 2) Urine Glucose Normal mg/dL (Normal) Microbiology Microbiology Date/Time Source Procedure Growth Status 12/09/24 17:15 Nose MRSA Screen - Final Complete 12/09/24 04:05 Voided Urine Urine Culture - Preliminary Resulted 12/08/24 18:38 Blood Blood Culture - Preliminary NO GROWTH AFTER 48 HOURS OF INCUBATION. Resulted 12/08/24 13:09 Sputum Gram Stain - Final Resulted 12/08/24 13:09 Sputum Respiratory Culture - Preliminary Resulted Assessment/Plan Assessment/Plan Impression: Acute hypoxic respiratory failure Dependence on supplemental oxygen Pulmonary embolism Deep vein thrombosis Sepsis 2/2 viral pneumonia Metastatic breast cancer, mets to pleura Obesity - BMI 35.5 Events: Remains on supplemental oxygen Currently on HFO2 flow rate at 30 LPM, FiO2 40% Taper FiO2 as tolerated Increased oxygen requirements. S/p tPA Continue heparin drip Received Lasix Monitor renal function. Monitor electrolytes. Supplement as necessary. Continue antibiotics Continue bronchodilators Incentive spirometry Labs and imaging reviewed. Rest of plan as noted below. Plan: Supplemental oxygen Titrate to keep O2 sats above 92%. Plan for tPA (Alteplase). Continue anticoagulation Neuro checks post TPA. Continue antibiotics Continue bronchodilators Incentive spirometry Monitor renal function. Monitor electrolytes. Supplement as necessary. Monitor ins and outs. 12/09 - S/p central line placement by Dr. Larios. S/p Alteplase dose. Monitor neuro checks. Monitor hemoglobin Diet and lifestyle modifications for weight reduction Obesity complicates all care GI prophylaxis - Protonix. Prognosis: Poor given patient's multiple co-morbidities. Rest of plan per hospitalist and other consultants. Thank you, Dr. Varela, for allowing me to participate in this patient's care. Further recommendations will depend on the patient's clinical course. Please do not hesitate to contact me if you have any questions or concerns. This medical document was created using an electronic medical record system with [employer] dictation system. Although these documentations are being carefully reviewed, there may still be some phonetic and typographical changes. The errors are purely typographical, due to imperfection on the software program, and do not reflect any compromise in the patient's medical care. Plan discussed with: Patient, Other (RN Lorna) Date of Service: Dec 10, 2024 Billing Provider: SUDEEP VARELA MD Common Visit Codes: [id number] INP/OBS CARE(HIGH), [id number] CARE 30-74 MIN SUDEEP VARELA MD Dec 10, 2024 22:54
[2024-12-10 23:15] LABS: INR 1.62 (0.9-1.15); Prothrombin Time 16.4 sec (9.3-11.8)
[2024-12-10 23:22] LABS: Partial Thromboplastin Time > 139.0 SEC (24.5-34.5)
[2024-12-11] VITALS (87 sets, daily range): BP systolic 100–156; BP diastolic 52–92; PULSE 97–181; RESP 12–44; TEMP 97.5–98.5; O2SAT 6–100
[2024-12-11] MEDS: HEPARIN DRIP/D5W 100UNITS/ML 250 ML IV SCH ×3 (01:00→22:00)
[2024-12-11 04:00] LABS: Hemoglobin 9.5 g/dL (12.2-16.2); Nucleated Red Blood Cells % 0.6 %
[2024-12-11 04:04] LABS: Hematocrit 28.7 % (36.0-46.0); Mean Corpuscular Hemoglobin 26.6 pg (28.0-32.0); Mean Corpuscular Volume 80.4 fL (80.0-100.0)
[2024-12-11 04:18] LABS: Alanine Aminotransferase 275 U/L (7-40); Albumin 2.9 g/dL (3.2-4.8); Alkaline Phosphatase 144 U/L (46-116); BUN/Creatinine Ratio 34.2 (10.0-20.0); Blood Urea Nitrogen 25 mg/dL (9-23); Calcium 7.8 mg/dL (8.7-10.4); Carbon Dioxide 25 mmol/L (20-31); Glucose 125 mg/dL (74-106); Magnesium 1.9 mg/dL (1.6-2.6); Total Protein 4.8 g/dL (5.7-8.2)
[2024-12-11 04:19] LABS: Bilirubin, Total 0.5 mg/dL (0.2-1.0)
[2024-12-11 04:26] LABS: Anion Gap 9 (5-15); Chloride 106 mmol/L (98-107); Sodium 140 mmol/L (136-145)
[2024-12-11 04:28] LABS: Potassium 3.3 mmol/L (3.5-5.1)
[2024-12-11] MEDS: POTASSIUM CHL 20MEQ/100ML 100 ML IV ONE (06:07)
[2024-12-11 07:46] LABS: INR 1.47 (0.9-1.15); Prothrombin Time 15.0 sec (9.3-11.8)
[2024-12-11 07:56] LABS: Partial Thromboplastin Time > 139.0 SEC (24.5-34.5)
--- NOTE | 2024-12-11 08:25 | CONS ---
Pharmacy Clinical Information: HEPARIN DRIP, DVT PROTOCOL @0703 APTT >139 HOLD HEPARIN DRIP FOR 1 HR, RESTART HEPARIN DRIP AT RATE 750 UNITS/HR @0930 NEXT APTT DRAW SCHEDULED @1530 PER RX PROTOCOL CONFIRMED AND READ BACK WITH RN BROOKS AVIL[facility] RESIDENT Dec 11, 2024 08:25
[2024-12-11] MEDS: POTASSIUM PHOSPHATE 22 MEQ in SODIUM CHL 0.9% 100 ML IV ONE (11:10)
--- NOTE | 2024-12-11 14:54 | DVHPN2 ---
Assessment/Plan Assessment/Plan Subjective 74 F with hx of breast ca s/p partial mastectomy with pleural mets, HTN, PLEF, DVT, admitted for b/l PE seen today, still on HFNC, covering PNA with ceft azithro, culture with ba cteria, sens and species pending. cr normalized, repeat ct today Objective AOx4 increased WOB on 10L oximyzer b/l coarse rhonchi s1 s2 tachycardic abdomen soft nontender LE edema b/l warm labs ekg imaging reviewed POCUS done, TDS, mcconnel sign present, RV enlarged, IVC dilated but collapsible with inspiration, TAPSE 0.8cm Assessment & Plan B/L obstructive PE b/l DVT obstructive shock hypoxic RF ISACC VMN metastatic breast cancer transaminitis obesity pHTN NIDDM HTN Lactic acidosis s/p TPA, c/w drip, followed by heparin drip no blood draw 24 hr pna gp vs gn? cardio reccs appreciated gentle diuresis ISS hold home mets trend cr s/p contrast follow culture pulm consult ctpe repeat tomorrow diet cardiac dvt ppx on heparin gi ppx protonix poor prognosis condition critical DNR DNI 45 minutes spent discussing treatment options and intubation, patient understood risk of TPA and no intubation and would proceed 35 minutes with family discussion today re goals of care crit care time 35 minutes Plan discussed with: Patient My Orders Orders - CATALINO DELATORRE MD Procedure Category Date Status Time Apply Z-Guard KELSEY 12/10/24 In Process 14:55 * Dietary Consult CONS 12/10/24 Transmitted 19:14 Cleanse Wound With KELSEY 12/10/24 In Process Wound Clean 13:55 Heparin Drip/D5w PHA 12/11/24 In Process 100units/Ml 09:30 PTPTT LAB 12/11/24 Logged 15:30 Complete Blood Count LAB 12/12/24 Verified 04:00 Heparin Per Pharmacy KELSEY 12/11/24 In Process Protocol 08:25 Basic Metabolic Panel LAB 12/12/24 Verified 04:00 Magnesium LAB 12/12/24 Verified 04:00 Phosphorus LAB 12/12/24 Verified 04:00 Date of Service: Dec 11, 2024 Billing Provider: CATALINO DELATORRE MD Common Visit Codes: [id number] CARE 30-74 MIN CATALINO DELATORRE MD Dec 11, 2024 14:54
--- NOTE | 2024-12-11 18:51 | DVH ---
EXAM: CT CT ANGIO CHEST CONTRAST HISTORY: clot burden TECHNIQUE: CT angiogram was performed. CT scans at this facility use dose modulation, iterative recon struction, and/or weight based dosing when appropriate to reduce radiation dose to as low as reasonab ly achievable. Coronal and sagittal reformations and maximum intensity projection images were created from the transaxial source data by the research food technologist and workstation, as well as 3-D volume render ed images with MIPs. COMPARISON: XY CHEST XRAY 1 VIEW on DOS: 12/09/24 FINDINGS: [LOWER NECK]: Multiple small less than 15 mm hypoattenuating nodules in the thyroid. Asymmetric edema the right lower neck, new since prior examination. [LYMPH NODES/MEDIASTINUM]: No abnormal lymph nodes by CT size criteria [CARDIOVASCULAR]: Normal cardiac size. No pericardial effusion. No aneurysmal dilatation of the great vessels. No significant coronary artery calcifications. dilation of the right atrium. [PULMONARY ARTERIES]: Significant eccentric thrombus located within the right main pulmonary artery w ith extension into the right interlobar artery. Additional areas of pulmonary emboli in the right upp er lobe segmental pulmonary arteries. Additional eccentric thrombi along the left distal main pulmona ry artery and extension into the left basilar segmental to subsegmental pulmonary arteries. Prominenc e of the main pulmonary artery suggestive of pulmonary hypertension. Elevated right heart pressures. Right ventricular heart strain. Basal diameter of the right ventricle measures 5.2 cm. [UPPER ABDOMEN]: Benign-appearing cysts of the right superior kidney [MUSCULOSKELETAL]: No acute fracture or aggressive focal osseous lesion. Multilevel degenerative price ge of the visualized spine. [CHEST WALL]: Unremarkable. [LUNG PARENCHYMA/PLEURAL SPACE]: Patchy areas of alveolar edema in bilateral upper lobes and left low er lobe. No pleural effusion or pneumothorax. IMPRESSION: 1. Significant eccentric thrombus located within the right main pulmonary artery with extension into the right interlobar artery. 2. Right ventricular heart strain. 3. Additional areas of pulmonary emboli in the right upper lobe segmental pulmonary arteries. 4. Additional eccentric thrombi along the left distal main pulmonary artery and extension into the le ft basilar segmental to subsegmental pulmonary arteries. 5. Prominence of the main pulmonary artery suggestive of pulmonary hypertension. 6. Patchy areas of alveolar edema in bilateral upper lobes and left lower lobe. 7. Overall appearance is unchanged from prior examination.
[2024-12-11 21:37] LABS: Prothrombin Time 13.3 sec (9.3-11.8)
[2024-12-11 21:38] LABS: INR 1.29 (0.9-1.15)
[2024-12-11 21:42] LABS: Partial Thromboplastin Time 88.8 SEC (24.5-34.5)
--- NOTE | 2024-12-11 21:42 | DVHPN2 ---
Subjective DOS: 12/11/2024 Patient seen and examined at bedside. Remains on supplemental oxygen Overnight events reviewed. Changes from previous H/P or p: No Changes Eyes: No Pain, No Vision change, No Conjunctivae inflammation, No Eyelid inflammation, No Other, No Redness ENT: No Ear pain, No Ear discharge, No Nose pain, No Nose discharge, No Nose congestion, No Mouth pain, No Mouth swelling, No Throat pain, No Throat swelling, No Other Cardiovascular: Edema Respiratory: Shortness of breath, SOB with excertion Gastrointestinal: No Nausea, No Vomiting, No Abdominal Pain, No Diarrhea, No Constipation, No Melena, No Hematochezia, No Other Genitourinary: No Dysuria, No Frequency, No Incontinence, No Hematuria, No Retention, No Other Musculoskeletal: No other, No neck pain, No shoulder pain, No arm pain, No back pain, No hand pain, No leg pain, No foot pain Skin: No Rash, No Lesions, No Jaundice, No Bruising, No Other Objective Vitals Vital Signs Date Time Temp Pulse Resp B/P (MAP) Pulse Ox O2 Delivery O2 Flow Rate FiO2 12/11/24 21:15 108 20 123/54 (77) 97 12/11/24 21:00 98.0 98.0 12/11/24 20:00 Hi-Flow Heated NC+ 6 40 Oxymizer 40 Intake/Output Intake and Output 12/11/24 07:00 Intake Total 2423.5 ml Output Total 2200 ml Balance 223.5 ml Intake Oral 1900 ml IV Total 523.5 ml Output Urine Total 2200 ml Exam Gen.: Patient lying in bed in no apparent distress. On supplemental oxygen. Head: Normocephalic, atraumatic. Eyes: EOMI/PERRLA. Ears: Normal hearing. Normal anatomy. Neck/trachea: Trachea midline, supple. Nose: Normal external anatomy. Mouth: Moist mucous membranes. Chest: Decreased air entry bilaterally. No wheezing or rhonchi. Cardiovascular: Positive S1, positive S2. Regular rate and rhythm. Abdomen: Positive bowel sounds in all 4 quadrants. Soft, non-tender, non- distended. : Deferred. Rectal: Deferred. Skin: Warm, dry. Intact. Extremities: 2+ radial pulses bilaterally. No lower extremity edema. Neuro: Awake, alert, oriented x3. No gross motor or sensory deficits. Cranial nerves II through XII intact. Gait not assessed. Medications Current Medications Medications Dose Ordered Sig/Edouard Route Start Time Stop Time Status Last Admin Dose Admin Nitroglycerin 0.4 mg Q5MINP PRN SL 12/08/24 22:15 Morphine Sulfate 2 mg Q30M PRN IV 12/08/24 22:15 Ipratropium [place] 0.5 mg Q6HWA NEB 12/09/24 06:00 12/11/24 18:22 0.5 MG Azithromycin 250 ml @ 125 mls/hr DAILY IV 12/10/24 10:00 12/11/24 10:34 125 MLS/HR Heparin Sodium/ Dextrose 250 ml @ 16.902 mls/ hr [id number] IV 12/09/24 15:30 UNV Pantoprazole Sodium 40 mg DAILY IV 12/10/24 10:00 12/11/24 10:34 40 MG Acetaminophen 650 mg Q4HP PRN PO 12/09/24 21:15 12/11/24 15:40 650 MG Ceftriaxone Sodium 50 ml @ 100 mls/hr DAILY@09 IV 12/11/24 09:00 12/11/24 08:59 100 MLS/HR Heparin Sodium/ Dextrose 250 ml @ 7.5 mls/hr Q24H IV 12/11/24 09:30 12/11/24 09:30 7.5 MLS/HR Laboratory Results Laboratory Tests 12/11/24 03:09 Chemistry Test 12/11/24 03:09 Albumin 2.9 g/dL (3.2-4.8) L Calcium Level 7.8 mg/dL (8.7-10.4) L Magnesium Level 1.9 mg/dL (1.6-2.6) Phosphorus Level 1.9 mg/dL (2.4-5.1) L Total Protein 4.8 g/dL (5.7-8.2) L Coagulation Test 12/10/24 22:06 12/11/24 07:03 12/11/24 20:47 Prothrombin Time 16.4 sec (9.3-11.8) H 15.0 sec (9.3-11.8) H Pending Prothrombin Time INR 1.62 (0.9-1.15) H 1.47 (0.9-1.15) H Pending Activated Partial Thromboplast Time > 139.0 SEC (24.5-34.5) *H > 139.0 SEC (24.5-34.5) *H Pending LFT Test 12/11/24 03:09 Alanine Aminotransferase (ALT) 275 U/L (7-40) H Alkaline Phosphatase 144 U/L (46-116) H Aspartate Amino Transferase (AST) 142 U/L (13-40) H Total Bilirubin 0.5 mg/dL (0.2-1.0) Urinalysis Test 12/09/24 04:05 Urine Color Light-yellow (Yellow) Urine Clarity Clear (Clear) Urine pH 5.0 (5.0-9.0) Urine Specific [place] 1.013 (1.001-1.035) Urine Protein Negative (Negative) Urine Ketones Negative (Negative) Urine Blood Negative /uL (Negative) Urine Nitrite Negative (Negative) Urine Bilirubin Negative (Negative) Urine Urobilinogen Normal mg/dL (Negative) Urine Leukocyte Esterase Negative /uL (Negative) Urine RBC <1 /hpf (0 - 4) Urine Microscopic WBC 4 /HPF (0-5) Urine Squamous Epithelial Cells None seen /hpf (<5) Urine Renal Epithelial Cells Few /hpf (None Seen) Urine Bacteria None seen /hpf (None Seen) Urine Hyaline Casts Mod /lpf (0 - 2) Urine Glucose Normal mg/dL (Normal) Microbiology Microbiology Date/Time Source Procedure Growth Status 12/09/24 17:15 Nose MRSA Screen - Final Complete 12/09/24 04:05 Voided Urine Urine Culture - Final Complete 12/08/24 18:38 Blood Blood Culture - Preliminary NO GROWTH AFTER 72 HOURS OF INCUBATION. Resulted 12/08/24 13:09 Sputum Gram Stain - Final Resulted 12/08/24 13:09 Sputum Respiratory Culture - Preliminary Resulted Assessment/Plan Assessment/Plan Impression: Acute hypoxic respiratory failure Dependence on supplemental oxygen Pulmonary embolism Deep vein thrombosis Sepsis 2/2 viral pneumonia Metastatic breast cancer, mets to pleura Obesity - BMI 35.5 Events: Remains on supplemental oxygen Currently on 6 LPM Oxymizer Taper O2 as tolerated Improved oxygen requirements. S/p tPA Continue anticoagulation w/ heparin drip - transition to Eliquis as tolerated Continue antibiotics Continue bronchodilators Incentive spirometry Monitor renal function. Monitor electrolytes. Supplement as necessary. Potassium supplementation Protonix for GI ppx Labs and imaging reviewed. Rest of plan as noted below. Plan: Supplemental oxygen Titrate to keep O2 sats above 92%. S/p tPA (Alteplase). Neuro checks post TPA. Continue anticoagulation Continue antibiotics Continue bronchodilators Incentive spirometry Monitor renal function. Monitor electrolytes. Supplement as necessary. Monitor ins and outs. 12/09 - S/p central line placement by Dr. Larios. S/p Alteplase dose. Monitor neuro checks. Monitor hemoglobin Transfuse if less than 7.0 g/dL. Diet and lifestyle modifications for weight reduction Obesity complicates all care GI prophylaxis - Protonix. Prognosis: Poor given patient's multiple co-morbidities. Rest of plan per hospitalist and other consultants. Thank you, Dr. Varela, for allowing me to participate in this patient's care. Further recommendations will depend on the patient's clinical course. Please do not hesitate to contact me if you have any questions or concerns. This medical document was created using an electronic medical record system with [employer] dictation system. Although these documentations are being carefully reviewed, there may still be some phonetic and typographical changes. The errors are purely typographical, due to imperfection on the software program, and do not reflect any compromise in the patient's medical care. Plan discussed with: Patient, Other (MANAGER VALUATION) Visit Coding Pulmonary Billing Provider: SUDEEP VARELA MD Date of Service if different f: Dec 11, 2024 Common Visit Codes: [id number] INP/OBS CARE(HIGH), [id number] CARE 30-74 MIN SUDEEP VARELA MD Dec 11, 2024 21:42
[2024-12-12] VITALS (30 sets, daily range): BP systolic 118–150; BP diastolic 60–82; PULSE 96–125; RESP 12–26; TEMP 98–98.4; O2SAT 90–100
[2024-12-12 04:08] LABS: Hematocrit 26.4 % (36.0-46.0); Hemoglobin 8.7 g/dL (12.2-16.2)
[2024-12-12 04:10] LABS: Mean Corpuscular Hemoglobin 26.7 pg (28.0-32.0); Mean Corpuscular Volume 81.3 fL (80.0-100.0); Nucleated Red Blood Cells % 0.1 %
[2024-12-12 04:19] LABS: Chloride 104 mmol/L (98-107); Potassium 3.9 mmol/L (3.5-5.1); Sodium 140 mmol/L (136-145)
[2024-12-12 04:20] LABS: Anion Gap 8 (5-15); Carbon Dioxide 28 mmol/L (20-31)
[2024-12-12 04:21] LABS: Calcium 7.7 mg/dL (8.7-10.4)
[2024-12-12 04:26] LABS: BUN/Creatinine Ratio 27.5 (10.0-20.0); Blood Urea Nitrogen 14 mg/dL (9-23); Magnesium 1.7 mg/dL (1.6-2.6)
[2024-12-12 04:28] LABS: Glucose 113 mg/dL (74-106)
[2024-12-12 04:32] LABS: INR 1.23 (0.9-1.15); Partial Thromboplastin Time 68.0 SEC (24.5-34.5); Prothrombin Time 12.8 sec (9.3-11.8)
[2024-12-12] MEDS: SODIUM PHOSPHATES 20 MEQ in SODIUM CHL 0.9% 100 ML IV ONE (07:30)
--- NOTE | 2024-12-12 07:40 | DVHPN2 ---
Progress Note Date Seen: Dec 12, 2024 Medical Necessity Reason Pt with a Central, PICC or Fol: No Subjective Patient reports: Feels better Other Systems: sitting up in bed Objective vital signs Vital Sign Date Time Temp Pulse Resp B/P (MAP) Pulse Ox O2 Delivery O2 Flow Rate FiO2 12/12/24 06:33 125 19 92 12/12/24 06:33 Oxymizer 6.0 12/12/24 06:33 N/A 12/12/24 06:00 150/70 (96) 12/11/24 21:00 98.0 98.0 Total Intake and Output 12/11/24 12/11/24 12/12/24 15:00 23:00 07:00 Intake Total 1107.0 ml 1256.0 ml 638.5 ml Output Total 625 ml 725 ml Balance 1107.0 ml 631.0 ml -86.5 ml medications Current Medications Medications Dose Ordered Sig/[place] Route Start Time Stop Time Status Last Admin Dose Admin Nitroglycerin 0.4 mg Q5MINP PRN SL 12/08/24 22:15 Morphine Sulfate 2 mg Q30M PRN IV 12/08/24 22:15 Ipratropium [place] 0.5 mg Q6HWA NEB 12/09/24 06:00 12/12/24 06:33 0.5 MG Azithromycin 250 ml @ 125 mls/hr DAILY IV 12/10/24 10:00 12/11/24 10:34 125 MLS/HR Heparin Sodium/ Dextrose 250 ml @ 16.902 mls/ hr [id number] IV 12/09/24 15:30 UNV Pantoprazole Sodium 40 mg DAILY IV 12/10/24 10:00 12/11/24 10:34 40 MG Acetaminophen 650 mg Q4HP PRN PO 12/09/24 21:15 12/11/24 15:40 650 MG Ceftriaxone Sodium 50 ml @ 100 mls/hr DAILY@09 IV 12/11/24 09:00 12/11/24 08:59 100 MLS/HR Heparin Sodium/ Dextrose 250 ml @ 5.5 mls/hr Q24H IV 12/11/24 22:00 12/11/24 22:00 5.5 MLS/HR Examination: GENERAL:Abnormal, HEENT:Abnormal, LUNGS:Abnormal, CVS:Abnormal, ABDOMEN:Abnormal laboratory and microbiology Laboratory Tests 12/12/24 03:55 Test 12/12/24 03:55 Range/Units Serum Glucose 113 H 74-106 mg/dL Microbiology Date/Time Source Procedure Growth Status 12/09/24 17:15 Nose MRSA Screen - Final Complete 12/09/24 04:05 Voided Urine Urine Culture - Final Complete 12/08/24 18:38 Blood Blood Culture - Preliminary NO GROWTH AFTER 72 HOURS OF INCUBATION. Resulted 12/08/24 13:09 Sputum Gram Stain - Final Resulted 12/08/24 13:09 Sputum Respiratory Culture - Preliminary Resulted Problem List/Assessment/Plan Problem List/Assessment/Plan submassive PE dvt breast cancer morbid obesity shock ckd s/p tpA given, heparin gtt possible repeat cta to assess clot burden prn diuretics supplemental o2 watch for bleeding cont heparin/ transition to anticoag po when feasible her prognosis is very poor with severe pulm htn, recommend hospice 40 mins critical care time spent IMPRESSION: 1. Significant eccentric thrombus located within the right main pulmonary artery with extension into the right interlobar artery. 2. Right ventricular heart strain. 3. Additional areas of pulmonary emboli in the right upper lobe segmental pulmonary arteries. 4. Additional eccentric thrombi along the left distal main pulmonary artery and extension into the left basilar segmental to subsegmental pulmonary arteries. 5. Prominence of the main pulmonary artery suggestive of pulmonary hypertension. 6. Patchy areas of alveolar edema in bilateral upper lobes and left lower lobe. 7. Overall appearance is unchanged from prior examination. Plan discussed with: Patient Dietary Evaluation Review Comments: 1) Ensure High Protein 240ml TID 2) Monitor PO intake, lab values, weight trend, and I/O Expected Outcomes/Goals: To meet >75% estimated needs Lab values to improve Fu 3-5 days Date of Service: Dec 12, 2024 Billing Provider: SHAHRAM KWAN MD Common Visit Codes: NOT BILLABLE SHAHRAM KWAN MD Dec 12, 2024 07:40
[2024-12-12] MEDS: IOHEXOL 350 MG/ML 100ML IJ ONE (09:17)
[2024-12-12] MEDS: CALCIUM ACETATE 667 MG CAP PO ONE (10:19)
[2024-12-12 11:09] LABS: INR 1.19 (0.9-1.15); Partial Thromboplastin Time 57.4 SEC (24.5-34.5); Prothrombin Time 12.4 sec (9.3-11.8)
--- NOTE | 2024-12-12 11:23 | CONS ---
Pharmacy Clinical Information: HEPARIN DRIP, DVT PROTOCOL @1005 APTT 57.4 NO BOLUS, NO CHANGE NEXT APTT DRAW SCHEDULED @1600 PER RX PROTOCOL CONFIRMED AND READ BACK WITH RN BROOKS [facility] RESIDENT Dec 12, 2024 11:23
--- NOTE | 2024-12-12 14:16 | DVHPN2 ---
Assessment/Plan Assessment/Plan Subjective 74 F with hx of breast ca s/p partial mastectomy with pleural mets, HTN, PLEF, DVT, admitted for b/l PE seen today, on oximizer, start eliquis, c.w lasix Objective AOx4 increased WOB on 10L oximyzer b/l coarse rhonchi s1 s2 tachycardic abdomen soft nontender LE edema b/l warm labs ekg imaging reviewed POCUS done, TDS, mcconnel sign present, RV enlarged, IVC dilated but collapsible with inspiration, TAPSE 0.8cm Assessment & Plan B/L obstructive PE b/l DVT obstructive shock hypoxic RF ISACC VMN metastatic breast cancer transaminitis obesity pHTN NIDDM HTN Lactic acidosis s/p TPA, c/w drip, followed by heparin drip no blood draw 24 hr pna gp vs gn? cardio reccs appreciated gentle diuresis ISS hold home mets trend cr s/p contrast follow culture pulm consult ctpe repeat tomorrow diet cardiac dvt ppx on heparin gi ppx protonix poor prognosis condition critical DNR DNI 45 minutes spent discussing treatment options and intubation, patient understood risk of TPA and no intubation and would proceed 35 minutes with family discussion today re goals of care crit care time 35 minutes Plan discussed with: Patient My Orders Orders - CATALINO DELATORRE MD Procedure Category Date Status Time Ct Angio Chest CT 12/11/24 Resulted Contrast 14:52 Heparin Drip/D5w PHA 12/11/24 In Process 100units/Ml 22:00 Heparin Per Pharmacy [facility] 12/12/24 In Process Protocol 04:35 PTPTT LAB 12/12/24 Logged 16:00 Heparin Per Pharmacy [facility] 12/12/24 In Process Protocol 11:24 Complete Blood Count LAB 12/13/24 Verified 04:00 Furosemide Injection PHA 12/13/24 Transmitted (Lasix Injection) 10:00 Apixaban (Eliquis) PHA 12/12/24 Transmitted 22:00 Apixaban (Eliquis) PHA 12/12/24 Transmitted 22:00 Date of Service: Dec 12, 2024 Billing Provider: CATALINO DELATORRE MD Common Visit Codes: [id number] CARE 30-74 MIN CATALINO DELATORRE MD Dec 12, 2024 14:16
--- NOTE | 2024-12-12 21:06 | DVHPN2 ---
Subjective DOS: 12/12/2024 Patient seen and examined at bedside. Remains on supplemental oxygen Overnight events reviewed. Changes from previous H/P or p: No Changes Eyes: No Pain, No Vision change, No Conjunctivae inflammation, No Eyelid inflammation, No Other, No Redness ENT: No Ear pain, No Ear discharge, No Nose pain, No Nose discharge, No Nose congestion, No Mouth pain, No Mouth swelling, No Throat pain, No Throat swelling, No Other Cardiovascular: Edema Respiratory: Shortness of breath, SOB with excertion Gastrointestinal: No Nausea, No Vomiting, No Abdominal Pain, No Diarrhea, No Constipation, No Melena, No Hematochezia, No Other Genitourinary: No Dysuria, No Frequency, No Incontinence, No Hematuria, No Retention, No Other Musculoskeletal: No other, No neck pain, No shoulder pain, No arm pain, No back pain, No hand pain, No leg pain, No foot pain Skin: No Rash, No Lesions, No Jaundice, No Bruising, No Other Objective Vitals Vital Signs Date Time Temp Pulse Resp B/P (MAP) Pulse Ox O2 Delivery O2 Flow Rate FiO2 12/12/24 20:00 103 16 95 Oxymizer 6 40 40 12/12/24 19:00 148/73 (98) 12/12/24 16:00 98.0 98.0 Intake/Output Intake and Output 12/12/24 07:00 Intake Total 3007.0 ml Output Total 1350 ml Balance 1657.0 ml Intake Oral 2400 ml IV Total 607.0 ml Output Urine Total 1350 ml Exam Gen.: Patient lying in bed in no apparent distress. On supplemental oxygen. Head: Normocephalic, atraumatic. Eyes: EOMI/PERRLA. Ears: Normal hearing. Normal anatomy. Neck/trachea: Trachea midline, supple. Nose: Normal external anatomy. Mouth: Moist mucous membranes. Chest: Decreased air entry bilaterally. No wheezing or rhonchi. Cardiovascular: Positive S1, positive S2. Regular rate and rhythm. Abdomen: Positive bowel sounds in all 4 quadrants. Soft, non-tender, non- distended. : Deferred. Rectal: Deferred. Skin: Warm, dry. Intact. Extremities: 2+ radial pulses bilaterally. No lower extremity edema. Neuro: Awake, alert, oriented x3. No gross motor or sensory deficits. Cranial nerves II through XII intact. Gait not assessed. Medications Current Medications Medications Dose Ordered Sig/Edouard Route Start Time Stop Time Status Last Admin Dose Admin Nitroglycerin 0.4 mg Q5MINP PRN SL 12/08/24 22:15 Morphine Sulfate 2 mg Q30M PRN IV 12/08/24 22:15 Ipratropium [place] 0.5 mg Q6HWA NEB 12/09/24 06:00 12/12/24 18:49 0.5 MG Azithromycin 250 ml @ 125 mls/hr DAILY IV 12/10/24 10:00 12/12/24 10:19 125 MLS/HR Heparin Sodium/ Dextrose 250 ml @ 16.902 mls/ hr [id number] IV 12/09/24 15:30 UNV Pantoprazole Sodium 40 mg DAILY IV 12/10/24 10:00 12/12/24 10:19 40 MG Acetaminophen 650 mg Q4HP PRN PO 12/09/24 21:15 12/11/24 15:40 650 MG Ceftriaxone Sodium 50 ml @ 100 mls/hr DAILY@09 IV 12/11/24 09:00 12/12/24 09:16 100 MLS/HR Heparin Sodium/ Dextrose 250 ml @ 5.5 mls/hr Q24H IV 12/11/24 22:00 12/12/24 21:59 12/11/24 22:00 5.5 MLS/HR Furosemide 20 mg DAILY IV 12/13/24 10:00 Apixaban 10 mg BID PO 12/12/24 22:00 12/19/24 21:59 Apixaban 5 mg BID PO 12/19/24 22:00 Laboratory Results Laboratory Tests 12/12/24 03:55 Chemistry Test 12/12/24 03:55 Calcium Level 7.7 mg/dL (8.7-10.4) L Magnesium Level 1.7 mg/dL (1.6-2.6) Phosphorus Level 1.4 mg/dL (2.4-5.1) L Coagulation Test 12/12/24 03:55 12/12/24 10:05 Prothrombin Time 12.8 sec (9.3-11.8) H 12.4 sec (9.3-11.8) H Prothrombin Time INR 1.23 (0.9-1.15) H 1.19 (0.9-1.15) H Activated Partial Thromboplast Time 68.0 SEC (24.5-34.5) H 57.4 SEC (24.5-34.5) H Urinalysis Test 12/09/24 04:05 Urine Color Light-yellow (Yellow) Urine Clarity Clear (Clear) Urine pH 5.0 (5.0-9.0) Urine Specific [place] 1.013 (1.001-1.035) Urine Protein Negative (Negative) Urine Ketones Negative (Negative) Urine Blood Negative /uL (Negative) Urine Nitrite Negative (Negative) Urine Bilirubin Negative (Negative) Urine Urobilinogen Normal mg/dL (Negative) Urine Leukocyte Esterase Negative /uL (Negative) Urine RBC <1 /hpf (0 - 4) Urine Microscopic WBC 4 /HPF (0-5) Urine Squamous Epithelial Cells None seen /hpf (<5) Urine Renal Epithelial Cells Few /hpf (None Seen) Urine Bacteria None seen /hpf (None Seen) Urine Hyaline Casts Mod /lpf (0 - 2) Urine Glucose Normal mg/dL (Normal) Microbiology Microbiology Date/Time Source Procedure Growth Status 12/09/24 17:15 Nose MRSA Screen - Final Complete 12/09/24 04:05 Voided Urine Urine Culture - Final Complete 12/08/24 18:38 Blood Blood Culture - Preliminary NO GROWTH AFTER 72 HOURS OF INCUBATION. Resulted 12/08/24 13:09 Sputum Gram Stain - Final Complete 12/08/24 13:09 Sputum Respiratory Culture - Final Complete Assessment/Plan Assessment/Plan Impression: Acute hypoxic respiratory failure Dependence on supplemental oxygen Pulmonary embolism Deep vein thrombosis Sepsis 2/2 viral pneumonia Metastatic breast cancer, mets to pleura Obesity - BMI 35.5 Events: Remains on supplemental oxygen Currently on 3 LPM NC Improved oxygen requirements (previously on 6 LPM Oxymizer). Continue to taper O2 as tolerated Status post tPA Continue anticoagulation w/ heparin drip -recommend transition to Eliquis 5 mg PO b.i.d. as tolerated Continue antibiotics Continue bronchodilators Incentive spirometry Continue Protonix for GI ppx Labs and imaging reviewed. Rest of plan as noted below. Plan: Supplemental oxygen Titrate to keep O2 sats above 92%. S/p tPA (Alteplase). Neuro checks post TPA. Continue anticoagulation Continue antibiotics Continue bronchodilators Incentive spirometry Monitor renal function. Monitor electrolytes. Supplement as necessary. Monitor ins and outs. 12/09 - S/p central line placement by Dr. Larios. S/p Alteplase dose. Monitor neuro checks. Monitor hemoglobin Transfuse if less than 7.0 g/dL. Diet and lifestyle modifications for weight reduction Obesity complicates all care GI prophylaxis - Protonix. Prognosis: Poor given patient's multiple co-morbidities. Rest of plan per hospitalist and other consultants. Thank you, Dr. Varela, for allowing me to participate in this patient's care. Further recommendations will depend on the patient's clinical course. Please do not hesitate to contact me if you have any questions or concerns. This medical document was created using an electronic medical record system with [employer] dictation system. Although these documentations are being carefully reviewed, there may still be some phonetic and typographical changes. The errors are purely typographical, due to imperfection on the software program, and do not reflect any compromise in the patient's medical care. Plan discussed with: Patient, Other (RN) Visit Coding Pulmonary Billing Provider: SUDEEP VARELA MD Date of Service if different f: Dec 12, 2024 Common Visit Codes: [id number] INP/OBS CARE(HIGH) SUDEEP VARELA MD Dec 12, 2024 21:06
[2024-12-12] MEDS: APIXABAN 5 MG TAB PO SCH (21:48)
[2024-12-13] VITALS (22 sets, daily range): BP systolic 131–160; BP diastolic 69–91; PULSE 96–120; RESP 13–25; TEMP 97.2–98.2; O2SAT 91–99
[2024-12-13 03:56] LABS: Anion Gap 6 (5-15); Carbon Dioxide 29 mmol/L (20-31); Chloride 103 mmol/L (98-107); Potassium 3.6 mmol/L (3.5-5.1); Sodium 138 mmol/L (136-145)
[2024-12-13 03:58] LABS: Calcium 7.9 mg/dL (8.7-10.4)
[2024-12-13 04:02] LABS: BUN/Creatinine Ratio 21.1 (10.0-20.0); Blood Urea Nitrogen 12 mg/dL (9-23); Glucose 109 mg/dL (74-106)
[2024-12-13 04:03] LABS: Magnesium 1.6 mg/dL (1.6-2.6)
--- NOTE | 2024-12-13 08:42 | DVHPN2 ---
Assessment/Plan Assessment/Plan Subjective 74 F with hx of breast ca s/p partial mastectomy with pleural mets, HTN, PLEF, DVT, admitted for b/l PE seen today, on 3L NC. transfer to tele, switch meds to PO, OOBTC, PT eval Objective AOx4 increased WOB on 10L oximyzer b/l coarse rhonchi s1 s2 tachycardic abdomen soft nontender LE edema b/l warm labs ekg imaging reviewed POCUS done, TDS, mcconnel sign present, RV enlarged, IVC dilated but collapsible with inspiration, TAPSE 0.8cm Assessment & Plan B/L obstructive PE b/l DVT obstructive shock hypoxic RF ISACC VMN metastatic breast cancer transaminitis obesity pHTN NIDDM HTN Lactic acidosis s/p TPA, c/w drip, followed by heparin drip no blood draw 24 hr pna gp vs gn? cardio reccs appreciated gentle diuresis ISS hold home mets trend cr s/p contrast follow culture pulm consult ctpe repeat tomorrow diet cardiac dvt ppx on heparin gi ppx protonix poor prognosis condition critical DNR DNI 45 minutes spent discussing treatment options and intubation, patient understood risk of TPA and no intubation and would proceed 35 minutes with family discussion today re goals of care crit care time 35 minutes Plan discussed with: Patient My Orders Orders - CATALINO DELATORRE MD Procedure Category Date Status Time Heparin Per Pharmacy [facility] 12/12/24 In Process Protocol 11:24 Apixaban (Eliquis) PHA 12/12/24 In Process 22:00 Apixaban (Eliquis) PHA 12/19/24 In Process 22:00 Complete Blood Count LAB 12/14/24 Verified 04:00 Comprehensive LAB 12/14/24 Verified Metabolic Panel 04:00 Magnesium LAB 12/14/24 Verified 04:00 Phosphorus LAB 12/14/24 Verified 04:00 Magnesium Kevin PHA 12/13/24 Transmitted 09:00 Potassium Phosphate PHA 12/14/24 Transmitted 08:00 Furosemide Tablet PHA 12/13/24 Transmitted (Lasix Tablet) 10:00 Pantoprazole Tablet PHA 12/14/24 Transmitted (Protonix Tablet) 06:00 Pt Request For Service PT 12/13/24 Logged 08:37 Date of Service: Dec 13, 2024 Billing Provider: CATALINO DELATORRE MD Common Visit Codes: [id number] CARE 30-74 MIN CATALINO DELATORRE MD Dec 13, 2024 08:42
[2024-12-13] MEDS ORDERED: FUROSEMIDE 20 MG/2 ML VIAL IV SCH (10:00)
[2024-12-13] MEDS: FUROSEMIDE 20 MG TAB PO SCH (10:24)
[2024-12-13] MEDS: MAGNESIUM SULFATE 1GM/100ML 100 ML IV SCH (10:24)
[2024-12-13] MEDS: POTASSIUM PHOSPHATE 44 MEQ in D5W 5% 250 ML IV ONE (18:24)
--- NOTE | 2024-12-13 23:13 | DVHPN2 ---
Subjective DOS: 12/13/2024 Patient seen and examined at bedside. Remains on supplemental oxygen Overnight events reviewed. Changes from previous H/P or p: No Changes Eyes: No Pain, No Vision change, No Conjunctivae inflammation, No Eyelid inflammation, No Other, No Redness ENT: No Ear pain, No Ear discharge, No Nose pain, No Nose discharge, No Nose congestion, No Mouth pain, No Mouth swelling, No Throat pain, No Throat swelling, No Other Cardiovascular: Edema Respiratory: Shortness of breath, SOB with excertion Gastrointestinal: No Nausea, No Vomiting, No Abdominal Pain, No Diarrhea, No Constipation, No Melena, No Hematochezia, No Other Genitourinary: No Dysuria, No Frequency, No Incontinence, No Hematuria, No Retention, No Other Musculoskeletal: No other, No neck pain, No shoulder pain, No arm pain, No back pain, No hand pain, No leg pain, No foot pain Skin: No Rash, No Lesions, No Jaundice, No Bruising, No Other Objective Vitals Vital Signs Date Time Temp Pulse Resp B/P (MAP) Pulse Ox O2 Delivery O2 Flow Rate FiO2 12/13/24 21:00 97.2 105 18 155/69 (97) 96 97.2 12/13/24 20:00 Nasal Cannula* 3 32 Intake/Output Intake and Output 12/13/24 07:00 Intake Total 2857.0 ml Output Total 1100 ml Balance 1757.0 ml Intake Oral 2480 ml IV Total 377.0 ml Output Urine Total 1100 ml # Bowel Movements 1 Exam Gen.: Patient lying in bed in no apparent distress. On supplemental oxygen. Head: Normocephalic, atraumatic. Eyes: EOMI/PERRLA. Ears: Normal hearing. Normal anatomy. Neck/trachea: Trachea midline, supple. Nose: Normal external anatomy. Mouth: Moist mucous membranes. Chest: Decreased air entry bilaterally. No wheezing or rhonchi. Cardiovascular: Positive S1, positive S2. Regular rate and rhythm. Abdomen: Positive bowel sounds in all 4 quadrants. Soft, non-tender, non- distended. : Deferred. Rectal: Deferred. Skin: Warm, dry. Intact. Extremities: 2+ radial pulses bilaterally. No lower extremity edema. Neuro: Awake, alert, oriented x3. No gross motor or sensory deficits. Cranial nerves II through XII intact. Gait not assessed. Medications Current Medications Medications Dose Ordered Sig/Edouard Route Start Time Stop Time Status Last Admin Dose Admin Nitroglycerin 0.4 mg Q5MINP PRN SL 12/08/24 22:15 Morphine Sulfate 2 mg Q30M PRN IV 12/08/24 22:15 Ipratropium [place] 0.5 mg Q6HWA NEB 12/09/24 06:00 12/13/24 19:26 0.5 MG Azithromycin 250 ml @ 125 mls/hr DAILY IV 12/10/24 10:00 12/13/24 10:24 125 MLS/HR Heparin Sodium/ Dextrose 250 ml @ 16.902 mls/ hr [id number] IV 12/09/24 15:30 UNV Acetaminophen 650 mg Q4HP PRN PO 12/09/24 21:15 12/11/24 15:40 650 MG Ceftriaxone Sodium 50 ml @ 100 mls/hr DAILY@09 IV 12/11/24 09:00 12/13/24 09:16 100 MLS/HR Apixaban 10 mg BID PO 12/12/24 22:00 12/19/24 21:59 12/13/24 22:41 10 MG Apixaban 5 mg BID PO 12/19/24 22:00 Potassium Phosphate 44 meq/ Dextrose 260 ml @ 32.5 mls/hr DAILY@BREAKFAST IV 12/14/24 08:00 12/17/24 07:59 Furosemide 40 mg DAILY PO 12/13/24 10:00 12/13/24 10:24 40 MG Pantoprazole Sodium 40 mg DAILY@0600 PO 12/14/24 06:00 Laboratory Results Laboratory Tests 12/12/24 03:55 12/13/24 02:53 Chemistry Test 12/13/24 02:53 Calcium Level 7.9 mg/dL (8.7-10.4) L Magnesium Level 1.6 mg/dL (1.6-2.6) Phosphorus Level 1.2 mg/dL (2.4-5.1) L Urinalysis Test 12/09/24 04:05 Urine Color Light-yellow (Yellow) Urine Clarity Clear (Clear) Urine pH 5.0 (5.0-9.0) Urine Specific [place] 1.013 (1.001-1.035) Urine Protein Negative (Negative) Urine Ketones Negative (Negative) Urine Blood Negative /uL (Negative) Urine Nitrite Negative (Negative) Urine Bilirubin Negative (Negative) Urine Urobilinogen Normal mg/dL (Negative) Urine Leukocyte Esterase Negative /uL (Negative) Urine RBC <1 /hpf (0 - 4) Urine Microscopic WBC 4 /HPF (0-5) Urine Squamous Epithelial Cells None seen /hpf (<5) Urine Renal Epithelial Cells Few /hpf (None Seen) Urine Bacteria None seen /hpf (None Seen) Urine Hyaline Casts Mod /lpf (0 - 2) Urine Glucose Normal mg/dL (Normal) Microbiology Microbiology Date/Time Source Procedure Growth Status 12/09/24 17:15 Nose MRSA Screen - Final Complete 12/09/24 04:05 Voided Urine Urine Culture - Final Complete 12/08/24 18:38 Blood Blood Culture - Final NO GROWTH AFTER 5 DAYS OF INCUBATION. Complete 12/08/24 13:09 Sputum Gram Stain - Final Complete 12/08/24 13:09 Sputum Respiratory Culture - Final Complete Assessment/Plan Assessment/Plan Impression: Acute hypoxic respiratory failure Dependence on supplemental oxygen Pulmonary embolism Deep vein thrombosis Sepsis 2/2 viral pneumonia Metastatic breast cancer, mets to pleura Obesity - BMI 35.5 Events: Improved oxygen requirements Remains on 3 LPM NC Continue to taper O2 as tolerated No overnight events. Patient is out of bed to chair. Physical Therapy evaluation Status post tPA Transitioned off heparin drip; continue anticoagulation w/ Eliquis 5 mg PO b.i.d. Continue antibiotics Continue bronchodilators Incentive spirometry Protonix for GI ppx Monitor renal function. Monitor electrolytes. Supplement as necessary. K, mag supplementation Labs and imaging reviewed. Rest of plan as noted below. Plan: Supplemental oxygen Titrate to keep O2 sats above 92%. S/p tPA (Alteplase). Neuro checks post TPA. Continue anticoagulation Continue antibiotics Continue bronchodilators Incentive spirometry Monitor renal function. Monitor electrolytes. Supplement as necessary. Monitor ins and outs. 12/09 - S/p central line placement by Dr. Larios. S/p Alteplase dose. Monitor neuro checks. Monitor hemoglobin Transfuse if less than 7.0 g/dL. Diet and lifestyle modifications for weight reduction Obesity complicates all care GI prophylaxis - Protonix. Prognosis: Poor given patient's multiple co-morbidities. Rest of plan per hospitalist and other consultants. Thank you, Dr. Varela, for allowing me to participate in this patient's care. Further recommendations will depend on the patient's clinical course. Please do not hesitate to contact me if you have any questions or concerns. This medical document was created using an electronic medical record system with [employer] dictation system. Although these documentations are being carefully reviewed, there may still be some phonetic and typographical changes. The errors are purely typographical, due to imperfection on the software program, and do not reflect any compromise in the patient's medical care. Plan discussed with: Patient, Other (RN) Visit Coding Pulmonary Billing Provider: SUDEEP VARELA MD Date of Service if different f: Dec 13, 2024 Common Visit Codes: [id number] INP/OBS CARE(HIGH) SUDEEP VARELA MD Dec 13, 2024 23:13
[2024-12-14] VITALS (16 sets, daily range): BP systolic 102–178; BP diastolic 71–95; PULSE 94–113; RESP 16–20; TEMP 97.3–98.3; O2SAT 91–100
[2024-12-14] MEDS ORDERED: PNEUMOCOCCAL VACC POLYS 25 MCG/0.5 ML VIAL IM ONE (05:30)
[2024-12-14] MEDS: PANTOPRAZOLE 40 MG TAB PO SCH (06:21)
[2024-12-14 07:46] LABS: Hematocrit 26.3 % (36.0-46.0); Hemoglobin 8.7 g/dL (12.2-16.2); Mean Corpuscular Hemoglobin 26.9 pg (28.0-32.0); Mean Corpuscular Volume 81.8 fL (80.0-100.0); Nucleated Red Blood Cells % 0.2 %
[2024-12-14 08:03] LABS: Alkaline Phosphatase 114 U/L (46-116); Anion Gap 9 (5-15); BUN/Creatinine Ratio 12.5 (10.0-20.0); Carbon Dioxide 27 mmol/L (20-31); Chloride 101 mmol/L (98-107); Glucose 105 mg/dL (74-106); Magnesium 1.7 mg/dL (1.6-2.6); Potassium 3.6 mmol/L (3.5-5.1); Sodium 137 mmol/L (136-145)
[2024-12-14 08:04] LABS: Alanine Aminotransferase 113 U/L (7-40); Albumin 3.1 g/dL (3.2-4.8); Bilirubin, Total 0.5 mg/dL (0.2-1.0); Blood Urea Nitrogen 7 mg/dL (9-23); Calcium 8.2 mg/dL (8.7-10.4); Total Protein 5.3 g/dL (5.7-8.2)
--- NOTE | 2024-12-14 10:36 | DVHPN2 ---
Assessment/Plan Assessment/Plan Subjective 74 F with hx of breast ca s/p partial mastectomy with pleural mets, HTN, PLEF, DVT, admitted for b/l DVT, patient was tachycardic and tachypneic on admission, with ISACC. CTPE was done with submassive b/l PE. patient received TPA and started on heparin drip. seen by cardio and pulm. empirically covered with abx and admitted to ICU. had family discussion regarding code status and goals of care with family and patient, elected to be DNR DNI. Later patient improved, o2 requirements decreased, tachycardia improved. Repeat CT showed no decrease in clot burden. Repeat echo was done pending read but slight improvement in RVSP. seen today, on 3 L, comfortable, tachy improved. pt ongoing, dc planning Objective AOx4 increased WOB on 10L oximyzer b/l coarse rhonchi s1 s2 tachycardic abdomen soft nontender LE edema b/l warm labs ekg imaging reviewed POCUS done, TDS, mcconnel sign present, RV enlarged, IVC dilated but collapsible with inspiration, TAPSE 0.8cm Assessment & Plan B/L obstructive submassive PE s/p TPA b/l DVT obstructive shock hypoxic RF ISACC VMN metastatic breast cancer transaminitis obesity pHTN RV failure NIDDM HTN Lactic acidosis s/p TPA, c/w drip, followed by heparin drip now on eliquis no blood draw 24 hr pna gp vs gn? cardio reccs appreciated gentle diuresis ISS hold home meds trend cr s/p contrast follow culture pulm consult ctpe repeat no decrease in clot burden plan for dc home with home pt and home o2 diet cardiac dvt ppx on eliquis gi ppx protonix poor prognosis condition critical DNR DNI 45 minutes spent discussing treatment options and intubation, patient understood risk of TPA and no intubation and would proceed 35 minutes with family discussion today re goals of care Plan discussed with: Patient Date of Service: Dec 14, 2024 Billing Provider: CATALINO DELATORRE MD Common Visit Codes: [id number] INP/OBS CARE(HIGH) CATALINO DELATORRE MD Dec 14, 2024 10:36
[2024-12-14] MEDS: POTASSIUM PHOSPHATE 44 MEQ in D5W 5% 250 ML IV SCH (13:40)
--- NOTE | 2024-12-14 14:31 | DVHPN2 ---
Progress Note - Dictate Date Seen: Dec 14, 2024 Has the PT tested + for MRSA If YES, has PT been informed?: No Medical Necessity Reason Pt with a Central, PICC or Fol: No vital signs Vital Sign Date Time Temp Pulse Resp B/P (MAP) Pulse Ox O2 Delivery O2 Flow Rate FiO2 12/14/24 13:00 98.0 98 18 102/87 (92) 100 98.0 12/14/24 12:02 Nasal Cannula 3.0 12/14/24 12:02 32 Total Intake and Output 12/13/24 12/13/24 12/14/24 15:00 23:00 07:00 Intake Total 1180 ml 125 ml 500 ml Output Total 2400 ml 500 ml 800 ml Balance -1220 ml -375 ml -300 ml medications Current Medications Medications Dose Ordered Sig/Edouard Route Start Time Stop Time Status Last Admin Dose Admin Nitroglycerin 0.4 mg Q5MINP PRN SL 12/08/24 22:15 Morphine Sulfate 2 mg Q30M PRN IV 12/08/24 22:15 Ipratropium [place] 0.5 mg Q6HWA NEB 12/09/24 06:00 12/14/24 12:01 0.5 MG Azithromycin 250 ml @ 125 mls/hr DAILY IV 12/10/24 10:00 12/14/24 10:15 125 MLS/HR Heparin Sodium/ Dextrose 250 ml @ 16.902 mls/ hr [id number] IV 12/09/24 15:30 UNV Acetaminophen 650 mg Q4HP PRN PO 12/09/24 21:15 12/14/24 13:41 650 MG Ceftriaxone Sodium 50 ml @ 100 mls/hr DAILY@09 IV 12/11/24 09:00 12/14/24 08:31 100 MLS/HR Apixaban 10 mg BID PO 12/12/24 22:00 12/19/24 21:59 12/14/24 08:33 10 MG Apixaban 5 mg BID PO 12/19/24 22:00 Potassium Phosphate 44 meq/ Dextrose 260 ml @ 32.5 mls/hr DAILY@BREAKFAST IV 12/14/24 08:00 12/17/24 07:59 12/14/24 13:40 32.5 MLS/HR Furosemide 40 mg DAILY PO 12/13/24 10:00 12/14/24 08:33 40 MG Pantoprazole Sodium 40 mg DAILY@0600 PO 12/14/24 06:00 12/14/24 06:21 40 MG laboratory and microbiology Laboratory Tests 12/14/24 06:48 Test 12/14/24 06:48 Range/Units Serum Glucose 105 74-106 mg/dL Assessment/Plan Acute hypoxic respiratory failure Dependence on supplemental oxygen Pulmonary embolism Deep vein thrombosis Sepsis 2/2 viral pneumonia Metastatic breast cancer, mets to pleura Obesity - BMI 35.5 Events: oxygen requirements on 3 LPM NC Status post tPA for massive PE on eliquis Plan: Supplemental oxygen Titrate to keep O2 sats above 92%. S/p tPA (Alteplase). Neuro checks post TPA. Continue anticoagulation Continue antibiotics Continue bronchodilators Incentive spirometry Monitor renal function. Monitor electrolytes. Supplement as necessary. Monitor ins and outs. 12/09 - S/p central line placement by Dr. Larios. S/p Alteplase dose. Monitor neuro checks. Monitor hemoglobin Transfuse if less than 7.0 g/dL. Diet and lifestyle modifications for weight reduction Obesity complicates all care GI prophylaxis - Protonix. Dietary Evaluation Review Comments: 1) Ensure High Protein 240ml TID 2) Monitor PO intake, lab values, weight trend, and I/O Expected Outcomes/Goals: To meet >75% estimated needs Lab values to improve Fu 3-5 days Plan discussed with: Patient FREDRICK BUENO MD Dec 14, 2024 14:31
[2024-12-15] VITALS (15 sets, daily range): BP systolic 102–175; BP diastolic 68–90; PULSE 91–113; RESP 15–19; TEMP 97.2–98.1; O2SAT 97–100
[2024-12-15 05:39] LABS: Hematocrit 26.5 % (36.0-46.0); Hemoglobin 8.8 g/dL (12.2-16.2); Mean Corpuscular Hemoglobin 26.9 pg (28.0-32.0); Mean Corpuscular Volume 80.7 fL (80.0-100.0); Nucleated Red Blood Cells % 0.1 %
[2024-12-15 05:52] LABS: Chloride 101 mmol/L (98-107); Potassium 4.1 mmol/L (3.5-5.1); Sodium 138 mmol/L (136-145)
[2024-12-15 05:53] LABS: Anion Gap 8 (5-15); Calcium 8.5 mg/dL (8.7-10.4); Carbon Dioxide 29 mmol/L (20-31)
[2024-12-15 05:58] LABS: BUN/Creatinine Ratio 17.2 (10.0-20.0); Blood Urea Nitrogen 10 mg/dL (9-23)
[2024-12-15 06:09] LABS: Glucose 107 mg/dL (74-106)
--- NOTE | 2024-12-15 11:27 | DVHPN2 ---
Subjective Patient continues to report having some shortness of breath Reviewed: Care Plan, H&P, Labs, Medications Changes from previous H/P or p: No Changes General: Per HPI Eyes: No Pain, No Vision change, No Conjunctivae inflammation, No Eyelid inflammation, No Other, No Redness ENT: No Ear pain, No Ear discharge, No Nose pain, No Nose discharge, No Nose congestion, No Mouth pain, No Mouth swelling, No Throat pain, No Throat swelling, No Other Cardiovascular: Edema Respiratory: Shortness of breath, SOB with excertion Gastrointestinal: No Nausea, No Vomiting, No Abdominal Pain, No Diarrhea, No Constipation, No Melena, No Hematochezia, No Other Genitourinary: No Dysuria, No Frequency, No Incontinence, No Hematuria, No Retention, No Other Musculoskeletal: No other, No neck pain, No shoulder pain, No arm pain, No back pain, No hand pain, No leg pain, No foot pain Skin: No Rash, No Lesions, No Jaundice, No Bruising, No Other Objective Vitals Vital Signs Date Time Temp Pulse Resp B/P (MAP) Pulse Ox O2 Delivery O2 Flow Rate FiO2 12/15/24 09:00 98.0 108 18 147/71 (96) 97 98.0 12/15/24 07:50 Nasal Cannula* 3 32 Intake/Output Intake and Output 12/15/24 07:00 Intake Total 1675 ml Output Total 3200 ml Balance -1525 ml Intake Oral 1375 ml IV Total 300 ml Output Urine Total 3200 ml General Appearance: Alert, Oriented X3, Cooperative, mild distress HEENT: Atraumatic, PERRLA Lungs: Clear to auscultation, Normal air movement Cardiovascular: Normal S1, Normal S2 Musculoskeletal: Normal sensory function, Normal motor function Skin: Dry, Intact Psych/Mental Status: Mental status NL, Mood NL Medications Current Medications Medications Dose Ordered Sig/Edouard Route Start Time Stop Time Status Last Admin Dose Admin Nitroglycerin 0.4 mg Q5MINP PRN SL 12/08/24 22:15 Morphine Sulfate 2 mg Q30M PRN IV 12/08/24 22:15 Ipratropium [place] 0.5 mg Q6HWA NEB 12/09/24 06:00 12/15/24 07:58 0.5 MG Azithromycin 250 ml @ 125 mls/hr DAILY IV 12/10/24 10:00 12/14/24 10:15 125 MLS/HR Heparin Sodium/ Dextrose 250 ml @ 16.902 mls/ hr [id number] IV 12/09/24 15:30 UNV Acetaminophen 650 mg Q4HP PRN PO 12/09/24 21:15 12/14/24 13:41 650 MG Ceftriaxone Sodium 50 ml @ 100 mls/hr DAILY@09 IV 12/11/24 09:00 12/14/24 08:31 100 MLS/HR Apixaban 10 mg BID PO 12/12/24 22:00 12/19/24 21:59 12/14/24 21:48 10 MG Apixaban 5 mg BID PO 12/19/24 22:00 Potassium Phosphate 44 meq/ Dextrose 260 ml @ 32.5 mls/hr DAILY@BREAKFAST IV 12/14/24 08:00 12/17/24 07:59 12/15/24 08:00 32.5 MLS/HR Furosemide 40 mg DAILY PO 12/13/24 10:00 12/14/24 08:33 40 MG Pantoprazole Sodium 40 mg DAILY@0600 PO 12/14/24 06:00 12/15/24 06:21 40 MG Laboratory Results Laboratory Tests 12/15/24 05:29 Chemistry Test 12/15/24 05:29 Calcium Level 8.5 mg/dL (8.7-10.4) L Urinalysis Test 12/09/24 04:05 Urine Color Light-yellow (Yellow) Urine Clarity Clear (Clear) Urine pH 5.0 (5.0-9.0) Urine Specific [place] 1.013 (1.001-1.035) Urine Protein Negative (Negative) Urine Ketones Negative (Negative) Urine Blood Negative /uL (Negative) Urine Nitrite Negative (Negative) Urine Bilirubin Negative (Negative) Urine Urobilinogen Normal mg/dL (Negative) Urine Leukocyte Esterase Negative /uL (Negative) Urine RBC <1 /hpf (0 - 4) Urine Microscopic WBC 4 /HPF (0-5) Urine Squamous Epithelial Cells None seen /hpf (<5) Urine Renal Epithelial Cells Few /hpf (None Seen) Urine Bacteria None seen /hpf (None Seen) Urine Hyaline Casts Mod /lpf (0 - 2) Urine Glucose Normal mg/dL (Normal) Microbiology Microbiology Date/Time Source Procedure Growth Status 12/09/24 17:15 Nose MRSA Screen - Final Complete 12/09/24 04:05 Voided Urine Urine Culture - Final Complete 12/08/24 18:38 Blood Blood Culture - Final NO GROWTH AFTER 5 DAYS OF INCUBATION. 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 Continue anticoagulation with Eliquis -O2 supplementation to keep saturation greater than 92% -social service consultation for DC planning with home health services and physical therapy -gentle diuresis -continue antibiotic therapy while in the hospital Total time spent with patient discussing and formulating plan of care: 35 minutes. This medical document was created using an electronic medical record system with [employer] dictation system. Although this document has been carefully reviewed, there may still be some phonetic and typographical errors. These areas are purely typographical due to imperfections of the software programs, and do not reflect any compromise in the patient's medical care. Plan discussed with: Patient, Other (RN) My Orders Orders - VICENTE MARQUIS NP Procedure Category Date Status Time * Densitometer Reader CONS 12/15/24 Verified Consult Date of Service: Dec 15, 2024 Billing Provider: VICENTE MARQUIS NP Common Visit Codes: [id number] INP/OBS CARE(HIGH) VICENTE MARQUIS NP Dec 15, 2024 11:27
--- NOTE | 2024-12-15 13:18 | DVHSR ---
APPROVED REPORT EXAM: LIMITED Two-dimensional and M-mode echocardiogram with Doppler and color Doppler. Blood Pressure: 102/87 mmHg INDICATION PE RISK FACTORS Height: 64, Weight: 196 DIMENSIONS LVDd4.0 (3.8-5.7cm)LA (2D) (1.9-4.0cm)Aortic Root (2.0-3.7cm) LVDs2.6 (2.5-4.0cm)LA (MM) (1.9-4.0cm)Aortic Cusp Exc (1.5-2.0cm) EF (%) 64.0 (55-70%)Rt. Atrium5.2 (1.9-4.0cm)Asc. Aorta cm Mitral Valve MitralMitral Stenosis E/A ratio0.02D MVAcm2 Tricuspid Valve TR Velocity3.99m/s [id number] Other Information Technically limited study due to eval for right sided pressure. Patient laying flat on her back. Conclusion lvef 50% severe RV enlargement and dysfunction is noted severe pulm htn, pasp >85 mmhg this may be improved from previous echo but still severe RA enlarged
--- NOTE | 2024-12-15 19:01 | DVHPN2 ---
Progress Note - Dictate Date Seen: Dec 15, 2024 Has the PT tested + for MRSA If YES, has PT been informed?: No Medical Necessity Reason Pt with a Central, PICC or Fol: No vital signs Vital Sign Date Time Temp Pulse Resp B/P (MAP) Pulse Ox O2 Delivery O2 Flow Rate FiO2 12/15/24 18:06 97.2 108 15 102/68 (79) 97 97.2 12/15/24 17:54 Nasal Cannula 3.0 12/15/24 17:54 32 Total Intake and Output 12/14/24 12/14/24 12/15/24 15:00 23:00 07:00 Intake Total 300 ml 950 ml 425 ml Output Total 1700 ml 1500 ml Balance 300 ml -750 ml -1075 ml medications Current Medications Medications Dose Ordered Sig/Edouard Route Start Time Stop Time Status Last Admin Dose Admin Nitroglycerin 0.4 mg Q5MINP PRN SL 12/08/24 22:15 Morphine Sulfate 2 mg Q30M PRN IV 12/08/24 22:15 Ipratropium [place] 0.5 mg Q6HWA NEB 12/09/24 06:00 12/15/24 17:54 0.5 MG Azithromycin 250 ml @ 125 mls/hr DAILY IV 12/10/24 10:00 12/15/24 18:05 125 MLS/HR Heparin Sodium/ Dextrose 250 ml @ 16.902 mls/ hr [id number] IV 12/09/24 15:30 UNV Acetaminophen 650 mg Q4HP PRN PO 12/09/24 21:15 12/15/24 13:27 650 MG Ceftriaxone Sodium 50 ml @ 100 mls/hr DAILY@09 IV 12/11/24 09:00 12/15/24 16:49 100 MLS/HR Apixaban 10 mg BID PO 12/12/24 22:00 12/19/24 21:59 12/15/24 13:21 10 MG Apixaban 5 mg BID PO 12/19/24 22:00 Potassium Phosphate 44 meq/ Dextrose 260 ml @ 32.5 mls/hr DAILY@BREAKFAST IV 12/14/24 08:00 12/17/24 07:59 12/15/24 08:00 32.5 MLS/HR Furosemide 40 mg DAILY PO 12/13/24 10:00 10/4/25 13:23 40 MG Pantoprazole Sodium 40 mg DAILY@0600 PO 12/14/24 06:00 12/15/24 06:21 40 MG laboratory and microbiology Laboratory Tests 12/15/24 05:29 Test 12/15/24 05:29 Range/Units Serum Glucose 107 H 74-106 mg/dL Assessment/Plan Acute hypoxic respiratory failure Dependence on supplemental oxygen Pulmonary embolism Deep vein thrombosis Sepsis 2/2 viral pneumonia Metastatic breast cancer, mets to pleura Obesity - BMI 35.5 Events: oxygen requirements on 3 LPM NC Status post tPA for massive PE on eliquis Plan: Supplemental oxygen Titrate to keep O2 sats above 92%. S/p tPA (Alteplase). Neuro checks post TPA. Continue anticoagulation Continue antibiotics Continue bronchodilators Incentive spirometry Monitor renal function. Monitor electrolytes. Supplement as necessary. Monitor ins and outs. 12/09 - S/p central line placement by Dr. Larios. S/p Alteplase dose. Monitor neuro checks. Monitor hemoglobin Transfuse if less than 7.0 g/dL. Diet and lifestyle modifications for weight reduction Obesity complicates all care GI prophylaxis - Protonix. Dietary Evaluation Review Comments: 1) Ensure High Protein 240ml TID 2) Monitor PO intake, lab values, weight trend, and I/O Expected Outcomes/Goals: To meet >75% estimated needs Lab values to improve Fu 3-5 days Plan discussed with: Patient FREDRICK BUENO MD Dec 15, 2024 19:01
[2024-12-16] VITALS (9 sets, daily range): BP systolic 151–179; BP diastolic 80–88; PULSE 95–107; RESP 16–20; TEMP 98; O2SAT 94–100
[2024-12-16] MEDS ORDERED: APIX5TAB PO (11:18)
--- NOTE | 2024-12-16 11:34 | DVHDS2 ---
Discharge Summary Date of Admission Dec 08, 2024 at 22:01 Date of Discharge: Dec 16, 2024 Admitting Diagnosis Bilateral lower extremity DVT Labs/Diagnostic Data: Laboratory Results Test 12/15/24 05:29 12/14/24 06:48 12/12/24 10:05 12/10/24 09:27 White Blood Count 8.1 10^3/uL (4.4-10.8) Red Blood Count 3.29 10^6/uL (4.0-5.20) Hemoglobin 8.8 g/dL (12.2-16.2) Hematocrit 26.5 % (36.0-46.0) Mean Corpuscular Volume 80.7 fL (80.0-100.0) Mean Corpuscular Hemoglobin 26.9 pg (28.0-32.0) Mean Corpuscular Hemoglobin Concent 33.3 g/dL (32.0-36.0) Red Cell Distribution Width 21.7 % (11.8-14.3) Platelet Count 238 10^3/uL (140-450) Mean Platelet Volume 6.6 fL (6.9-10.8) Neutrophils (%) (Auto) 76.6 % (37.0-80.0) Lymphocytes (%) (Auto) 17.3 % (10.0-50.0) Monocytes (%) (Auto) 4.5 % (0.0-12.0) Eosinophils (%) (Auto) 1.3 % (0.0-7.0) Basophils (%) (Auto) 0.3 % (0.0-2.0) Neutrophils # (Auto) 6.2 10 ^3/uL (1.6-8.6) Lymphocytes # (Auto) 1.4 10 ^3/uL (0.4-5.4) Monocytes # (Auto) 0.4 10 ^3/uL (0-1.3) Eosinophils # (Auto) 0.1 10 ^3/uL (0-0.8) Basophils # (Auto) 0 10 ^3/uL (0-0.2) Nucleated Red Blood Cells 0.1 % Sodium Level 138 mmol/L (136-145) Potassium Level 4.1 mmol/L (3.5-5.1) Chloride Level 101 mmol/L (98-107) Carbon Dioxide Level 29 mmol/L (20-31) Anion Gap 8 (5-15) Blood Urea Nitrogen 10 mg/dL (9-23) Creatinine 0.58 mg/dL (0.550-1.02) Glomerular Filtration Rate Calc 96 mL/min (>90) BUN/Creatinine Ratio 17.2 (10.0-20.0) Serum Glucose 107 mg/dL (74-106) Calcium Level 8.5 mg/dL (8.7-10.4) Phosphorus Level 2.2 mg/dL (2.4-5.1) Magnesium Level 1.7 mg/dL (1.6-2.6) Total Bilirubin 0.5 mg/dL (0.2-1.0) Aspartate Amino Transferase (AST) 35 U/L (13-40) Alanine Aminotransferase (ALT) 113 U/L (7-40) Alkaline Phosphatase 114 U/L (46-116) Total Protein 5.3 g/dL (5.7-8.2) Albumin 3.1 g/dL (3.2-4.8) Prothrombin Time 12.4 sec (9.3-11.8) Prothrombin Time INR 1.19 (0.9-1.15) Activated Partial Thromboplast Time 57.4 SEC (24.5-34.5) Lactic Acid Level 1.9 mmol/L (0.4-2.0) Test 12/10/24 03:51 12/09/24 17:04 12/09/24 04:05 12/08/24 23:02 B-Type Natriuretic Peptide 694.84 pg/mL (0-100) Differential Total Cells Counted 100.0 (100) Neutrophils % (Manual) 90 (37.0-80.0) Band Neutrophils % (Manual) 0 Lymphocytes % (Manual) 5 (10.0-50.0) Monocytes % (Manual) 5 (0-12) Eosinophils % (Manual) 0 (0-7) Basophils % (Manual) 0 (0.0-2.0) Metamyelocytes % (manual) 0 Myelocytes % (Manual) 0 Promyelocytes % (Manual) 0 Blast Cells % (Manual) 0 Reactive Lymphocytes 0 Platelet Estimate Adequate Anisocytosis (manual) Slight Urine Color Light-yellow (Yellow) Urine Clarity Clear (Clear) Urine pH 5.0 (5.0-9.0) Urine Specific [place] 1.013 (1.001-1.035) Urine Protein Negative (Negative) Urine Ketones Negative (Negative) Urine Blood Negative /uL (Negative) Urine Nitrite Negative (Negative) Urine Bilirubin Negative (Negative) Urine Urobilinogen Normal mg/dL (Negative) Urine Leukocyte Esterase Negative /uL (Negative) Urine RBC <1 /hpf (0 - 4) Urine Microscopic WBC 4 /HPF (0-5) Urine Squamous Epithelial Cells None seen /hpf (<5) Urine Renal Epithelial Cells Few /hpf (None Seen) Urine Bacteria None seen /hpf (None Seen) Urine Hyaline Casts Mod /lpf (0 - 2) Urine Glucose Normal mg/dL (Normal) Troponin I High Sensitivity 62 ng/L (</=34) Test 12/08/24 22:27 12/08/24 05:40 Blood Gas Specimen Type Arterial Blood Gas Sample Site Right radial Blood Gas Patient Temperature 37.0 Arterial Blood Date Drawn [id number] Arterial Blood pH 7.360 (7.350-7.450) Arterial Blood Partial Pressure CO2 24.4 mmHg (32.0-45.0) Arterial Blood Partial Pressure O2 68.5 mmHg (83.0-108.0) Arterial Blood HCO3 13.5 mmol/L (21.0-28.0) Arterial Blood Oxygen Saturation 89.5 % (94.0-98.0) Arterial Blood Base Excess -10.2 mmol/L (-2.0-3.0) Arterial Blood Oxyhemoglobin 88.3 % (94.0-98.0) Arterial Blood Carboxyhemoglobin 0.8 % (0.5-1.5) Arterial Blood Methemoglobin 0.5 % (0.0-1.5) Eloy Test Yes Blood Gas Total Hemoglobin 12.70 g/dL (12.0-16.0) Blood Gas Liter Flow 9.00 Blood Gas Modality Mask - simple Blood Gas Spontaneous Rate 26 FiO2 % 45.0 Specimen Drawn By Emily nichols rt Influenza Type A Antigen Negative (Negative) Influenza Type B Antigen Negative (Negative) SARS-CoV-2 Antigen (Rapid) Negative (NEGATIVE) Other Laboratory Tests 12/15/24 05:29 Brief Hx & Hospital Course: History of Present Illness 74 y/o F presenting with progressive worsening SOB, fatigue, generalized weakness, and bilateral LE edema. SOB occurs at rest and is worse with exertion. No associated CP, fever, chills, or sputum production. Reports requiring increasing amounts of home O2, which prompted visit. Denies any other acute complaints including fever, chills, CP, abdominal pain, irregular bowel/bladder, motor weakness, or sensory deficit. Course of hospitalization: Patient had CT scan of the chest which revealed large right main pulmonary artery thrombus. Cardiology consultation was obtained. Echocardiogram was performed. Patient was found to be high-risk for procedure giving her underlying pulmonary hypertension. Patient was started on full-dose anticoagulation which was transitioned to Eliquis. Long discussion was made with the patient by primary hospitalist, Dr. Larios regarding prognosis. Patient was agreeable to be discharged home today, with home health services. Patient states that she has oxygen at home. Patient will be given prescription for Eliquis. She will continue all previous home medications and follow up with her PCP, Dr. Ramón Trinh in 1-2 weeks. All questions answered. Physical examination General: Alert and Oriented x3. No acute distress. Well-nourished. Obese Eyes: EOMI. Anicteric. HENT: Moist mucous membranes. Lungs: Clear to auscultation bilaterally. No accessory muscle use. Cardiovascular: Regular rate and rhythm. No murmur. No JVD. Abdomen: Soft, non-tender and non-distended. No palpable masses. Extremities: No edema. Non-tender. Skin: No rashes or lesions. Warm. Neurologic: No focal neurological deficits. CN II-XII grossly intact, but not individually tested. Psychiatric: Cooperative. Appropriate mood and affect. Total time spent with patient discussing and formulating plan of care: 35 minutes. This medical document was created using an electronic medical record system with [employer] dictation system. Although this document has been carefully reviewed, there may still be some phonetic and typographical errors. These areas are purely typographical due to imperfections of the software programs, and do not reflect any compromise in the patient's medical care. 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 Ramón Trinh in 1-2 weeks Medications: Continue all previous home medications Eliquis 10 mg p.o. b.i.d. x7 days, which was started in the hospital than 5 mg p.o. b.i.d. Scheduled Amlodipine Besylate (Amlodipine Besylate), 1 TAB PO DAILY, (Reported) Apixaban Base (Eliquis), 5 MG PO BID Apixaban Base (Eliquis), 10 MG PO BID Baclofen (Baclofen), 1 TAB PO DAILY, (Reported) Carbamazepine (Carbamazepine Er), 1 TAB PO BID, (Reported) Celecoxib (CeleBREX CAPSULE), 1 CAP PO BID, (Reported) Cholecalciferol (Vitamin D3), 2,000 UNIT OR DAILY, (Reported) Clonazepam (KlonoPIN TABLET), 1 TAB PO BID, (Reported) Letrozole (Femara), 2.5 MG PO DAILY, (Reported) Lisinopril (Lisinopril), 10 MG PO DAILY, (Reported) Meloxicam (Meloxicam), 1 TAB PO DAILY, (Reported) Metformin Hydrochloride (Metformin Hcl Er), 1 TAB PO DAILY, (Reported) Omeprazole (Omeprazole Dr), 1 CAP PO DAILY, (Reported) Oxycodone HCl (Oxycodone Hydrochloride), 1 TAB PO QID, (Reported) Rivaroxaban (Xarelto Starter Pack 15 & 20 mg), 1 TAB PO BID Simvastatin (Simvastatin), 1 TAB PO QPM, (Reported) Tizanidine Hydrochloride (Zanaflex), 1 CAP PO QPM, (Reported) 36 Discharge Statement: "Patient was advised to return to the ER or call 911 if any headaches, dizziness, shortness of breath, chest pain, abdominal pain, bleeding, fevers, or worsening of medical condition. Patient was counseled about treatment plan, medications, possible side effects, patientverbalized understanding. All questions were answered to the best of my ability. This discharge took greater then 30 minutes in planning, reviewing documentation, counseling the patient, and discussing with other team members." ASSESSMENT ASSESSMENT Assessment Pulmonary embolism with cor pulmonale Bilateral DVT Date of Service: Dec 16, 2024 Billing Provider: VICENTE MARQUIS NP Common Visit Codes: [id number]/[id number] DISCH DAY >30min VICENTE MARQUIS NP Dec 16, 2024 11:34
--- NOTE | 2024-12-16 15:03 | DVHPN2 ---
Progress Note - Dictate Date Seen: Dec 16, 2024 Has the PT tested + for MRSA If YES, has PT been informed?: No Medical Necessity Reason Pt with a Central, PICC or Fol: No vital signs Vital Sign Date Time Temp Pulse Resp B/P (MAP) Pulse Ox O2 Delivery O2 Flow Rate FiO2 12/16/24 14:17 98.0 97 20 98 12/16/24 11:40 Nasal Cannula 3.0 12/16/24 11:40 32 12/16/24 11:20 168/80 Total Intake and Output 12/15/24 12/15/24 12/16/24 15:00 23:00 07:00 Intake Total 450 ml 800 ml Output Total 3300 ml 1000 ml Balance -2850 ml -200 ml medications Current Medications Medications Dose Ordered Sig/Edouard Route Start Time Stop Time Status Last Admin Dose Admin Nitroglycerin 0.4 mg Q5MINP PRN SL 12/08/24 22:15 Morphine Sulfate 2 mg Q30M PRN IV 12/08/24 22:15 Ipratropium [place] 0.5 mg Q6HWA NEB 12/09/24 06:00 12/16/24 11:39 0.5 MG Azithromycin 250 ml @ 125 mls/hr DAILY IV 12/10/24 10:00 12/15/24 18:05 125 MLS/HR Heparin Sodium/ Dextrose 250 ml @ 16.902 mls/ hr [id number] IV 12/09/24 15:30 UNV Acetaminophen 650 mg Q4HP PRN PO 12/09/24 21:15 12/15/24 20:19 650 MG Ceftriaxone Sodium 50 ml @ 100 mls/hr DAILY@09 IV 12/11/24 09:00 12/15/24 16:49 100 MLS/HR Apixaban 10 mg BID PO 12/12/24 22:00 12/19/24 21:59 12/16/24 11:19 10 MG Apixaban 5 mg BID PO 12/19/24 22:00 Potassium Phosphate 44 meq/ Dextrose 260 ml @ 32.5 mls/hr DAILY@BREAKFAST IV 12/14/24 08:00 12/17/24 07:59 12/15/24 08:00 32.5 MLS/HR Furosemide 40 mg DAILY PO 12/13/24 10:00 12/16/24 11:20 40 MG Pantoprazole Sodium 40 mg DAILY@0600 PO 12/14/24 06:00 12/16/24 06:28 40 MG laboratory and microbiology Laboratory Tests 12/15/24 05:29 Test 12/15/24 05:29 Range/Units Serum Glucose 107 H 74-106 mg/dL Assessment/Plan Acute hypoxic respiratory failure Dependence on supplemental oxygen Pulmonary embolism Deep vein thrombosis Sepsis 2/2 viral pneumonia Metastatic breast cancer, mets to pleura Obesity - BMI 35.5 Events: Low oxygen requirements On 3 LPM NC Status post tPA for massive PE on eliquis Plan: Supplemental oxygen Titrate to keep O2 sats above 92%. Continue antibiotics Continue bronchodilators Incentive spirometry Monitor renal function. Monitor electrolytes. Supplement as necessary. Monitor ins and outs. Monitor hemoglobin Transfuse if less than 7.0 g/dL. Diet and lifestyle modifications for weight reduction Obesity complicates all care Okay to discharge from pulmonary standpoint GI prophylaxis - Protonix. Dietary Evaluation Review Comments: 1) Ensure High Protein 240ml TID 2) Monitor PO intake, lab values, weight trend, and I/O Expected Outcomes/Goals: To meet >75% estimated needs Lab values to improve Fu 3-5 days Plan discussed with: Patient FREDRICK BUENO MD Dec 16, 2024 15:03
[2024-12-19] MEDS ORDERED: APIXABAN 5 MG TAB PO SCH (22:00)
== END 2024-12-16 15:30 | disposition home health service (06) | DRG 175 ==
LOC: EDBD 16:19 → ER 16:19 → OVERFLOW 22:01 → TELE-WESTW 22:47 → ICU WEST 12-09 13:32 → TELE-EAST 12-13 13:50
PROVIDERS: ADMIT Student in an Organized Health Care Education/Training Program; ATTEND Student in an Organized Health Care Education/Training Program
PROC: 05HM33Z Insertion of Infusion Device into Right Internal Jugular Vein, Percutaneous Approach (ICD-10-PCS; principal; 2024-12-09)
PROC: 3E03317 Introduction of Other Thrombolytic into Peripheral Vein, Percutaneous Approach (ICD-10-PCS; 2024-12-09)
PROC: 5A0935A Assistance with Respiratory Ventilation, Less than 24 Consecutive Hours, High Flow/Velocity Cannula (ICD-10-PCS; 2024-12-09)
PROC: 5A0935A Assistance with Respiratory Ventilation, Less than 24 Consecutive Hours, High Flow/Velocity Cannula (ICD-10-PCS; 2024-12-10)
PROC: 5A0935A Assistance with Respiratory Ventilation, Less than 24 Consecutive Hours, High Flow/Velocity Cannula (ICD-10-PCS; 2024-12-11)
DX: I26.09 Other pulmonary embolism with acute cor pulmonale (principal); A41.89 Other specified sepsis; I21.A1 Myocardial infarction type 2; J12.9 Viral pneumonia, unspecified; N17.0 Acute kidney failure with tubular necrosis; J96.21 Acute and chronic respiratory failure with hypoxia; E87.20 Acidosis, unspecified; I13.0 Hypertensive heart and chronic kidney disease with heart failure and stage 1 through stage 4 chronic kidney disease, or unspecified chronic kidney disease; J90 Pleural effusion, not elsewhere classified; C78.2 Secondary malignant neoplasm of pleura; I82.413 Acute embolism and thrombosis of femoral vein, bilateral; I82.433 Acute embolism and thrombosis of popliteal vein, bilateral; I82.442 Acute embolism and thrombosis of left tibial vein; Z66 Do not resuscitate; Z20.822 Contact with and (suspected) exposure to COVID-19; I50.810 Right heart failure, unspecified; I27.24 Chronic thromboembolic pulmonary hypertension; E78.5 Hyperlipidemia, unspecified; E66.01 Morbid (severe) obesity due to excess calories; E11.22 Type 2 diabetes mellitus with diabetic chronic kidney disease; I07.1 Rheumatic tricuspid insufficiency; Z68.35 Body mass index [BMI] 35.0-35.9, adult; N18.9 Chronic kidney disease, unspecified; Z99.81 Dependence on supplemental oxygen; Z90.710 Acquired absence of both cervix and uterus; Z90.12 Acquired absence of left breast and nipple; Z85.3 Personal history of malignant neoplasm of breast; Z79.01 Long term (current) use of anticoagulants; Z79.84 Long term (current) use of oral hypoglycemic drugs; Z79.899 Other long term (current) drug therapy
CPT/HCPCS: 36415; 36556; 36600; 71045; 71275; 80048; 80053; 81001; 82805; 83605; 83735; 83880; 84100; 84484; 85007; 85025; 85027; 85610; 85730; 87040; 87070; 87081; 87086; 87205; 87426; 87804; 93005; 93306; 93970; 94640; 96374; 96375; 97110; 97116; 97163; 99291; G0378; J2470; J3480; J7060